=== PATIENT | female | born 2005 | race Caucasian/White ===

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

== ENCOUNTER → 2025-03-05 | Outpatient (CLI) | payer BC, SELFPAY ==
--- OUTSIDE RECORDS SUMMARY | 2025-03-05 17:47 | XMS RPT_ITS | CCD ---
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 Name Role Phone Kvng WAN, Fay Primary Care Provider Kvng, Fay Referring Unavailable Kvng, Fay Attending Unavailable Kvng, Fay Primary Care Unavailable Kvng WAN, Fay Primary Care Provider Kvng WAN, Fay Primary Care Provider Kvng WAN, Fay Primary Care Provider JAILENE SAN Attending Unavailabl e SELF, SELF Referring Unavailable KVNG, FAY Primary Care Unavailable BACILIO PEREZ Attending Unavailable SELF, SELF Referring Unavailable KVNG, FAY Primary Care Unavailable SELF, SELF Referring Unavailable KVNG, FAY Primary Care Unavailable JAILENE SAN Attending Unavailabl e JAILENE SAN Attending Unavailabl e SELF, SELF Referring Unavailable KVNG, FAY Primary Care Unavailable SELF, SELF Referring Unavailable KVNG, FAY Primary Care Unavailable KVNG, FAY Attending Unavailable KVNG, FAY Primary Care Unavailable KVNG, FAY Referring Unavailable KVNG, FAY Primary Care Unavailable KVNG, FAY Primary Care Unavailable KVNG, FAY Referring Unavailable KVNG, FAY Primary Care Unavailable KVNG, FAY Referring Unavailable KVNG, FAY Attending Unavailable KVNG, FAY Primary Care Unavailable Allergies Allergy Classification Reported Allergen(s) Allergy Type Date of Onset Reaction(s) Facility (6 sources) Angiotensin-conve rting enzyme inhibitor agent Propensity to adverse reactions to drug 7 [facility] Work Phone: (6 sources) beta-Blocking agent Propensity to adverse reactions to drug [facility] ([facility] sources) environmental [Other] Propensity to adverse reactions 2 Unknown [facility] (20 sources) Angiotensin-conve rting enzyme inhibitor agent Propensity to adverse reactions to drug 7 Contraindicatio [facility] Work Phone: (20 sources) beta-Blocking agent Propensity to adverse reactions to drug [facility]: (8 sources) *Seasonal Propensity to adverse reactions to substance 3 [facility] Medications Current Medications Medication Drug Class(es) Dates Sig (Normalized) Sig (Original) amoxicillin 875 mg oral tablet (1 source) Penicillin-class Antibacterial Start: 12-20-2022 End: 12-30-2022 take 1 tablet by mouth every twelve hours, then take 1 tablet by mouth twice daily amoxicillin 875 MG tablet Indications: Acute upper respiratory infection Take 1 tablet by mouth every 12 hours for 10 days. One tablet PO bid 20 tablet 0 12/20/2022 12/30/2022 Active 24 hr amphetamine aspartate 6.25 mg / amphetamine sulfate 6.25 mg / dextroamphetamine saccharate 6.25 mg / dextroamphetamine sulfate 6.25 mg extended release oral capsule (20 sources) Central Nervous System Stimulant Start: 07-05-2024 End: 12-24-2024 take 1 capsule by mouth once daily amphetamine-dextro amphetamine XR (ADDERALL XR) 25 mg capsule Indications: Attention deficit hyperactivity disorder (ADHD), predominantly inattentive type Take 1 capsule by mouth once daily for 30 days. 30 capsule 10/04/2024 11/03/2024 Active Start: 10-08-2023 End: 07-05-2024 take 1 capsule by mouth once daily amphetamine-dextroamphetamine XR (ADDERA LL XR) 20 mg capsule Indications: Attention deficit hyperactivity disorder (ADHD), unspecified ADHD type Take 1 capsule by mouth once daily for 30 days. 30 capsule 05/14/2024 07/05/2024 Discontinued Start: 10-08-2023 End: 09-28-2023 take 1 capsule by mouth once daily amphetamine-dextroamphetamine XR (ADDERA LL XR) 20 mg capsule Indications: Attention deficit hyperactivity disorder (ADHD), unspecified ADHD type Take 1 capsule by mouth once daily for 30 days. Do not start before October 08, 2023. 30 capsule 0 10/08/2023 09/28/2023 Discontinued Start: 08-09-2023 End: 12-24-2024 take 1 tablet by mouth once daily in the morning dextroamphetamine-amphetamine (ADDERALL) 10 mg tablet Indications: Attention deficit hyperactivity disorder (ADHD), predominantly inattentive type Take 1 tablet by mouth every morning for 90 days. 90 tablet 09/25/2024 12/24/2024 Active Start: 05-04-2022 End: 11-28-2023 take 1 capsule by mouth once daily amphetamine-dextroamphetamine XR 20 MG C ap SR 24HR capsule Take 1 capsule by mouth daily. 05/04/2022 Active Start: 12-17-2021 End: 03-17-2022 take 1 capsule by mouth once daily, then take 5 capsules by mouth every twenty-four hours amphetamine-dextroamphetamine XR (ADDERA LL XR) 20 mg 24 hr capsule Indications: Attention deficit hyperactivity disorder (ADHD), unspecified ADHD type Take 1 capsule by mouth once daily for 30 days. Do not start before February 15, 2022. 30 capsule 0 02/15/2022 Active Start: 10-19-2021 End: 01-07-2022 take 1 capsule by mouth once daily amphetamine-dextroamphetamine XR (ADDERA LL XR) 10 mg 24 hr capsule Indications: Attention deficit hyperactivity disorder (ADHD), unspecified ADHD type Take 1 capsule by mouth once daily for 30 days. 30 capsule 0 12/08/2021 12/17/2021 Discontinued Start: 10-19-2021 End: 11-18-2021 take 1 tablet by mouth once daily dextroamphetamine-amphetamine (ADDERALL) 10 mg tablet Indications: Attention deficit hyperactivity disorder (ADHD), unspecified ADHD type Take 1 tablet by mouth once daily for 30 days. 30 tablet 0 10/19/2021 Active Start: 04-23-2021 End: 10-19-2021 take 1 capsule by mouth once daily amphetamine-dextroamphetamine XR (ADDERA LL XR) 20 mg 24 hr capsule Indications: Attention deficit hyperactivity disorder (ADHD), unspecified ADHD type Take 1 capsule by mouth once daily for 30 days. 30 capsule 0 07/20/2021 10/19/2021 Discontinued Comment on above: Take 1 capsule by [facility] once daily for 30 days. Do not start before June 22, 2021. Take 1 capsule by [facility] once daily for 30 days. Take 1 capsule by [facility] once daily for 30 days. Do not start before May 23, 2021. Take 1 tablet by [facility] once daily for 30 days. Take 1 capsule by [facility] once daily for 30 days. Do not start before January 16, 2022. Take 1 capsule by [facility] once daily for 30 days. Do not start before February 15, 2022. Take 1 capsule by [facility] once daily for 30 days. Do not start before July 07, 2022. Take 1 capsule by [facility] once daily for 30 days. Do not start before August 06, 2022. cephalexin 500 mg oral capsule (1 source) Cephalosporin Antibacterial Start: 07-10-19 End: 07-17-19 22 take 1 capsule by mouth three times daily cephALEXin (KEFLEX) 500 mg capsule Indications: Acute paronychia of finger of left hand Take 1 capsule by mouth three times daily for 7 days. 21 capsule 0 07/09/2021 07/16/2021 Active Comment on above: Take 1 capsule by [facility] three times daily for 7 days. cromolyn sodium 40 mg/ml ophthalmic solution (4 sources) Mast Cell Stabilizer Start: 07-06-19 25 take 1 drop(s) into the eye(s) four times daily Cromolyn Sodium (CROLOM) 4 % ophthalmic solution Use 1 drop in both eyes four times daily. 10 mL 07/05/2024 Active fexofenadine hydrochloride 180 mg oral tablet (19 sources) Histamine-1 Receptor Antagonist take 1 tablet by mouth once daily fexofenadine (ANIA ALLERGY) 180 mg tablet Take 180 mg by mouth once daily. Active fluconazole 150 mg oral tablet (11 sources) Azole Antifungal Start: 09-26-19 25 fluconazole (DIFLUCAN) 150 mg tablet Take one tablet daily as directed 10 tablet 09/25/2024 Active Start: 04-25-2023 End: 04-25-2023 take 1 tablet by mouth once Fluconazole (Diflucan) 150 MG tablet Indications: Acute cystitis without hematuria Take 1 tablet by mouth once for 1 dose. 1 tablet 04/25/2023 04/25/2023 Active Start: 12-28-2022 End: 08-09-2023 fluconazole (DIFLUCAN) 150 m g tablet Take one tab today. May repeat in three days if still symptomatic. 2 tablet 0 12/28/2022 08/09/2023 Discontinued Comment on above: Take one tab today. May repeat in three days if still symptomatic. fluticasone propionate 0.05 mg/actuat metered dose nasal spray (9 sources) Corticosteroid Start: 01-07-2023 End: 08-09-2023 fluticasone 50 MCG/ACT Suspension nasal spray 2 sprays by Nasal route daily. 9.9 mL 2 07/04/2023 Active levonorgestrel 0.451023 mg/hr intrauterine system (20 sources) Progestin, Progestin-containing Intrauterine Device Start: 03-23-2023 End: 03-21-2031 levonorgestrel (MIRENA) 21 mcg/24 hours (8 yrs) 52 mg IUD Indications: Encounter for IUD insertion 1 Each by INTRAUTERINE route as directed. 1 Each 03/23/2023 03/21/2031 Active Levonorgestrel 2 0 MCG/DAY 1 Intra Uterine Device by Intrauterine route Once. use as directed Active Comment on above: 1 Each by INTRAUTERI NE route as directed. mupirocin 0.02 mg/mg topical ointment (1 source) RNA Synthetase Inhibitor Antibacterial Start: End: 2 mupirocin (BACTROBAN) 2 % ointment Indications: Acute paronychia of finger of left hand Apply to affected area three times daily for 10 days. 22 g 0 07/09/2021 07/19/2021 Active Comment on above: Apply to affected ar ea three times daily for 10 days. olopatadine 1 mg/ml ophthalmic solution (9 sources) Histamine-1 Receptor Inhibitor Start: take 1 drop(s) into the eye(s) twice daily olopatadine (PATANOL) 0.1 % ophthalmic solution Use 1 drop in both eyes two times a day. 5 mL 07/05/2024 Active Start: 07-04-2023 take 1 drop(s) into the eye(s) twice daily as needed olopatadine 0.1 % Solution ophthalmic solution Place 1 drop in both eyes 2 times daily as needed for Allergies. 5 mL 1 07/04/2023 Active sulfamethoxazole 800 mg / trimethoprim 160 mg oral tablet (1 source) Dihydrofolate Reductase Inhibitor Antibacterial, Sulfonamide Antimicrobial Start: 04-25-2023 End: 04-28-2023 take 1 tablet by mouth twice daily Sulfamethoxazole-trimethoprim 800-160 MG per tablet Indications: Acute cystitis without hematuria Take 1 tablet by mouth 2 times daily for 3 days. 6 tablet 04/25/2023 04/28/2023 Active Completed/Discontinued Medications Medication Drug Class(es) Dates Sig (Normalized) Sig (Original) [id number] 200 actuat albuterol 0.09 mg/actuat metered dose inhaler (18 sources) beta2-Adrenergic Agonist Start: 12-13-2022 End: 09-25-2024 take 2 puff(s) by inhalation every four to six hours as needed for cough albuterol HFA (PROVENTIL HFA, VENTOLIN HFA) 90 mcg/actuation inhaler Inhale 2 puffs every 4 - 6 hours as needed for cough, wheezing, or shortness of breath 1 Each 12/13/2022 09/25/2024 Discontinued Comment on above: Inhale 2 puffs every 4 - 6 hours as needed for cough, wheezing, or shortness of breath benzonatate 100 mg oral capsule (7 sources) Non-narcotic Antitussive Start: 12-13-2022 End: 08-09-2023 take 1 capsule by mouth every eight hours as needed benzonatate (TESSALON PERLE) 100 mg capsule Take 1 capsule by mouth three times a day as needed for cough. 15 capsule 0 12/13/2022 08/09/2023 Discontinued Comment on above: Take 1 capsule by [facility] three times a day as needed for cough. cetirizine hydrochloride 10 mg oral tablet (20 sources) Histamine-1 Receptor Antagonist End: 08-09-2023 cetirizine (ZYRTEC) 10 mg tablet Take by mouth at bedtime as needed. 0 08/09/2023 Discontinued End: 10-19-2021 Cetirizine (ZYRTEC) 10 mg ca p Take by mouth as needed. 0 10/19/2021 Discontinued Comment on above: Take by mouth as nee ded. Take by mouth at bed time as needed. Desogestrel / Ethinyl Estradiol (20 sources) Progestin, Estrogen Start: take 1 tablet by mouth once daily, then take 0.15 tablet by mouth once Desogestrel-Ethinyl Estradiol (ENSKYCE) 0.15-0.03 mg per tablet Indications: Menstrual-related mood disorder , Dysmenorrhea , Surveillance for control, oral contraceptives TAKE 1 TABLET BY MOUTH ONCE DAILY. FOR CONTINUOUS USE. 112 tablet 5 02/07/2023 Active Start: 05-10-2022 End: 02-07-2023 take 1 tablet by mouth once daily ENSKYCE 0.15-0.03 mg per tablet Indications: Menstrual-related mood disorder , Dysmenorrhea , Surveillance for control, oral contraceptives TAKE 1 TABLET BY MOUTH ONCE DAILY. FOR CONTINUOUS USE. 112 tablet 5 05/10/2022 02/07/2023 Discontinued Start: 05-10-2022 desogestrel-et hinyl estradiol (Enskyce) 0.15-30 MG-MCG tablet TAKE 1 TABLET BY MOUTH ONCE DAILY. FOR CONTINUOUS USE. 0 05/10/2022 Active Start: 05-10-2022 take 1 tablet by telma th once daily ENSKYCE 0.15-0.03 mg per tablet Indications: Menstrual-related mood disorder , Dysmenorrhea , Surveillance for control, oral contraceptives TAKE 1 TABLET BY MOUTH ONCE DAILY. FOR CONTINUOUS USE. 112 tablet 5 05/10/2022 Active Start: 04-28-2021 take 1 tablet by telma th once daily, then take 0.15 tablet by mouth once Desogestrel-Ethinyl Estradiol (ENSKYCE) 0.15-0.03 mg per tablet Indications: Menstrual-related mood disorder , Dysmenorrhea , Surveillance for control, oral contraceptives Take 1 tablet by mouth once daily. For continuous use. 112 tablet 5 04/28/2021 Active Start: 11-20-2020 Desogestrel-Et hinyl Estradiol Active TAB PO November 19, 2020 11:00pm Comment on above: Take 1 tablet by telma th once daily. For continuous use. [id number] 0.3 ml EPINEPHrine 1 mg/ml auto-injector (20 sources) alpha-Adrenergic Agonist, beta-Adrenergic Agonist, Catecholamine Start: 022 End: EPINEPHrine (EPIPEN 2-CHEMA) 0.3 mg/0.3 mL auto-injector Inject 0.3 mL intramuscularly as needed (for allergic reaction.Seek emergent medical care immediately after use.Disp:one 2-pack w/corporate sales trainer). 1 Each 1 04/03/2021 06/07/2022 Discontinued Comment on above: Inject 0.3 mL intram uscularly as needed (for allergic reaction.Seek emergent medical care immediately after use.Disp:one 2-pack w/corporate sales trainer). 24 hr fexofenadine hydrochloride 180 mg / pseudoephedrine hydrochloride 240 mg extended release oral tablet (20 sources) alpha-Adrenergic Agonist, Histamine-1 Receptor Antagonist take 1 tablet by mouth once daily, then take 1 tablet by mouth every twenty-four hours Fexofenadine-Pseudoep hedrine (ANIA-D 24 HOUR) 180-240 mg per 24 hr tablet Take 1 tablet by mouth once daily. 0 Active Comment on above: Take 1 tablet by [facility] once daily. ketotifen 0.25 mg/ml ophthalmic solution (20 sources) Histamine-1 Receptor Inhibitor End: 023 ketotifen fumarate (ZADITOR) 0.025 % (0.035 %) ophthalmic solution 1 Drop twice daily. 0 03/29/2022 Discontinued Comment on above: 1 Drop twice daily. ondansetron 4 mg disintegrating oral tablet (1 source) Serotonin-3 Receptor Antagonist Start: 015 End: take 4 mg by mouth every eight hours as needed Ondansetron Discontinued 4 MG PO EVERY 8 HOURS NEEDED March 08, 2015 12:00am October 18, 2020 7:18am 12 hr pseudoephedrine hydrochloride 120 mg extended release oral tablet (5 sources) alpha-Adrenergic Agonist Start: 023 End: 024 Pseudoephedrine HCl (SUDAFED SR) 120 mg TbER Take 120 mg by mouth. 0 12/20/2022 08/09/2023 Discontinued Start: 12-20-2022 pseudoephedrin e CR 120 MG Tab SR 12 HR tablet Indications: Acute upper respiratory infection Take 1 tablet by mouth 2 times daily as needed for Congestion (Take regularly for five days, then prn). 20 tablet 0 12/20/2022 Active Comment on above: Take 120 mg by mouth . Problems Active Problems Problem Classification Problem Date Documented Da te Episodic/Chronic Abdominal pain (1 source) Left flank pain; Translations: [Unspecified abdominal pain] 01-07-2023 Episodic Anxiety disorders (3 sources) Generalized anxiety disorder; Translations: [Generalized anxiety disorder] Onset: 01-24-2024 01-24-2024 Chronic Attention-deficit, conduct, and disruptive behavior disorders (20 sources) Attention deficit hyperactivity disorder; Translations: [Attention-deficit hyperactivity disorder, unspecified type] Onset: 01-08-2021 01-08-2021 Chronic Attention-deficit, conduct, and disruptive behavior disorders (1 source) Attention deficit hyperactivity disorder, combined type; Translations: [Attention-deficit hyperactivity disorder, combined type] 01-24-2024 Chronic Attention-deficit, conduct, and disruptive behavior disorders (2 sources) Attention-deficit hyperactivity disorder, combined type; Translations: [Attention-deficit hyperactivity disorder, combined type] Onset: 01-24-2024 Chronic Attention-deficit, conduct, and disruptive behavior disorders (4 sources) Attention deficit hyperactivity disorder, predominantly inattentive type; Translations: [Attention-deficit hyperactivity disorder, predominantly inattentive type] 07-05-2024 Chronic Attention-deficit, conduct, and disruptive behavior disorders (1 source) Attention-deficit hyperactivity disorder, predominantly inattentive type; Translations: [Attention deficit hyperactivity disorder (ADHD), predominantly inattentive type] Onset: 01-08-2021 Chronic Contraceptive and procreative management (4 sources) Oral contraception; Translations: [Encounter for surveillance of contraceptive pills] Episodic Diseases of mouth; excluding dental (3 sources) Disorder of lip; Translations: [Diseases of lips] Onset: 04-25-2024 04-25-2024 Episodic Genitourinary symptoms and ill-defined conditions (2 sources) Increased frequency of urination; Translations: [Frequency of micturition] 04-25-2023 Episodic Immunizations and screening for infectious disease (8 sources) Suspected disease caused by 2019-nCoV; Translations: [Suspected COVID-19 virus infection] Onset: 01-17-2024 Episodic Menstrual disorders (2 sources) Dysmenorrhea; Translations: [Dysmenorrhea, unspecified] Chronic Mood disorders (2 sources) Premenstrual tension syndrome; Translations: [Mood disorder due to known physiological condition, unspecified] Episodic Other aftercare (2 sources) Long-term current use of drug therapy; Translations: [Other mcc (current) drug therapy] Onset: 04-25-2024 04-25-2024 Episodic Other aftercare (2 sources) 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; Translations: [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] Onset: 04-25-2024 Episodic Other aftercare (1 source) Drug indicated; Translations: [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] 09-25-2024 Episodic Other bone disease and musculoskeletal deformities (2 sources) Segmental and somatic dysfunction; Translations: [Segmental and somatic dysfunction of lumbar region] Episodic Other connective tissue disease (1 source) Pain in both feet; Translations: [Pain in right foot] Episodic Other eye disorders (1 source) Disorder of eye; Translations: [Unspecified disorder of eye and adnexa] 07-04-2023 Episodic Other infections; including parasitic (1 source) H/O: infectious disease; Translations: [Personal history of other infectious and parasitic diseases] 04-25-2023 Episodic Other liver diseases (1 source) Elevated liver enzymes level; Translations: [Abnormal levels of other serum enzymes] 09-27-2024 Episodic Other liver diseases (1 source) Abnormal levels of other serum enzymes; Translations: [Elevated liver enzymes] Onset: 10-19-2024 Episodic Other non-traumatic joint disorders (2 sources) Pain in right knee; Translations: [Pain in joint, lower leg] Episodic Other nutritional; endocrine; and metabolic disorders (1 source) Lipids abnormal; 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] 09-27-2024 Chronic Other nutritional; endocrine; and metabolic disorders (1 source) Other lipoprotein metabolism disorders; Translations: [Lipids abnormal] Onset: 10-19-2024 Chronic Other nutritional; endocrine; and metabolic disorders (1 source) Weight gain; Translations: [Abnormal weight gain] 08-09-2023 Episodic Other screening for suspected conditions (not mental disorders or infectious disease) (2 sources) Patient encounter status; Translations: [Encounter for screening for diseases of the blood and blood-forming organs and certain disorders involving the immune mechanism] Onset: 09-25-2024 09-25-2024 Episodic Other skin disorders (3 sources) Acne vulgaris; Translations: [Acne vulgaris] Onset: 04-25-2024 01-24-2024 Episodic Other skin disorders (2 sources) Asteatosis cutis; Translations: [Xerosis cutis] Onset: 04-25-2024 04-25-2024 Episodic Other skin disorders (1 source) Acne vulgaris; Translations: [Acne vulgaris] Onset: 04-25-2024 Episodic Other skin disorders (1 source) Xerosis cutis; Translations: [Xerosis cutis] Onset: 04-25-2024 Episodic Other upper respiratory disease (20 sources) Allergic rhinitis due to pollen; Translations: [Allergic rhinitis due to pollen] Onset: 07-13-2016 Chronic Other upper respiratory disease (20 sources) Allergic rhinitis; Translations: [Allergic rhinitis, unspecified] Onset: 05-01-2012 05-01-2012 Chronic Other upper respiratory disease (20 sources) Seasonal allergic rhinitis; Translations: [Other allergic rhinitis] Onset: 05-01-2012 Resolved: 04-25-2023 07-13-2016 Chronic Other upper respiratory disease (20 sources) Allergic rhinitis due to animal hair and dander; Translations: [Allergic rhinitis due to animal (cat) (dog) hair and dander] Onset: 07-13-2016 07-13-2016 Chronic Other upper respiratory disease (1 source) Allergic rhinitis caused by mold; Translations: [Other allergic rhinitis] Chronic Other upper respiratory infections (2 sources) Sore throat symptom; Translations: [Acute pharyngitis, unspecified] 12-20-2022 Episodic Otitis media and related conditions (1 source) Dysfunction of right eustachian tube; Translations: [Unspecified Eustachian tube disorder, right ear] 01-07-2023 Episodic Skin and subcutaneous tissue infections (1 source) Onychia of finger; Translations: [Cellulitis of left finger] Episodic Spondylosis; intervertebral disc disorders; other back problems (1 source) Backache; Translations: [Dorsalgia, unspecified] Episodic Sprains and strains (2 sources) Strain of calf muscle; Translations: [Strain of other muscle(s) and tendon(s) at lower leg level, right leg, initial encounter] Onset: 02-12-2022 Episodic Urinary tract infections (1 source) Acute cystitis; Translations: [Acute cystitis without hematuria] 04-25-2023 Episodic Past or Other Problems Problem Classification Problem Date Documented Da te Episodic/Chronic Allergic reactions (14 sources) Non-celiac gluten sensitivity; Translations: [Celiac disease] Onset: 02-01-2019 Resolved: 04-03-2021 04-03-2021 Chronic Inflammation; infection of eye (except that caused by tuberculosis or sexually transmitteddisease) (14 sources) Acute atopic conjunctivitis; Translations: [Acute atopic conjunctivitis, unspecified eye] Onset: 05-01-2012 Resolved: 02-01-2019 02-01-2019 Episodic Intracranial injury (20 sources) Concussion with no loss of consciousness; Translations: [Concussion without loss of consciousness, initial encounter] Onset: 05-08-2019 Resolved: 09-25-2024 05-08-2019 Episodic Other connective tissue disease (14 sources) Ligamentous laxity of ankle region; Translations: [Disorder of ligament, unspecified ankle] Onset: 06-04-2013 Resolved: 02-01-2019 02-01-2019 Episodic Other eye disorders (2 sources) Unspecified disorder of eye and adnexa; Translations: [Unspecified disorder of eye and adnexa] Onset: 07-04-2023 Episodic Residual codes; unclassified (14 sources) Obstructive sleep apnea syndrome; Translations: [Obstructive sleep apnea (adult) (pediatric)] Onset: 11-24-2009 Resolved: 11-24-2009 Chronic Syncope (14 sources) Vasovagal syncope; Translations: [Syncope and collapse] Onset: 07-29-2009 Resolved: 02-01-2019 02-01-2019 Episodic Unclassified (1 source) History of headache; Translations: [History of frequent headaches] Viral infection (15 sources) Viral disease; Translations: [Viral infection, unspecified] Onset: 09-18-2010 Resolved: 02-01-2019 12-22-2022 Episodic Results Test Name Value Interpretation Reference Range Facil ity Hepatic function 2000 panelo n 10-19-2024 Albumin [Mass/Vol] 4.5 g/dL Normal 3.9-4.9 [facility] Comment on above: Order Comment: Speci men Type: BLOOD SPECIMEN Ordering Facility: Address: [address] [place] [address] Performed By: #### 2 [id number], [id number] #### [facility] CLIA [id number] [address] [id number] [place] [Catalytic activity/Vol] 70 U/L Normal 34-123 [facility] Comment on above: Order Comment: Speci men Type: BLOOD SPECIMEN Ordering Facility: Address: [address] [place], [place] [id number] Performed By: #### 2 4325-3, 39806-7 #### [facility] CLIA [id number] [address] [place], [place] [address] [place] ALT [Catalytic activity/Vol] 13 U/L Normal 7-38 [facility] Comment on above: Order Comment: Speci men Type: BLOOD SPECIMEN Ordering Facility: Address: [address] [place] [address] Performed By: #### 2 4325-3, 15383-5 #### [facility] CLIA [id number] [address] [place] [address] [place] AST [Catalytic activity/Vol] 24 U/L Normal 13-35 [facility] Comment on above: Order Comment: Speci men Type: BLOOD SPECIMEN Ordering Facility: Address: [address] [place] [address] Performed By: #### 2 4325-3, 47395-8 #### [facility] CLIA [id number] [address] [place] [address] [place] Bilirubin [Mass/Vol] 0.7 mg/dL Normal 0.2-1.3 [facility] Comment on above: Order Comment: Speci men Type: BLOOD SPECIMEN Ordering Facility: Address: [address] [place], [place] [address] Performed By: #### 2 4325-3, 07888-5 #### [facility] CLIA [id number] [address] [place], [place] [address] [place] Bilirubin.conjugated [Mass/Vol] 0.2 mg/dL Normal <0.3 [facility] Comment on above: Order Comment: Speci men Type: BLOOD SPECIMEN Ordering Facility: Address: [address] [place] [address] Performed By: #### 2 4325-3, 49404-8 #### [facility] CLIA [id number] [address] [place] [address] [place] Protein [Mass/Vol] 7.4 g/dL Normal 6.3-8.0 [facility] Comment on above: Order Comment: Speci men Type: BLOOD SPECIMEN Ordering Facility: Address: [address] [place] [address] Performed By: #### 2 4325-3, 68357-4 #### [facility] CLIA [id number] [address] [place] [address] [place] Lipid 1996 panelon 5 Cholesterol [Mass/Vol] 200 mg/dL High <200 [facility] Comment on above: Order Comment: Speci men Type: BLOOD SPECIMEN Ordering Facility: Address: [address] [place] [address] Result Comment: <200 mg/dL, Desirable 200-239 mg/dL, Borderline high >239 mg/dL, High Performed By: #### 2 4325-3, 14690-7 #### [facility] CLIA [id number] [address] [place] [address] [place] Cholesterol in HDL [Mass/Vol] 63 mg/dL Normal >39 [facility] Comment on above: Order Comment: Speci men Type: BLOOD SPECIMEN Ordering Facility: Address: [address] [place] [address] Result Comment: 40-5 9 mg/dL, Acceptable >59 mg/dL, High: Negative risk factor for coronary heart disease <40 mg/dL, Low: Positive risk factor for coronary heart disease Performed By: #### 2 4325-3, 74157-1 #### [facility] CLIA [id number] [address] [place] [address] [place] Cholesterol in LDL [Mass/Vol] 128 mg/dL High <100 [facility] Comment on above: Order Comment: Alejo parsons Type: BLOOD SPECIMEN Ordering Facility: Address: [address] [place] [address] Result Comment: <100 mg/dL, Optimal 100-129 mg/dL, Near optimal/above optimal 130-159 mg/dL, Borderline high 160-189 mg/dL, High >189 mg/dL, Very high Secondary prevention optimal LDL Cholesterol levels are recommended to be <70 mg/dL LDL cholesterol is calculated using the Kulkarni-NIH equation. Performed By: #### 2 4325-3, 63038-3 #### [facility] CLIA [id number] [address] [place] [address] [place] Cholesterol in LDL/Cholesterol in HDL [Mass ratio] 2.03 {ratio} Normal <2.54 [facility] Comment on above: Order Comment: Alejo parsons Type: BLOOD SPECIMEN Ordering Facility: Address: [address] [place] [address] Result Comment: Weston fuentes: 1. National Cholesterol Education Program ATP III Guideline At-A-Glance Quick Desk Reference: National Heart, Lung, and Blood [place]. National Institutes of Health. 2001: NIH Publication No. 01-3305. 2. An International Atherosclerosis Society position paper: global recommendations for the management of dyslipidemia: executive summary, Atherosclerosis. 2014: 232(2):410-413. Cut Points from the Lipid Research Clinic's Prevalence Study for ages 20 to 24 years can be located in the following reference: Expert Panel on Integrated Guidelines for Cardiovascular Health and Risk Reduction in Children and Adolescents: National Heart, Lung and Blood [place]. Pediatrics. 2011:128(Suppl 5):X851-195. Performed By: #### 2 4325-3, 35281-6 #### [facility] CLIA [id number] [facility] [place] [address] [place] Cholesterol in VLDL [Mass/Vol] 9 mg/dL Normal <30 [facility] Comment on above: Order Comment: Speci men Type: BLOOD SPECIMEN Ordering Facility: Address: [address] [place] [id number] Performed By: #### 2 4325-3, 35067-4 #### [facility] CLIA [id number] [address] [place], [place] [address] [place] Cholesterol non HDL [Mass/Vol] 137 mg/dL High <130 [facility] Comment on above: Order Comment: Speci men Type: BLOOD SPECIMEN Ordering Facility: Address: [address] [place] [address] Result Comment: <130 mg/dL, Optimal 130-159 mg/dL, Near optimal/above optimal 160-189 mg/dL, Borderline high 190-219 mg/dL, High >219 mg/dL, Very high Secondary prevention optimal non HDL Cholesterol levels are recommended to be <100 mg/dL Performed By: #### 2 4325-3, 91219-8 #### [facility] CLIA [id number] [address] [place] [address] [place] Cholesterol.total/Cho lesterol in HDL [Mass ratio] 3.17 {ratio} Normal <5.10 [facility] Comment on above: Order Comment: Speci men Type: BLOOD SPECIMEN Ordering Facility: Address: [address] [place] [address] Performed By: #### 2 4325-3, 00274-9 #### [facility] CLIA [id number] [address] [place], [place] [address] [place] FASTING TIME 13 hrs Normal [facility] Comment on above: Order Comment: Speci men Type: BLOOD SPECIMEN Ordering Facility: Address: [address] [place], [place] [address] Performed By: #### 2 4325-3, 42011-4 #### [facility] CLIA [id number] [address] [place], [place] [address] [place] Triglyceride [Mass/Vol] 51 mg/dL Normal <150 [facility] Comment on above: Order Comment: Speci men Type: BLOOD SPECIMEN Ordering Facility: Address: [address] [place] [address] Result Comment: <150 mg/dL, Normal 150-199 mg/dL, Borderline high 200-499 mg/dL, High >499 mg/dL, Very high Performed By: #### 2 4325-3, 09365-0 #### [facility] CLIA [id number] [address] [place] [address] [place] CNPNon 10-15-2024 CNPN Telephone (PEDSWS) KATELYNN BAUER ([id number]) 3 F Date Time Provider Department 10/15/24 FAY CALDERON During your visit today, we recorded the following information about you: Fay Calderon MD 10/15/2024 2:05 PM Signed Please help parent or patient schedule pt with Food allergy clinic MD Sami Grossman Amanda S, RN 10/15/2024 2:15 PM Signed Left message to call office. 10/15/2024 2:15 PM VALERIE Marquez Cherryle, RN 10/16/2024 4:46 PM Signed scheduled Diana Davies RN Allergies As of Date: 10/15/2024 (No Known Allergies) Date Reviewed: 09/25/2024 Reviewed by: Valerie Alanis LPN - Fully Assessed Reason for Visit: food allergy clinic appointment [Other] Primary Visit Diagnosis:History of peanut allergy [Z91.010] Order(s):[facility] [[id number]] Order #: [id number]: 1 Prescriptions as of 10/16/2024 - amphetamine-dextroam phetamine XR (ADDERALL XR) 25 mg capsule Take 1 capsule by mouth once daily for 30 days. - fluconazole (DIFLUCAN) 150 mg tablet Take one tablet daily as directed - amphetamine-dextroam phetamine XR (ADDERALL XR) 25 mg capsule Take 1 capsule by mouth once daily for 90 days. - dextroamphetamine-am phetamine (ADDERALL) 10 mg tablet Take 1 tablet by mouth every morning for 90 days. - Cromolyn Sodium (CROLOM) 4 % ophthalmic solution Use 1 drop in both eyes four times daily. - olopatadine (PATANOL) 0.1 % ophthalmic solution Use 1 drop in both eyes two times a day. - fexofenadine (ANIA ALLERGY) 180 mg tablet Take 180 mg by mouth once daily. - levonorgestrel (MIRENA) 21 mcg/24 hours (8 yrs) 52 mg IUD 1 Each by INTRAUTERINE route as directed. Problem List As Of Date 10/15/2024 Noted Resolved Syncopes, vasovagal 07/29/2009 02/01/2019 Obstructive Sleep Apnea [G47.33] 11/24/2009 11/24/2009 Verruca [B07.9] 09/18/2010 02/01/2019 Acute atopic conjunctivitis [H10.10] 05/01/2012 02/01/2019 Allergic rhinitis (md giorgio, tr, gr, we ,ra) [J30.*05/01/2012 Ligamentous laxity of ankle [M24.273] 06/04/2013 02/01/2019 Seasonal allergic rhinitis due to pollen [J30.1]07/13/2016 Seasonal allergic rhinitis due to fungal spores*07/13/2016 Allergic rhinitis due to animal hair and dander*07/13/2016 Gluten intolerance [K90.41] 02/01/2019 04/03/2021 Concussion without loss of consciousness [S06.0*05/08/2019 09/25/2024 Attention deficit hyperactivity disorder (ADHD)*01/08/2021 Encounter Status:Closed by DIANA DAVIES on 10/16/24 [facility] C. trachomatis+N. gonorrhoea e DNA KAYE+probe Ql (Unsp spec)on 09-25-2024 C. trachomatis rRNA KAYE+probe Ql (Unsp spec) Not detected Normal Not detected [facility] Comment on above: Order Comment: Speci men Type: URINE SPECIMENOrdering Facility: Address: [address] [place] [address] Performed By: #### 3 6902-5, TRVAMP ####[facility] [id number] [address] N. gonorrhoeae rRNA KAYE+probe Ql (Unsp spec) Not detected Normal Not detected [facility] Comment on above: Order Comment: Speci men Type: URINE SPECIMENOrdering Facility: Address: [address] [place] [address] Performed By: #### 3 6902-5, TRVAMP ####[facility] [id number] [address] OF [facility] CBC panel Auto (Bld)on 09-25 Erythrocyte distribution width (RBC) [Ratio] 12.8 % 11.5 - 15.0 % [facility] Hematocrit (Bld) [Volume fraction] 39.7 % 36.0 - 46.0 % [facility] Hemoglobin (Bld) [Mass/Vol] 13.2 g/dL 11.5 - 15.5 g/dL [facility] Interpretation and review of laboratory results Normal [facility] MCH (RBC) [Entitic mass] 30.1 pg 26.0 - 34.0 pg [facility] MCHC (RBC) [Mass/Vol] 33.2 g/dL 30.5 - 36.0 g/dL [facility] MCV (RBC) [Entitic vol] 90.4 fL 80.0 - 100.0 fL [facility] Nucleated RBC (Bld) [#/Vol] NINF [facility] Platelet mean volume (Bld) [Entitic vol] 9.9 fL 9.0 - 12.7 fL [facility] Platelets (Bld) [#/Vol] 269 10*3/uL [facility] RBC (Bld) [#/Vol] 4.39 10*6/uL 3.90 - 5.2 0 m/uL [facility] WBC (Bld) [#/Vol] 5.83 10*3/uL [facility] Erythrocyte distribution width (RBC) [Ratio] 12.8 % Normal 11.5-15.0 [facility] Comment on above: Order Comment: Speci men Type: BLOOD SPECIMEN Ordering Facility: Address: [address] [place] [address] Performed By: #### 5 8410-2 #### [facility] CLIA [id number] [address] [place] [address] [place] Hematocrit (Bld) [Volume fraction] 39.7 % Normal 36.0-46.0 [facility] Comment on above: Order Comment: Speci men Type: BLOOD SPECIMEN Ordering Facility: Address: [address] [place] [address] Performed By: #### 5 8410-2 #### [facility] CLIA [id number] [address] [place] [address] [place] Hemoglobin (Bld) [Mass/Vol] 13.2 g/dL Normal 11.5-15.5 [facility] Comment on above: Order Comment: Speci men Type: BLOOD SPECIMEN Ordering Facility: Address: [address] [place] [address] Performed By: #### 5 8410-2 #### [facility] CLIA [id number] [address] [place] [address] [place] MCH (RBC) [Entitic mass] 30.1 pg Normal 26.0-34.0 [facility] Comment on above: Order Comment: Speci men Type: BLOOD SPECIMEN Ordering Facility: Address: [address] [place] [address] Performed By: #### 5 8410-2 #### [facility] CLIA [id number] [address] [place] [address] [place] MCHC (RBC) [Mass/Vol] 33.2 g/dL Normal 30.5-36.0 [facility] Comment on above: Order Comment: Speci men Type: BLOOD SPECIMEN Ordering Facility: Address: [address] [place] [address] Performed By: #### 5 8410-2 #### [facility] CLIA [id number] [address] [place] [address] [place] MCV (RBC) [Entitic vol] 90.4 fL Normal 80.0-100.0 [facility] Comment on above: Order Comment: Speci men Type: BLOOD SPECIMEN Ordering Facility: Address: [address] [place] [address] Performed By: #### 5 8410-2 #### [facility] CLIA [id number] [address] [place] [address] [place] Nucleated RBC (Bld) [#/Vol] 10*3/uL Normal <0.01 [facility] Comment on above: Order Comment: Speci men Type: BLOOD SPECIMEN Ordering Facility: Address: [address] [place] [address] Performed By: #### 5 8410-2 #### [facility] CLIA [id number] [address] [place] [address] [place] Platelet mean volume (Bld) [Entitic vol] 9.9 fL Normal 9.0-12.7 [facility] Comment on above: Order Comment: Speci men Type: BLOOD SPECIMEN Ordering Facility: Address: [address] [place] [address] Performed By: #### 5 8410-2 #### [facility] CLIA [id number] [address] [place] [address] [place] Platelets (Bld) [#/Vol] 269 10*3/uL Normal 150-400 [facility] Comment on above: Order Comment: Speci men Type: BLOOD SPECIMEN Ordering Facility: Address: [address] [place] [address] Performed By: #### 5 8410-2 #### [facility] CLIA [id number] [address] [place] [address] [place] RBC (Bld) [#/Vol] 4.39 10*6/uL Normal 3.90-5.20 [facility] Comment on above: Order Comment: Speci men Type: BLOOD SPECIMEN Ordering Facility: Address: [address] [place] [address] Performed By: #### 5 8410-2 #### [facility] CLIA [id number] [address] [place] [address] [place] WBC (Bld) [#/Vol] 5.83 10*3/uL Normal 3.70-11.00 [facility] Comment on above: Order Comment: Speci men Type: BLOOD SPECIMEN Ordering Facility: Address: [address] [place] [address] Performed By: #### 5 8410-2 #### [facility] CLIA [id number] [address] [place] [address] OF [facility] CNOVon 09-25-2024 CNOV Office Visit (PEDSWS) KATELYNN BAUER ([id number]) 3 F Date Time Provider Department 09/25/24 11:30 AM FAY CALDERON During your visit today, we recorded the following information about you: Temperature Pulse Respiration Blood pressure 98.1 degrees 72/minute 16/minute 110/74 Weight Height 73.4 kg 1.743 m Fay Calderon MD 09/25/2024 1:31 PM Signed WELL VISIT PEDIATRIC 18+ YRS OLD Katelynn is a 19 year old who presents today for well exam. SUBJECTIVE CONCERNS: no additional concerns HISTORY ACTIVE PROBLEM LIST Attention Deficit Hyperactivity Disorder (Adhd) - 01/08/2021 Concussion Without Loss of Consciousness - 05/08/2019 Comment: 05/30, 05/03 Seasonal Allergic Rhinitis Due to Pollen - 07/13/2016 Seasonal Allergic Rhinitis Due to Fungal Spores - 07/13/2016 Allergic Rhinitis Due to Animal Hair and Dander - 07/13/2016 Allergic rhinitis (c, md, tr, gr, we ,ra) - 05/01/2012 PAST MEDICAL HISTORY Diagnosis Date ADHD (attention deficit hyperactivity disorder) 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 Syncopal episodes 5x total PAST SURGICAL HISTORY Procedure Laterality Date PAST SURGICAL HISTORY OF 07/2018 endoscopy TONSILLECTOMY AND ADENOIDECTOMY T/A (under age 12 years) ALLERGIES No Known Allergies Medications: Cromolyn Sodium (CROLOM) 4 % ophthalmic solution Use 1 drop in both eyes four times daily. olopatadine (PATANOL) 0.1 % ophthalmic solution Use 1 drop in both eyes two times a day. fexofenadine (ANIA ALLERGY) 180 mg tablet Take 180 mg by mouth once daily. levonorgestrel (MIRENA) 21 mcg/24 hours (8 yrs) 52 mg IUD 1 Each by INTRAUTERINE route as directed. albuterol HFA (PROVENTIL HFA, VENTOLIN HFA) 90 mcg/actuation inhaler Inhale 2 puffs every 4 - 6 hours as needed for cough, wheezing, or shortness of breath FAMILY HISTORY Problem Relation Age of Onset other (osteopenia) Mother None Father None Brother Social History Social History Narrative Not on file Smoking Exposure: Do you spend a significant amount of time with anyone who smokes? No School: Entering College. No academic or school related concerns No behavioral concerns Any concerns regarding peer interactions? No Recreational Screen Time totaling more than 2 hours of screen time per day. Physical Activity: more than 1 hour of physical activity per day Fainting, dizziness, significant shortness of breath or chest pain with sports or exercise: No History of concussion in the last year: No Safety: 04/03/2021 Pediatric SDOH - Response to gun questions Are there any guns kept in or around your home or where your child spends time? No Reviewed seat belts, bike helmets, and smoke detectors Diet: -Diet is well balanced and appropriate for age -Fruits are eaten with most meals -Vegetables are eaten with most meals -Drinks whole milk -Drinks water daily -Regularly eats meals with family Elimination: no concerns Dental: dental care current Sleep: -no sleep concerns Yes, cell phone turned off before bedtime- Yes Vision: No vision concerns Hearing: No hearing concerns Growth: No growth concerns Gynecological history: IUD Sexual History: Attraction: male Sexually Active: yes Screening tools reviewed and discussed with patient/dwcskb-FZU-6 , PHQ-9, and Social Determinants of Health. Please see Patient Entered Data. SDOH: Food Insecurity: No Food Insecurity (06/07/2022) Hunger Vital Sign Worried About Running Out of Food in the Last Year: Never true Ran Out of Food in the Last Year: Never true Financial Resource Strain: Low Risk (06/07/2022) Overall Financial Resource Strain (CARDIA) Difficulty of Paying Living Expenses: Not hard at all Transportation Needs: No Transportation Needs (06/07/2022) PRAPARE - Transportation Lack of Transportation (Medical): No Lack of Transportation (Non-Medical): No Housing Stability: Low Risk (06/07/2022) Housing Stability Vital Sign Unable to Pay for Housing in the Last Year: No Number of Places Lived in the Last Year: 1 Unstable Housing in the Last Year: No Discussed SDOH results with patient/family. SDOH needs identified: no concerns identified OBJECTIVE Physical Exam: BP 110/74 Pulse 72 Temp 36.7 ?C (98.1 ?F) (Temporal) Resp 16 Ht 174.3 cm (5' 8.62) Wt 73.4 kg (161 lb 12.8 oz) LMP 03/02/2023 BMI 24.16 kg/m? Blood pressure %teresa are not available for patients who are 18 years or older. Blood pressure %teresa are not available for patients who are 18 years or older. Normalized BMI data available only for age 0 to 20 years. Last BMI: Wt: 78.9 kg (174 lb) (93%, Z= 1.49)* BMI: 25.74 kg/(m2) Last 4 Encounter Wt Readings: Date: Wt: (more content not included)... Normal [facility] FERRITINon 09-25-2024 Ferritin [Mass/Vol] 54.3 ng/mL 14.7 - 2 05.1 ng/mL [facility] Ferritin SerPl-mCncon 2024 Ferritin [Mass/Vol] 54.3 ng/mL Normal 14.7-205.1 [facility] Comment on above: Order Comment: Speci men Type: BLOOD SPECIMENOrdering Facility: Address: [address] [place] [address] Performed By: #### 2 4325-3, LIPNF, 64949-4, 2276-4 ####[facility] [id number] [place] [address] [place] Ferritin [Mass/Vol]on 2024 Interpretation and review of laboratory results Normal [facility] HIV 1+2 Ab IA Qlon HIV 1 and 2 Ab IA.rapid Nom (S/P/Bld) Normal [facility] Comment on above: Order Comment: Speci men Type: BLOOD SPECIMEN Ordering Facility: Address: [address] [place] [address] Result Comment: Test not indicated. Performed By: #### 7 3752-8, 65064-4 #### [facility] CLIA [id number] [address] [place] [address] [place] HIV 1+2 Ab+HIV1 p24 Ag IA Ql Non-Reactive Normal Nonreactive [facility] Comment on above: Order Comment: Speci men Type: BLOOD SPECIMEN Ordering Facility: Address: [address] [place] [address] Performed By: #### 7 3752-8, 33476-7 #### [facility] CLIA [id number] [address] [place] [address] [place] HIV immunoassay testing algorithm interpretation (S/P/Bld) [Interp] Normal [facility] Comment on above: Order Comment: Speci men Type: BLOOD SPECIMEN Ordering Facility: Address: [address] [place] [address] Result Comment: No e vidence of HIV-1 or HIV-2 infection. Should recent infection be suspected, repeat testing may be considered 2-3 weeks after this draw. [place] Rev. Code 3701.243(E): This information has been disclosed to you from confidential records protected from disclosure by state law. You shall make no further disclosure of this information without the specific, written, and informed release of the individual to whom it pertains or as otherwise permitted by state law. A general authorization for the release of medical or other information is not sufficient for the purpose of the release of HIV test results or diagnoses. Performed By: #### 7 3752-8, 23837-2 #### [facility] CLIA [id number] [address] [place] [address] [place] Hepatic function 2000 panelo n 09-25-2024 Albumin [Mass/Vol] 4.6 g/dL 3.9 - 4.9 g/dL [facility] ALP [Catalytic activity/Vol] 79 U/L 34 - 123 U/L [facility] ALT [Catalytic activity/Vol] 53 U/L High 7 - 38 U/L [facility] AST [Catalytic activity/Vol] 69 U/L High 13 - 35 U/L [facility] Bilirubin [Mass/Vol] 0.4 mg/dL 0.2 - 1.3 mg/dL [facility] Bilirubin.conjugated [Mass/Vol] 0.1 mg/dL NINF - 0.3 mg/dL [facility] Protein [Mass/Vol] 7.5 g/dL 6.3 - 8.0 g/dL [facility] Albumin [Mass/Vol] 4.6 g/dL Normal 3.9-4.9 [facility] Comment on above: Order Comment: Speci men Type: BLOOD SPECIMEN Ordering Facility: Address: [address] [place] [address] Performed By: #### 2 4325-3, LIPNF, 66511-3, 2276-4 #### [facility] CLIA [id number] [address] [id number] [address] [place] ALP [Catalytic activity/Vol] 79 U/L Normal 34-123 [facility] Comment on above: Order Comment: Speci men Type: BLOOD SPECIMEN Ordering Facility: Address: [address] [place] [address] Performed By: #### 2 4325-3, LIPNF, 46154-2, 2275-4 #### [facility] CLIA [id number] [address] [place] [address] [place] ALT [Catalytic activity/Vol] 53 U/L High 7-38 [facility] Comment on above: Order Comment: Speci men Type: BLOOD SPECIMEN Ordering Facility: Address: [address] [place] [address] Performed By: #### 2 4325-3, LIPNF, 19294-5, 2275-06 #### [facility] CLIA [id number] [address] [place] [address] [place] AST [Catalytic activity/Vol] 69 U/L High 13-35 [facility] Comment on above: Order Comment: Speci men Type: BLOOD SPECIMEN Ordering Facility: Address: [address] [place] [address] Performed By: #### 2 4325-3, LIPNF, 23027-7, 4 #### [facility] CLIA [id number] [address] [place] [address] [place] Bilirubin [Mass/Vol] 0.4 mg/dL Normal 0.2-1.3 [facility] Comment on above: Order Comment: Speci men Type: BLOOD SPECIMEN Ordering Facility: Address: [address] [place] [address] Performed By: #### 2 4325-3, LIPNF, 86762-8, 2275-06 #### [facility] CLIA [id number] [address] [place] [address] [place] Bilirubin.conjugated [Mass/Vol] 0.1 mg/dL Normal <0.3 [facility] Comment on above: Order Comment: Speci men Type: BLOOD SPECIMEN Ordering Facility: Address: [address] [place] [address] Performed By: #### 2 4325-3, LIPNF, 57587-6, 2275-06 #### [facility] CLIA [id number] [address] [place] [address] [place] Protein [Mass/Vol] 7.5 g/dL Normal 6.3-8.0 [facility] Comment on above: Order Comment: Speci men Type: BLOOD SPECIMEN Ordering Facility: Address: [address] [place] [address] Performed By: #### 2 4325-3, LIPNF, 60412-8, 2275-06 #### [facility] CLIA [id number] [address] [place] [address] [place] Iron and Iron binding capaci ty panel 09-25-2024 Interpretation and review of laboratory results Normal [facility] Iron [Mass/Vol] 90 ug/dL 41 - 186 ug/dL [facility] Iron binding capacity [Mass/Vol] 355 ug/dL 232 - 386 ug/dL [facility] Iron/TIBC [Molar ratio] 25.4 % 15.0 - 57.0 % [facility] Iron [Mass/Vol] 90 ug/dL Normal 41-186 [facility] Comment on above: Order Comment: Speci men Type: BLOOD SPECIMEN Ordering Facility: Address: [address] [place] [address] Performed By: #### 2 4325-3, LIPNF, 99694-4, 2275-06 #### [facility] CLIA [id number] [address] [place] [address] [place] Iron binding capacity [Mass/Vol] 355 ug/dL Normal 232-386 [facility] Comment on above: Order Comment: Speci men Type: BLOOD SPECIMEN Ordering Facility: Address: [address] [place] [address] Performed By: #### 2 4325-3, LIPNF, 34538-8, 2276-4 #### [facility] CLIA [id number] [address] [place], [place] [address] [address] [place] Iron/TIBC [Molar ratio] 25.4 % Normal 15.0-57.0 [facility] Comment on above: Order Comment: Speci men Type: BLOOD SPECIMEN Ordering Facility: Address: [address] [place] [address] Performed By: #### 2 4325-3, LIPNF, 72917-2, 2276-4 #### [facility] CLIA [id number] [address] [place], [place] [address] [address] [place] LIPID PANEL, NONFASTINGon Cholesterol [Mass/Vol] 207 mg/dL High NINF - 200 mg/dL [facility] Comment on above: <200 mg/dL, Desirabl e 200-239 mg/dL, Borderline high >239 mg/dL, High HDL Cholesterol, Nonfasting 72 mg/dL 39 - PINF mg/dL [facility] Comment on above: 40-59 mg/dL, Accepta ble >59 mg/dL, High: Negative risk factor for coronary heart disease <40 mg/dL, Low: Positive risk factor for coronary heart disease LDL Cholesterol Calculated, Nonfasting 127 mg/dL High NINF - 100 mg/dL [facility] Comment on above: <100 mg/dL, Optimal 100-129 mg/dL, Near optimal/above optimal 130-159 mg/dL, Borderline high 160-189 mg/dL, High >189 mg/dL, Very high Secondary prevention optimal LDL Cholesterol levels are recommended to be <70 mg/dL LDL cholesterol is calculated using the Kulkarni-NIH equation. LDL/HDL Ratio, Nonfasting 1.76 mg/dL NINF - 2.54 mg/dL [facility] Comment on above: Reference: 1. National Cholesterol Education Program ATP III Guideline At-A-Glance Quick Desk Reference: National Heart, Lung, and Blood [place]. National Institutes of Health. 2001: NIH Publication No. 01-3305. 2. An International Atherosclerosis Society position paper: global recommendations for the management of dyslipidemia: executive summary, Atherosclerosis. 2014: 232(2):410-413. Cut Points from the Lipid Research Clinic's Prevalence Study for ages 20 to 24 years can be located in the following reference: Expert Panel on Integrated Guidelines for Cardiovascular Health and Risk Reduction in Children and Adolescents: National Heart, Lung and Blood [place]. Pediatrics. 2011:128(Suppl 5):O881-672. Non HDL Cholesterol, Nonfasting 135 mg/dL High NINF - 130 mg/dL [facility] Comment on above: <130 mg/dL, Optimal 130-159 mg/dL, Near optimal/above optimal 160-189 mg/dL, Borderline high 190-219 mg/dL, High >219 mg/dL, Very high Secondary prevention optimal non HDL Cholesterol levels are recommended to be <100 mg/dL Total Chol/HDL Ratio, Nonfasting 2.88 mg/dL NINF - 5.10 mg/dL [facility] Triglycerides, Nonfasting 45 mg/dL NINF - 150 mg/dL [facility] Comment on above: <150 mg/dL, Normal 150-199 mg/dL, Borderline high 200-499 mg/dL, High >499 mg/dL, Very high VLDL Cholesterol, Nonfasting 8 mg/dL NINF - 30 mg/dL [facility] Cholesterol [Mass/Vol] 207 mg/dL High <200 [facility] Comment on above: Order Comment: Alejo parsons Type: BLOOD SPECIMEN Ordering Facility: Address: [address] [place] [address] Result Comment: <200 mg/dL, Desirable 200-239 mg/dL, Borderline high >239 mg/dL, High Performed By: #### 2 4325-3, LIPNF, 09213-6, 2276-4 #### [facility] CLIA [id number] [address] [place] [address] [place] HDL CHOLESTEROL, NF 72 mg/dL Normal >39 [facility] Comment on above: Order Comment: Alejo parsons Type: BLOOD SPECIMEN Ordering Facility: Address: [address] [place] [address] Result Comment: 40-5 9 mg/dL, Acceptable >59 mg/dL, High: Negative risk factor for coronary heart disease <40 mg/dL, Low: Positive risk factor for coronary heart disease Performed By: #### 2 4325-3, LIPNF, 43068-4, 2275-4 #### [facility] CLIA [id number] [address] [place] [address] LDL CHOLESTEROL CALCULATED, NF 127 mg/dL High <100 [facility] Comment on above: Order Comment: Alejo parsons Type: BLOOD SPECIMEN Ordering Facility: Address: [address] [place] [address] Result Comment: <100 mg/dL, Optimal 100-129 mg/dL, Near optimal/above optimal 130-159 mg/dL, Borderline high 160-189 mg/dL, High >189 mg/dL, Very high Secondary prevention optimal LDL Cholesterol levels are recommended to be <70 mg/dL LDL cholesterol is calculated using the Kulkarni-NIH equation. Performed By: #### 2 4325-3, LIPNF, 10051-0, 2275-06 #### [facility] CLIA [id number] [address] [place] [address] OF [facility] LDL/HDL RATIO, NF 1.76 mg/dL Normal <2.54 [facility] Comment on above: Order Comment: Alejo parsons Type: BLOOD SPECIMEN Ordering Facility: Address: [address] [place] [address] Result Comment: Refe rence: 1. National Cholesterol Education Program ATP III Guideline At-A-Glance Quick Desk Reference: National Heart, Lung, and Blood [place]. National Institutes of Health. 2001: NIH Publication No. 01-3305. 2. An International Atherosclerosis Society position paper: global recommendations for the management of dyslipidemia: executive summary, Atherosclerosis. 2014: 232(2):410-413. Cut Points from the Lipid Research Clinic's Prevalence Study for ages 20 to 24 years can be located in the following reference: Expert Panel on Integrated Guidelines for Cardiovascular Health and Risk Reduction in Children and Adolescents: National Heart, Lung and Blood [place]. Pediatrics. 2011:128(Suppl 5):O000-068. Performed By: #### 2 4325-3, LIPNF, 76632-6, 2275-06 #### [facility] CLIA [id number] [address] [place] [address] [place] NON HDL CHOL, NF 135 mg/dL High <130 [facility] Comment on above: Order Comment: Speci men Type: BLOOD SPECIMEN Ordering Facility: Address: [address] [place] [address] Result Comment: <130 mg/dL, Optimal 130-159 mg/dL, Near optimal/above optimal 160-189 mg/dL, Borderline high 190-219 mg/dL, High >219 mg/dL, Very high Secondary prevention optimal non HDL Cholesterol levels are recommended to be <100 mg/dL Performed By: #### 2 4325-3, LIPNF, 37849-9, 2275-06 #### [facility] CLIA [id number] [address] [place] [address] [place] T CHOL/HDL RATIO NF 2.88 mg/dL Normal <5.10 [facility] Comment on above: Order Comment: Speci men Type: BLOOD SPECIMEN Ordering Facility: Address: [address] [place] [address] Performed By: #### 2 4325-3, LIPNF, 24280-5, 2275-06 #### [facility] CLIA [id number] [address] [place] [address] [place] TRIGLYCERIDES, NF 45 mg/dL Normal <150 [facility] Comment on above: Order Comment: Speci men Type: BLOOD SPECIMEN Ordering Facility: Address: [address] [place], [place] [address] Result Comment: <150 mg/dL, Normal 150-199 mg/dL, Borderline high 200-499 mg/dL, High >499 mg/dL, Very high Performed By: #### 2 4325-3, LIPNF, 56720-2, 2275-06 #### [facility] CLIA [id number] [address] [place] [address] [place] VLDL CHOLESTEROL, NF 8 mg/dL Normal <30 [facility] Comment on above: Order Comment: Speci men Type: BLOOD SPECIMEN Ordering Facility: Address: [address] [place] [address] Performed By: #### 2 4325-3, LIPNF, 80653-3, 2276-4 #### [facility] CLIA [id number] [address] [place] [address] [place] No Panel Informationon 09-25 Interpretation and review of laboratory results Abnormal [facility] Reagin and Treponema pallidu m IgG and IgM [Interp]on 09-25-2024 T. pallidum IgG+IgM IA Ql (S) Non-Reactive Normal Nonreactive [facility] Comment on above: Order Comment: Speci men Type: BLOOD SPECIMEN Ordering Facility: Address: [address] [place] [address] Performed By: #### 7 3752-8, 94333-6 #### [facility] CLIA [id number] [address] [place] [address] [place] Reagin+T pallidum IgG+IgM Se rPl-Impon 09-25-2024 Reagin and Treponema pallidum IgG and IgM [Interp] Cannot exclude recent Treponemal infection if specimen collected within 7-10 days after appearance of suspect lesions or 2-3 weeks after an exposure. Clinical correlation is required. Normal [facility] Comment on above: Order Comment: Speci men Type: BLOOD SPECIMEN Ordering Facility: Address: [address] [place] [address] Performed By: #### 7 3752-8, 04866-4 #### [facility] CLIA [id number] [address] [place] [address] [place] TRICHOMONAS VAGINALIS NAATon 09-25-2024 T. vaginalis DNA KAYE+probe Ql (Unsp spec) Not detected Normal Not detected [facility] Comment on above: Order Comment: Speci men Type: URINE SPECIMENOrdering Facility: Address: [address] [place] [address] Performed By: #### 3 6902-5, YUDELKA ####[facility] [id number] [facility] [place] [address] [place] HEPATIC FUNCTION PANELon Albumin [Mass/Vol] 4.4 g/dL Normal 3.5-5.0 [facility] Comment on above: Performed By: #### H GIFTY, HFP #### [facility] (DEFAULT) [address] [place] [address] ALP [Catalytic activity/Vol] 72 U/L Normal 32-126 [facility] Comment on above: Performed By: #### H GIFTY, HFP #### [facility] (DEFAULT) [address] [place] [address] ALT [Catalytic activity/Vol] 13 U/L Normal 9-48 [facility] Comment on above: Performed By: #### H GIFTY, HFP #### [facility] (DEFAULT) [address] [place] [address] AST [Catalytic activity/Vol] 19 U/L Normal 10-39 [facility] Comment on above: Performed By: #### H GIFTY, HFP #### [facility] (DEFAULT) [address] [place] [address] Bilirubin [Mass/Vol] 0.7 mg/dL Normal <1.5 [facility] Comment on above: Performed By: #### H GIFTY, HFP #### [facility] (DEFAULT) [address] [place] [address] Bilirubin.indirect [Mass/Vol] 0.2 mg/dL Normal <0.3 [facility] Comment on above: Performed By: #### H GIFTY, HFP #### [facility] (DEFAULT) [address] [place] [address] Protein [Mass/Vol] 7.5 g/dL Normal 6.4-8.3 [facility] Comment on above: Performed By: #### H GIFTY, HFP #### [facility] (DEFAULT) [address] [place] [address] LIPID PANEL W CALCULATED LDL on 04-25-2024 Calculated LDL Cholesterol 119 mg/dL High 0-99 [facility] Comment on above: Result Comment: [<10 0 mg/dL: Optimal] [100-129 mg/dL: Near Optimal] [130-159 mg/dL: Borderline High] [160-189 mg/dL: High] [>189 mg/dL: Very High] Performed By: #### H GIFTY, HFP #### [facility] (DEFAULT) [address] [place] [address] Cholesterol [Mass/Vol] 192 mg/dL Normal <200 [facility] Comment on above: Result Comment: [<20 0 mg/dL: Desirable] [200-239 mg/dL: Borderline High] [>239 mg/dL: High] Performed By: #### H GIFTY, HFP #### [facility] (DEFAULT) [address] [place] [address] Cholesterol in HDL [Mass/Vol] 57 mg/dL Normal >=40 [facility] Comment on above: Result Comment: [<40 mg/dL: Low (High Risk)] [>59 mg/dL: High (Low Risk)] Performed By: #### H GIFTY, HFP #### [facility] (DEFAULT) [address] [place] [address] Non HDL Cholesterol 135 mg/dL High <130 [facility] Comment on above: Performed By: #### H GIFTY, HFP #### [facility] (DEFAULT) [address] [place] [address] Total Cholesterol/HDL Ratio 3.4 Normal <4.5 [facility] Comment on above: Performed By: #### H GIFTY, HFP #### [facility] (DEFAULT) [address] [place] [address] Triglyceride [Mass/Vol] 78 mg/dL Normal <150 [facility] Comment on above: Result Comment: [<15 0 mg/dL: Desirable] [150-199 mg/dL: Borderline] [200-499 mg/dL: High] [>500 mg/dL: Very High] Performed By: #### H GIFYT, HFP #### [facility] (DEFAULT) [address] [place] [address] HEPATIC FUNCTION PANELon Albumin [Mass/Vol] 4.5 g/dL Normal 3.5-5.0 [facility] Comment on above: Performed By: #### H GIFTY, HFP #### [facility] (DEFAULT) [address] [place] [address] ALP [Catalytic activity/Vol] 72 U/L Normal 32-126 [facility] Comment on above: Performed By: #### H GIFTY, HFP #### [facility] (DEFAULT) [address] [place] [address] ALT [Catalytic activity/Vol] 16 U/L Normal 9-48 [facility] Comment on above: Performed By: #### H GIFTY, HFP #### [facility] (DEFAULT) [address] [place] [address] AST [Catalytic activity/Vol] 18 U/L Normal 10-39 [facility] Comment on above: Performed By: #### H GIFTY, HFP #### [facility] (DEFAULT) [address] [place] [address] Bilirubin [Mass/Vol] 0.6 mg/dL Normal <1.5 [facility] Comment on above: Performed By: #### H GIFTY, HFP #### [facility] (DEFAULT) [address] [address] Bilirubin.indirect [Mass/Vol] 0.2 mg/dL Normal <0.3 [facility] Comment on above: Performed By: #### H GIFTY, HFP #### [facility] (DEFAULT) [address] [place] [address] Protein [Mass/Vol] 7.2 g/dL Normal 6.4-8.3 [facility] Comment on above: Performed By: #### H GIFTY, HFP #### [facility] (DEFAULT) [address] [place] [address] LIPID PANEL W CALCULATED LDL on 01-24-2024 Calculated LDL Cholesterol 101 mg/dL High 0-99 [facility] Comment on above: Result Comment: [<10 0 mg/dL: Optimal] [100-129 mg/dL: Near Optimal] [130-159 mg/dL: Borderline High] [160-189 mg/dL: High] [>189 mg/dL: Very High] Performed By: #### H GIFTY, HFP #### [facility] (DEFAULT) [address] [place] [address] Cholesterol [Mass/Vol] 184 mg/dL Normal <200 [facility] Comment on above: Result Comment: [<20 0 mg/dL: Desirable] [200-239 mg/dL: Borderline High] [>239 mg/dL: High] Performed By: #### H GIFTY, HFP #### [facility] (DEFAULT) [address] [place] [address] Cholesterol in HDL [Mass/Vol] 70 mg/dL High 35-65 [facility] Comment on above: Result Comment: [<40 mg/dL: Low (High Risk)] [>59 mg/dL: High (Low Risk)] Performed By: #### H GIFTY, HFP #### [facility] (DEFAULT) [address] [place] [address] Non HDL Cholesterol 114 mg/dL Normal <130 [facility] Comment on above: Performed By: #### H GIFTY, HFP #### [facility] (DEFAULT) [address] [place] [address] Total Cholesterol/HDL Ratio 2.6 Normal <4.5 [facility] Comment on above: Performed By: #### H GIFTY, HFP #### [facility] (DEFAULT) [address] [place] [address] Triglyceride [Mass/Vol] 63 mg/dL Normal 37-140 [facility] Comment on above: Result Comment: [<15 0 mg/dL: Desirable] [150-199 mg/dL: Borderline] [200-499 mg/dL: High] [>500 mg/dL: Very High] Performed By: #### H GIFTY, HFP #### [facility] (DEFAULT) [address] [place] [address] CBC panel Auto (Bld)on 08-08 Erythrocyte distribution width (RBC) [Ratio] 12.9 % 11.5 - 15.0 % [facility] Hematocrit (Bld) [Volume fraction] 40.4 % 36.0 - 46.0 % [facility] Hemoglobin (Bld) [Mass/Vol] 13.4 g/dL 11.5 - 15.5 g/dL [facility] Interpretation and review of laboratory results Normal [facility] MCH (RBC) [Entitic mass] 29.5 pg 26.0 - 34.0 pg [facility] MCHC (RBC) [Mass/Vol] 33.2 g/dL 30.5 - 36.0 g/dL [facility] MCV (RBC) [Entitic vol] 88.8 fL 80.0 - 100.0 fL [facility] Nucleated RBC (Bld) [#/Vol] NINF [facility] Platelet mean volume (Bld) [Entitic vol] 9.6 fL 9.0 - 12.7 fL [facility] Platelets (Bld) [#/Vol] 264 10*3/uL [facility] RBC (Bld) [#/Vol] 4.55 10*6/uL 3.90 - 5.2 0 m/uL [facility] WBC (Bld) [#/Vol] 5.80 10*3/uL [facility] No Panel Informationon 08-08 Interpretation and review of laboratory results Normal [facility] T4 FREE/FREE THYROXINEon Free T4 [Mass/Vol] 1.3 ng/dL 0.9 - 1.7 ng/dL [facility] THYROID STIMULATING HORMONEo n 08-09-2023 TSH Qn 1.740 m[IU]/L [facility] Comment on above: If the patient is pr egnant, TSH reference range varies by gestational period: First Trimester (weeks 9-12): 0.180-2.990 mIU/L Second Trimester: 0.110-3.980 mIU/L Third Trimester: 0.480-4.710 mIU/L Cordell Wing et al. A Practical Approach for the Verifications and Determination of Site- and Trimester-Specific Reference Intervals for Thyroid Function tests in . Thyroid, 2019:29:3:412-420. Jose J E, et al. 2017 Guidelines of the [place] Thyroid Association for the Diagnosis and Management of Thyroid Disease during and the . Thyroid, 2017:27:3:315-389. Reference ranges were not locally established for this patient's age group. The normal values are based on the following source: Lg W, Eddie Gandhi. Reference Ranges for Adults and Children: Pre-analytical Considerations. [facility] POCT URINE DIPSTICK AUTOMATE DOrdered By: Nehemiah Bernstein on 04-25-2023 Amorphous sediment LM Ql (Urine sed) [facility] Appearance (U) cloudy [facility] Bacteria LM Ql (Urine sed) [facility] Bilirubin Ql (U) Negative [facility] Casts LM.LPF (Urine sed) [#/Area] [facility] Color (U) yellow [facility] Crystals LM Nom (Urine sed) [facility] Epithelial cells.squamous LM.HPF (Urine sed) [#/Area] [facility] Flow cytometry specialist review Ruiz (Unsp spec) [Interp] [facility] Glucose Auto test strip (U) [Mass/Vol] Negative mg/dL [facility] Interpretation and review of laboratory results Abnormal [facility] Ketones [Mass/Vol] Negative mg/dL [facility] Leukocyte esterase Qn (U) [facility] Leukocyte esterase Test strip Ql (U) 3+ [facility] Microscopic observation Gram stain Nom (Bronch spec) [facility] Nitrite Ql (U) Negative [facility] pH (U) 6.0 [pH] 5 - [address] [facility] Protein Ql (U) trace mg/dL [facility] RBC LM.HPF (Urine sed) [#/Area] [facility] RBC Ql (U) 3+ [facility] Specific gravity (U) [Rel density] 1.025 1.001 - 1.035 [facility] Transitional cells LM Ql (Urine sed) [facility] Urobilinogen Qn (U) Negative [facility] WBC LM.HPF (Urine sed) [#/Area] [facility] Inital Evaluation (1) - PTon 11-26-2021 Inital Evaluation (1) - PT [facility] [address] [place] [address] [address] [place] [address] / REHABILITATION SERVICES INITIAL EVALUATION MR#: [id number] Acct: [id number] Name: KATELYNN BAUER Rep #: [id number] : 2005 16 From: Janet HOOVERT Referring Dr.: Dr. Fay Calderon MD Status: REG R Insurance: [facility] [employer]Y INSURANCE Patient's Visit Information KATELYNN BAUER is a 16 year old F referred to Physical Therapy by Dr. Fay Calderon MD with a diagnosis of . Date of Evaluation: 11/26/21 Physical Therapist: Janet Gaytan DPT - Visit Plan Plan: Patient has no deficit at this time, return to sport with MD approval - Subjective Last she had a game- both calves tighteend up- right calf had a really bad cramp- had to be subbed out- didn't play the rest of the game- had to be driven home- the next two days she had issues with stairs, pushing off- 3-4 days later she started to feel better. Yesterday and today she had no pain. Has not played soccer. Last night she ran two miles- on the street- and ran sprints in the driveway and felt good. Went to see eyelet maker who told her she can't play until Janice. Last time she had pain was Tuesday- the pain is located in the lower calf. But she also had fever and sore throat during all of this- dizziness for the game. She plays a lot without rest. She is use to turf- and it was a grass field. Play tonight on turf field. She saw ATC-who told her to see what PT said- stim and rolled it out. No orthotics in your shoes. - Objective Posture: good throughout. Gait: running and walking no deviation noted. Agility, Jumping single and double limb: no noted asymmetries. SLS: 30 sec without LOB. Eccentric and concentric HR/TR: able without pain. Palpation: no pain. ROM: WFL. Strength: 5/5 throughout. Flex: Gastroc: moderate, Soleus: moderate - Rehabilitation Potential Rehabilitation Potential: Good - Anticipated Interventions Thank you for the opportunity to evaluate your patient. For Medicare and Medicare HMO plans, please review the plan of care and approve it. It will need to be FAXED BACK to us at [phone] for Medicare purposes. For Medicare only, by signing this I certify the plan of care. Please let me know if there are questions or concerns regarding this plan of care. Physician Signature: D ate: 11/26/21 1458 CC: Dr. Fay Calderon MD ELR Signed Normal [facility] XR Knee - right 4 Viewson IMPRESSION: Normal radiographic appearance of the right knee. Security Patrol Driver: PSC[employer] Transcribe Date/Time: Sep 25 2021 7:58A Dictated by : ANU OLSEN MD This examination was interpreted and the report reviewed and electronically signed by: ANU OLSEN MD on Sep 25 2021 7:59AM EST JOHN_DO_NOT_USE _DIVISION OF RADIOLOGY * * *Final Report* * * DATE OF EXAM: Sep 24 2021 5:30PM WOX 5203 - XR KNEE 4V AP/PA BOTH+LAT/NIRALI RT / PROCEDURE REASON: Acute pain of right knee * * * * Physician Interpretation * * * * TECHNIQUE: XR KNEE 4V AP/PA BOTH+LAT/NIRALI RT - EXAM DATE: 09/24/2021 5:30 PM CLINICAL HISTORY: Acute pain of right knee COMPARISON: None RESULT: There is no fracture. Bone density is normal. Joint spaces are maintained. No suprapatellar joint effusion. ZZZ_DO_NOT_USE _DIVISION OF RADIOLOGY Provider, [facility] [place] - 09/25/2021 * * *Final Report* * * DATE OF EXAM: Sep 24 2021 5:30PM WOX [id number] - XR KNEE 4V AP/PA BOTH+LAT/NIRALI RT / PROCEDURE REASON: Acute pain of right knee * * * * Physician Interpretation * * * * TECHNIQUE: XR KNEE 4V AP/PA BOTH+LAT/NIRALI RT - EXAM DATE: 09/24/2021 5:30 PM CLINICAL HISTORY: Acute pain of right knee COMPARISON: None RESULT: There is no fracture. Bone density is normal. Joint spaces are maintained. No suprapatellar joint effusion. IMPRESSION IMPRESSION: Normal radiographic appearance of the right knee. Security Patrol Driver: [facility] Transcribe Date/Time: Sep 25 2021 7:58A Dictated by : ANU OLSEN MD This examination was interpreted and the report reviewed and electronically signed by: ANU OLSEN MD on Sep 25 2021 7:59AM EST [facility] XR Knee - right 4 ViewsOrder ed By: [facility] Provider on 09-25-2021 [facility] XR KNEE GENERAL 4V AP BOTH/P A BOTH/LAT/MERC RIGHTon 09-24-2021 [facility] XR Knee - right 4 Viewson Radiology Study observation (narrative) [facility] Progress Noteon 08-12-2020 Medical Imaging Tech Authentication Interface Message Text Katelynn Bauer is here for follow up at the request of Fay Calderon MD for: ABD pain - ? Gluten Sensitivity/Intolera nce > Celiac ---History from parent and patient ---Last seen Nov 2018 History of Present Illness This is not a consultation. She is accompanied by her mother. No electronic repair troubleshooter was used. ABD pain - No issues - better when being gluten free Stooling - Normal ---No diarrhea ---NO blood ---No waking at night UO - Normal N/V - No vomiting; nausea massively improved Dysphagia - None Appetite - Feels hungry, not avoiding eating - eating better over time ---Mainly Gluten free ---but may get co Growth - No weight loss, per patient Activity - Doing ok Mesntrual - Normal Cycles ---but on OCP for regulation Rashes - None Mouth - no recurrent sores Fevers - no issues Joints - no swelling ---but may have intermittent pain, depending on activity Currently - Overall 100% better since being off Gluten, but patient has had some obvious cross-contamination, and has not had increased symtpoms Past Medical History Past Medical History: Diagnosis Date Migraine Vasovagal syncope Past Surgical History Past Surgical History: Procedure Laterality Date TONSILLECTOMY AND ADENOIDECTOMY UPPER GASTROINTESTINAL ENDOSCOPY N/A 07/18/2018 ENDOSCOPY UPPER (FLEXIBLE) with biopsies performed by Stephania Oro MD at [facility] OR Allergies No Known Allergies Medications Outpatient Encounter Medications as of 08/12/2020 Medication Sig Dispense Refill Fexofenadine-Pseudoe phedrine (ANIA-D 24 HOUR PO) Take by mouth Probiotic Product (PROBIOTIC DAILY PO) Take by mouth daily desogestrel-ethinyl estradiol (APRI) 0.15-30 MG-MCG per tablet Take 1 Tab by mouth cetirizine (ZYRTEC) 10 MG tablet Take by mouth daily as needed (Patient not taking: Reported on 08/12/2020) omeprazole (PRILOSEC) 40 MG capsule Take 1 Cap (40 mg) by mouth daily (Patient not taking: Reported on 12/05/2018) 30 Cap 3 ondansetron (ZOFRAN-ODT) 4 MG disintegrating tablet Take 1 Tab (4 mg) by mouth every 8 hours as needed for Nausea (Patient not taking: Reported on 12/05/2018) 20 Tab 1 Hyoscyamine Sulfate SL 0.[address] 1 Tab under the tongue every 6-8 hours as needed for Pain (Patient not taking: Reported on 12/05/2018) 20 Each 3 No facility-administere d encounter medications on file as of 08/12/2020. Family Medical History Family History Problem Relation Age of Onset No known problems Mother No known problems Father Anesth Problems Neg Hx Bleeding Problem Neg Hx Social History Social History Socioeconomic History Marital status: Single Spouse name: None Number of children: None Years of education: None Highest education level: None Occupational History None Tobacco Use Smoking status: Never Smoker Smokeless tobacco: Never Used Tobacco comment: Pt denies use Substance and Sexual Activity Alcohol use: Never Comment: Pt denies use Drug use: Never Comment: Pt denies use Sexual activity: None Other Topics Concern Behavioral problems Not Asked Interpersonal relationships Not Asked Sad or not enjoying activities Not Asked Suicidal thoughts Not Asked Poor school performance Not Asked Reading difficulties Not Asked Speech difficulties Not Asked Writing difficulties Not Asked Inadequate sleep Not Asked Excessive TV viewing Not Asked Excessive video game use Not Asked Inadequate exercise Not Asked Sports related Not Asked Poor diet Not Asked Poor oral hygiene Not Asked Bike safety Not Asked Vehicle safety Not Asked Social History Narrative None Social Determinants of Health Social determinant risk not applicable to this patient. Diet Current Diet? Gluten Free Patient drinks milk, eats cheese, ice cream? Yes Do dairy products cause problems? No Does patient have dietary restrictions? No Patient on nutritional supplements? No Patient on tube feeds? No Social History Who lives in the household? PARENTS BROTHER Are there pets in the home? Yes 2 DOGS Has patient traveled out of the country? No Water source for child? [facility] Has the patient ever been hospitalized? Yes Alternative meds, herbals, OTC meds and vitamins documented in medication section? Yes Review of Systems Review of Systems Constitutional: Positive for weight gain. Negative for recurrent fevers and weight loss. HENT: Negative for trouble swallowing. Eyes: Negative for wears glasses. Respiratory: Negative for coughing, wheezing and asthma. Cardiovascular: Negative for heart murmur, heart problems and chest pain. Endocrine: Negative for poor growth. Gastrointestinal: Negative for constipation, diarrhea, vomiting, heartburn, blood in stool, trouble swallowing, abdominal pain and nausea. Genitourinary: Negative for dysuria, hematuria and frequent urination. Neurological: Negative for developmental delays and seizures. Musc (more content not included)... Normal [facility] Vital Signs Date Time Vital Sign Value Performing Clinician Facility 09-25-2024 11:36-0400 Body height 174.3 cm Fay Calderon MD Work Phone: [facility] 09-25-2024 11:36-0400 Body mass index (BMI) [Ratio] 24.16 kg/m2 Fay Calderon MD Work Phone: [facility] 09-25-2024 11:36-0400 Body temperature 98.1 [degF] Fay Calderon MD Work Phone: [facility] 09-25-2024 11:36-0400 Body weight 73.39 kg Fay Calderon MD Work Phone: [facility] 09-25-2024 11:36-0400 Diastolic blood pressure 74 mm[Hg] Fay Calderon MD Work Phone: [facility] 09-25-2024 11:36-0400 Heart rate 72 /min Fay Calderon MD Work Phone: [facility] 09-25-2024 11:36-0400 Respiratory rate 16 /min Fay Calderon MD Work Phone: [facility] 09-25-2024 11:36-0400 Systolic blood pressure 110 mm[Hg] Fay Calderon MD Work Phone: [facility] 08-09-2023 10:02-0400 Body height 175.1 cm Fay Calderon MD Work Phone: [facility] 08-09-2023 10:02-0400 Body mass index (BMI) [Ratio] 25.74 kg/m2 Fay Calderon MD Work Phone: [facility] 08-09-2023 10:02-0400 Body temperature 98.29 [degF] Fay Calderon MD Work Phone: [facility] 08-09-2023 10:02-0400 Body weight 78.93 kg Fay Calderon MD Work Phone: [facility] 08-09-2023 10:02-0400 Diastolic blood pressure 66 mm[Hg] Fay Calderon MD Work Phone: [facility] 08-09-2023 10:02-0400 Heart rate 64 /min Fay Calderon MD Work Phone: [facility] 08-09-2023 10:02-0400 Respiratory rate 16 /min Fay Calderon MD Work Phone: [facility] 08-09-2023 10:02-0400 Systolic blood pressure 110 mm[Hg] Fay Calderon MD Work Phone: [facility] 07-04-2023 10:33-0400 Body height 175.3 cm Macario Rollins MD Work Phone: [facility] 07-04-2023 10:33-0400 Body mass index (BMI) [Ratio] 24.37 kg/m2 Macario Rollins MD Work Phone: [facility] 07-04-2023 10:33-0400 Body temperature 97.7 [degF] Macario Rollins MD Work Phone: [facility] 07-04-2023 10:33-0400 Body weight 74.84 kg Macario Rollins MD Work Phone: [facility] 07-04-2023 10:33-0400 Diastolic blood pressure 84 mm[Hg] Macario Rollins MD Work Phone: [facility] 07-04-2023 10:33-0400 Heart rate 77 /min Macario Rollins MD Work Phone: [facility] 07-04-2023 10:33-0400 Respiratory rate 16 /min Macario Rollins MD Work Phone: [facility] 07-04-2023 10:33-0400 SaO2% (BldA) [Mass fraction] 98 % Macario Rollins MD Work Phone: [facility] 07-04-2023 10:33-0400 Systolic blood pressure 118 mm[Hg] Macario Rollins MD Work Phone: [facility] 04-25-2023 13:33-0500 Body mass index (BMI) [Ratio] 25.25 kg/m2 Jailene San 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 Work Phone: [facility] 04-25-2023 13:33-0500 Body temperature 98.29 [degF] Jailene San 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 Work Phone: [facility] 04-25-2023 13:33-0500 Body weight 77.56 kg Jailene San 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 Work Phone: [facility] 04-25-2023 13:33-0500 Diastolic blood pressure 76 mm[Hg] Jailene San 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 Work Phone: [facility] 04-25-2023 13:33-0500 Heart rate 84 /min Jailene San 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 Work Phone: [facility] 04-25-2023 13:33-0500 Respiratory rate 18 /min Jailene San 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 Work Phone: [facility] 04-25-2023 13:33-0500 Systolic blood pressure 128 mm[Hg] Jailene San 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 Work Phone: [facility] 01-07-2023 09:54-0400 Body temperature 97.2 [degF] Jes Chiang 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 Work Phone: [facility] 01-07-2023 09:54-0400 Body weight 75.34 kg Jes Chiang 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 Work Phone: [facility] 01-07-2023 09:54-0400 Diastolic blood pressure 80 mm[Hg] Jes Chiang 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 Work Phone: [facility] 01-07-2023 09:54-0400 Heart rate 83 /min Jes Chiang 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 Work Phone: [facility] 01-07-2023 09:54-0400 Respiratory rate 16 /min Jescamille Chiang 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 Work Phone: [facility] 01-07-2023 09:54-0400 SaO2% (BldA) [Mass fraction] 98 % Jescamille Chiang 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 Work Phone: [facility] 01-07-2023 09:54-0400 Systolic blood pressure 128 mm[Hg] Jescamille Chiang 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 Work Phone: [facility] 12-20-2022 09:34-0400 Body temperature 97.2 [degF] Jailene San 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 Work Phone: [facility] 12-20-2022 09:34-0400 Body weight 75.57 kg Jailene San 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 Work Phone: [facility] 12-20-2022 09:34-0400 Diastolic blood pressure 88 mm[Hg] Jailene San 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 Work Phone: [facility] 12-20-2022 09:34-0400 Heart rate 107 /min Jailene San 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 Work Phone: [facility] 12-20-2022 09:34-0400 Respiratory rate 18 /min Jailene San 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 Work Phone: [facility] 12-20-2022 09:34-0400 SaO2% (BldA) [Mass fraction] 97 % Jailene San 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 Work Phone: [facility] 12-20-2022 09:34-0400 Systolic blood pressure 128 mm[Hg] Jailene San 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 Work Phone: [facility] 06-07-2022 13:32-0400 Body height 174.3 cm Fay Calderon MD Work Phone: [facility] 06-07-2022 13:32-0400 Body mass index (BMI) [Percentile] Per age and sex 82.5 % Fay Calderon MD Work Phone: [facility] 06-07-2022 13:32-0400 Body temperature 99.1 [degF] Fay Calderon MD Work Phone: [facility] 06-07-2022 13:32-0400 Body weight 76.57 kg Fay Calderon MD Work Phone: [facility] 06-07-2022 13:32-0400 Diastolic blood pressure 80 mm[Hg] Fay Calderon MD Work Phone: [facility] 06-07-2022 13:32-0400 Heart rate 80 /min Fay Calderon MD Work Phone: [facility] 06-07-2022 13:32-0400 Respiratory rate 16 /min Fay Calderon MD Work Phone: [facility] 06-07-2022 13:32-0400 Systolic blood pressure 120 mm[Hg] Fay Calderon MD Work Phone: [facility] 03-29-2022 15:36-0500 Body weight 76.52 kg Taylor Márquez MD Work Phone: [facility] 03-29-2022 15:36-0500 Diastolic blood pressure 60 mm[Hg] Taylor Márquez MD Work Phone: [facility] 03-29-2022 15:36-0500 Systolic blood pressure 130 mm[Hg] Taylor Márquez MD Work Phone: [facility] 12-13-2021 12:28-0400 Body temperature 98.01 [degF] Rika Huggins PA-C Work Phone: [facility] 12-13-2021 12:28-0400 Body weight 75.39 kg Rika Huggins PA-C Work Phone: [facility] 12-13-2021 12:28-0400 Diastolic blood pressure 64 mm[Hg] Rika Athy PA-C Work Phone: [facility] 12-13-2021 12:28-0400 Heart rate 66 /min Rika Athy PA-C Work Phone: [facility] 12-13-2021 12:28-0400 Respiratory rate 16 /min Rika Athy PA-C Work Phone: [facility] 12-13-2021 12:28-0400 SaO2% (BldA) [Mass fraction] 98 % Rika Athy PA-C Work Phone: [facility] 12-13-2021 12:28-0400 Systolic blood pressure 116 mm[Hg] Rika Athy PA-C Work Phone: [facility] 11-23-2021 18:00-0400 Body temperature 98.1 [degF] Fay Calderon MD Work Phone: [facility] 11-23-2021 18:00-0400 Body weight 76.75 kg Fay Calderon MD Work Phone: [facility] 11-23-2021 18:00-0400 Diastolic blood pressure 68 mm[Hg] Fay Calderon MD Work Phone: [facility] 11-23-2021 18:00-0400 Heart rate 68 /min Fay Calderon MD Work Phone: [facility] 11-23-2021 18:00-0400 Respiratory rate 16 /min Fay Calderon MD Work Phone: [facility] 11-23-2021 18:00-0400 Systolic blood pressure 108 mm[Hg] Fay Calderon MD Work Phone: [facility] 10-19-2021 13:22-0400 Body temperature 98.2 [degF] Fay Calderon MD Work Phone: [facility] 10-19-2021 13:22-0400 Body weight 77.11 kg Fay Calderon MD Work Phone: [facility] 10-19-2021 13:22-0400 Diastolic blood pressure 56 mm[Hg] Fay Calderon MD Work Phone: [facility] 10-19-2021 13:22-0400 Heart rate 80 /min Fay Calderon MD Work Phone: [facility] 10-19-2021 13:22-0400 Respiratory rate 16 /min Fay Calderon MD Work Phone: [facility] 10-19-2021 13:22-0400 Systolic blood pressure 120 mm[Hg] Fay Calderon MD Work Phone: [facility] 09-24-2021 16:34-0400 Body temperature 97.2 [degF] Matt Liang MD Work Phone: [facility] 09-24-2021 16:34-0400 Body weight 76.3 kg Matt Liang MD Work Phone: [facility] 09-24-2021 16:34-0400 Heart rate 68 /min Matt Liang MD Work Phone: [facility] 09-24-2021 16:34-0400 Respiratory rate 16 /min Matt Liang MD Work Phone: [facility] 07-09-2021 19:15-0400 Body temperature 97.59 [degF] Wilfredo Chung 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 Work Phone: [facility] 07-09-2021 19:15-0400 Body weight 70.85 kg Wilfredojacqui Chung 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 Work Phone: [facility] 07-09-2021 19:15-0400 Diastolic blood pressure 68 mm[Hg] Wilfredo Sheldon 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 Work Phone: [facility] 07-09-2021 19:15-0400 Heart rate 66 /min Wilfredo Sheldon 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 Work Phone: [facility] 07-09-2021 19:15-0400 Respiratory rate 14 /min Wilfredo 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 Work Phone: [facility] 07-09-2021 19:15-0400 SaO2% (BldA) [Mass fraction] 100 % Wilfredo Chung MATT.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 Work Phone: [facility] 07-09-2021 19:15-0400 Systolic blood pressure 122 mm[Hg] Wilfredo Chung [employer]ATT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 Work Phone: [facility] Encounters Encounter Date Encounter Type Care Provider Facility Start: 10-28-2024 End: 10-29-2024 ambulatory Fay Calderon MD Work Phone: [facility] Comment on above: Study abroad medicat ion Start: 10-19-2024 End: 10-19-2024 ambulatory FAY CALDERON Facility:[facility] Start: 10-11-2024 End: 10-11-2024 Refill Fay Calderon MD Work Phone: [facility] Comment on above: Refill Request Start: 09-27-2024 End: 10-04-2024 Follow-up encounter Fay Calderon MD Work Phone: [facility] Start: 09-25-2024 End: 09-25-2024 ambulatory FAY CALDERON Facility:[facility] Start: 09-25-2024 End: 09-25-2024 Patient encounter procedure Fay Calderon MD Work Phone: [facility] Comment on above: Routine screening fo r STI (sexually transmitted infection) (Primary Dx); Ongoing accutane therapy; Attention deficit hyperactivity disorder (ADHD), predominantly inattentive type; Screening, iron deficiency anemia; Encounter for routine child health examination without abnormal findings Start: 09-25-2024 End: 09-25-2024 Patient encounter status Fay Calderon MD Work Phone: [facility] Start: 07-05-2024 End: 07-05-2024 ambulatory Fay Calderon MD Work Phone: [facility] Start: 05-14-2024 End: 05-14-2024 Refill Fay Calderon MD Work Phone: [facility] Comment on above: Refill Request Start: 05-06-2024 End: 05-17-2024 Refill Fay Calderon MD Work Phone: [facility] Comment on above: Refill Request Start: 04-25-2024 End: 04-25-2024 Clinical Support Encounter [facility] Lab Nurse [place] Work Phone: [facility] [place] Comment on above: Acne vulgaris; Disease of lips; Xerosis cutis; 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 Start: 04-25-2024 ambulatory SELF SELF Facility:[facility] Start: 02-14-2024 End: 02-14-2024 Refill Fay Calderon MD Work Phone: [facility] Comment on above: Refill Request Start: 01-24-2024 End: 01-24-2024 Clinical Support Encounter [facility] Nurse [place] Work Phone: [facility] [place] Comment on above: Acne vulgaris Generalized anxiety disorder (Primary Dx); Attention deficit hyperactivity disorder, combined type Start: 01-24-2024 [facility] Start: 01-17-2024 End: 01-17-2024 Clinical Support Encounter [facility] Injection Nurse [place] Work Phone: [facility] [place] Comment on above: Need for immunizatio n against influenza (Primary Dx) Start: 01-17-2024 ambulatory SELF SELF Facility:[facility] Start: 01-09-2024 End: 01-09-2024 Refill Fay Calderon MD Work Phone: [facility] Comment on above: Refill Request Start: 11-28-2023 End: 11-28-2023 Refill Fay Calderon MD Work Phone: [facility] Comment on above: Refill Request Start: 10-20-2023 Refill Fay garcía MD Work Phone: [facility] Comment on above: Refill Request Start: 09-27-2023 Refill Fay garcía MD Work Phone: [facility] Comment on above: Refill Request Start: 08-09-2023 End: 08-09-2023 Patient encounter procedure Fay Calderon MD Work Phone: [facility] Comment on above: Weight gain (Primary Dx); Encounter for immunization; Attention deficit hyperactivity disorder (ADHD), unspecified ADHD type; Encounter for well child examination without abnormal findings Start: 08-09-2023 End: 08-09-2023 Patient encounter status Fay Calderon MD Work Phone: [facility] Start: 07-04-2023 ambulatory JAILENE SAN Fa cility:[facility] Start: 07-04-2023 End: 07-04-2023 Office outpatient visit 15 minutes Jailene San 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 Work Phone: [facility] [place] Comment on above: Allergic eye reactio n (Primary Dx) Start: 06-23-2023 Refill Fay garcía MD Work Phone: [facility] Comment on above: Refill Request Start: 05-16-2023 Refill Fay garcía MD Work Phone: [facility] Comment on above: Refill Request Start: 04-25-2023 End: 04-25-2023 Office outpatient visit 15 minutes Jailene San 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 Work Phone: [facility] [place] Comment on above: Acute cystitis witho ut hematuria (Primary Dx); Urinary frequency; Dysuria; History of candidiasis of vagina Start: 02-06-2023 ambulatory Arianne SIN RN.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 Work Phone: OB/Gynecology Comment on above: pharmacy switch Start: 01-23-2023 Refill Fay garcía MD Work Phone: [facility] [place] Comment on above: Refill Request Start: 01-07-2023 End: 01-07-2023 Office outpatient visit 15 minutes Jes Chiang 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 Work Phone: [facility] [place] Comment on above: Dysfunction of right eustachian tube (Primary Dx); Left flank pain Start: 12-28-2022 Refill Fay garcía MD Work Phone: [facility] [place] Start: 12-20-2022 End: 12-20-2022 Office outpatient new 30 minutes Jailene LIVE Work Phone: [facility] [place] Comment on above: Acute upper respirat ory infection (Primary Dx) Start: 12-13-2022 End: 12-13-2022 ambulatory Casandra Arellano PA-C Work Phone: [facility] [place] Comment on above: Viral syndrome (Prim kenny Dx) Start: 12-13-2022 End: 12-13-2022 Telemedicine consultation with patient Casandra Arellano PA-C Work Phone: [facility] Start: 06-22-2022 ambulatory No Pcp (Hist) Referring Physician Start: 06-07-2022 End: 06-07-2022 Patient encounter procedure Fay Calderon MD Work Phone: [facility] [place] Comment on above: Encounter for well c hild examination without abnormal findings (Primary Dx); Encounter for immunization; Foot pain, bilateral; Attention deficit hyperactivity disorder (ADHD), unspecified ADHD type Start: 06-07-2022 End: 06-07-2022 Patient encounter status Fay Calderon MD Work Phone: [facility] [place] Start: 03-29-2022 End: 03-29-2022 Patient encounter procedure Taylor Márquez MD Work Phone: OB/Gynecology Comment on above: Encounter for IUD in sertion (Primary Dx); Encounter for surveillance of contraceptive pills Start: 03-23-2022 End: 03-23-2022 ambulatory Noreen Mendoza MD Work Phone: Allergy Comment on above: Seasonal allergic rh initis due to pollen (Primary Dx); Allergic rhinitis due to animal hair and dander; Allergic rhinitis caused by mold Start: 03-23-2022 End: 03-23-2022 Telemedicine consultation with patient Noreen Mendoza MD Work Phone: [facility] Start: 03-18-2022 End: 03-18-2022 Patient encounter procedure [facility] Nurse Wstr Work Phone: [facility] [place] Comment on above: Seasonal allergic rh initis due to other allergic trigger (Primary Dx) Start: 03-03-2022 End: 03-03-2022 Patient encounter procedure [facility] Nurse Wstr Work Phone: [facility] [place] Comment on above: Seasonal allergic rh initis due to pollen (Primary Dx) Start: 02-18-2022 End: 02-18-2022 Patient encounter procedure [facility] Nurse Wstr Work Phone: [facility] [place] Comment on above: Seasonal allergic rh initis due to other allergic trigger (Primary Dx) Start: 02-11-2022 ambulatory Fay garcía MD Work Phone: [facility] [place] Comment on above: Adderall Refill Request Start: 01-27-2022 Refill Fay garcía MD Work Phone: [facility] [place] Comment on above: Refill Request Start: 01-14-2022 End: 01-14-2022 Patient encounter procedure [facility] Nurse Wstr Work Phone: [facility] [place] Comment on above: Seasonal allergic rh initis due to other allergic trigger (Primary Dx) Start: 01-13-2022 ambulatory Noreen Mendoza MD Work Phone: Allergy Comment on above: New vial Start: 12-17-2021 Refill Fay garcía MD Work Phone: [facility] [place] Start: 12-13-2021 End: 12-13-2021 Patient encounter procedure Rika Huggins PA-C Work Phone: [facility] Comment on above: Suspected COVID-19 v irus infection (Primary Dx) Start: 12-10-2021 Telephone encounter Noreen hassan MD Work Phone: Allergy Comment on above: Future Appointment Start: 12-09-2021 End: 12-09-2021 Patient encounter procedure [facility] Nurse Wstr Work Phone: [facility] [place] Comment on above: Seasonal allergic rh initis due to pollen (Primary Dx) Start: 12-07-2021 Refill Fay garcía MD Work Phone: [facility] [place] Comment on above: Refill Request Start: 11-26-2021 End: 11-26-2021 ambulatory Fay Calderon Facility:[facility] Start: 11-26-2021 End: 11-26-2021 ambulatory [facility] Work Phone: Start: 11-26-2021 End: 11-26-2021 Discharged Recurring [facility] Start: 11-26-2021 Telephone encounter Fay mcmillan MD Work Phone: [facility] [place] Comment on above: Question Start: 11-24-2021 ambulatory Noreen Mendoza MD Work Phone: Allergy Comment on above: Allergy Shots Start: 11-23-2021 End: 11-23-2021 Patient encounter procedure Fay Calderon MD Work Phone: [facility] [place] Comment on above: Strain of right calf muscle (Primary Dx) Start: 11-21-2021 ambulatory Fay garcía MD Work Phone: [facility] [place] Comment on above: Leg Pain Start: 11-18-2021 End: 11-18-2021 Patient encounter procedure [place] Nurse Wstr Work Phone: [facility] [place] Comment on above: Seasonal allergic rh initis due to other allergic trigger (Primary Dx) Start: 11-04-2021 End: 11-04-2021 Patient encounter procedure [place] Nurse Wstr Work Phone: [facility] [place] Comment on above: Chronic seasonal all ergic rhinitis due to pollen (Primary Dx) Start: 10-19-2021 End: 10-19-2021 Patient encounter procedure Fay Calderon MD Work Phone: [facility] [place] Comment on above: Attention deficit hy peractivity disorder (ADHD), unspecified ADHD type (Primary Dx) Start: 10-15-2021 End: 10-15-2021 Refill Arianne Stevens APRN.CNP Work Phone: OB/Gynecology Comment on above: Refill Request Chronic seasonal all ergic rhinitis due to pollen (Primary Dx) Start: 10-08-2021 End: 10-08-2021 Patient encounter procedure [facility] Nurse Wstr Work Phone: [facility] [place] Comment on above: Non-seasonal allergi c rhinitis due to other allergic trigger (Primary Dx) Start: 09-24-2021 End: 09-24-2021 Subsequent hospital visit by physician [facility] [place] Work Phone: Radiology Comment on above: Acute pain of right knee [M25.561] Start: 09-24-2021 End: 09-24-2021 Patient encounter procedure Matt Liang MD Work Phone: [facility] [place] Comment on above: Acute pain of right knee (Primary Dx) Start: 09-23-2021 End: 09-23-2021 Patient encounter procedure [facility] Nurse Wstr Work Phone: [facility] [place] Comment on above: Seasonal allergic rh initis due to pollen (Primary Dx) Start: 09-17-2021 End: 09-17-2021 Patient encounter procedure [facility] Nurse Wstr Work Phone: [facility] [place] Comment on above: Seasonal allergic rh initis due to pollen (Primary Dx) Start: 09-10-2021 End: 09-10-2021 Patient encounter procedure [facility] Nurse Wstr Work Phone: [facility] [place] Comment on above: Seasonal allergic rh initis due to pollen (Primary Dx) Start: 09-02-2021 End: 09-02-2021 Patient encounter procedure [facility] Nurse Wstr Work Phone: [facility] [place] Comment on above: Chronic seasonal all ergic rhinitis due to pollen (Primary Dx) Start: 08-05-2021 End: 08-05-2021 Patient encounter procedure [facility] Nurse Wstr Work Phone: [facility] [place] Comment on above: Seasonal allergic rh initis due to pollen (Primary Dx) Start: 07-20-2021 Refill Fay garcía MD Work Phone: [facility] [place] Comment on above: Refill Request Start: 07-09-2021 End: 07-09-2021 Patient encounter procedure Wilfredo Chung [employer].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 Work Phone: [facility] Comment on above: Acute paronychia of finger of left hand (Primary Dx) Start: 07-08-2021 End: 07-08-2021 Patient encounter procedure [facility] Nurse Wstr Work Phone: Family [facility] [place] Comment on above: Seasonal allergic rh initis due to pollen (Primary Dx) Start: 07-01-2021 End: 07-01-2021 Patient encounter procedure [facility] Nurse Wstr Work Phone: [facility] [place] Comment on above: Seasonal allergic rh initis due to pollen (Primary Dx) Procedures Date Procedure Procedure Detail Performing Clinician Start: 09-25-2024 Adult depression scr eening assessment Fay Calderon MD Work Phone: Start: 08-09-2023 MENINGOCOCCAL B VACC INE (BEXSERO) Fay Calderon MD Work Phone: Start: 08-09-2023 Adult depression scr eening assessment Fay Calderon MD Work Phone: Start: 04-25-2023 Urnls dip stick/tabl et rgnt auto w/o microscopy Jailene San 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 Work Phone: Start: 06-07-2022 MENINGOCOCCAL B VACC INE (BEXSERO) Fay Calderon MD Work Phone: Start: 10-19-2021 Adult depression scr eening assessment Fay Calderon MD Work Phone: Start: 09-24-2021 Radiologic exam knee complete 4/more views Matt Liang MD Work Phone: Start: 04-03-2021 Adult depression scr eening assessment Fm Wstr Work Phone: Plan of Treatment Date Care Activity Detail Author Start: 10-27-2025 Tetanus vaccination [address]ETANUS [facility] Start: 10-27-2025 Urine microalbumin profile [facility] Start: 09-25-2025 Anxiety Screening Anxiety Screening [facility] Start: 09-25-2025 Depression Screening Depression Scre ening [facility] Start: 09-25-2025 GC (Gonorrhea) Scree karol (18-24) GC (Gonorrhea) Screening (18-) [facility] Start: 09-25-2025 Screening for Chlamy ej trachomatis Chlamydia Screening () [facility] Start: 11-12-2024 Influenza vaccination Influenza Vacc ine (#1) [facility] Start: 11-01-2024 End: 11-01-2024 Patient encounter procedure 11/01/2024 2:30 PM EDT Office Visit Allergy [address] [place] [address] Rosemarie Lawrence DO [address] [place] [address] Dx: History of peanut allergy [Z91.010] Allergy Comment on above: Dx: History of peanu t allergy [Z91.010] Start: 10-22-2024 End: 10-22-2024 ambulatory 10/22/2024 7:30 AM EDT Results Only [facility] [address] [place] [address] [facility] Start: 10-19-2024 End: 10-19-2024 ambulatory 10/19/2024 9:00 AM EDT Results Only [facility] [address] [place] [address] [facility] Start: 09-27-2024 End: 01-11-2025 Hepatic function 2000 panel - Serum or Plasma HEPATIC FUNCTION PNL Lab Routine Elevated liver enzymes Expected: 09/27/2024, Expires: 01/11/2025 [facility] Comment on above: Expected: 09/27/2024 , Expires: 01/11/2025 Start: 09-27-2024 End: 01-11-2025 Lipid 1996 panel - Serum or Plasma LIPID PANEL, FASTING Lab Routine Lipids abnormal Expected: 09/27/2024, Expires: 01/11/2025 [facility] Work Phone: Comment on above: Expected: 09/27/2024 , Expires: 01/11/2025 Start: 09-25-2024 End: 12-25-2024 HIV 1+2 Ab [Presence] in Serum or Plasma by Immunoassay [facility] Work Phone: Comment on above: Expected: 09/25/2024 , Expires: 12/25/2024 Start: 09-25-2024 End: 12-25-2024 SYPHILIS TREPONEMAL W/REFLEX [facility] Comment on above: Expected: 09/25/2024 , Expires: 12/25/2024 Start: 08-14-2024 End: 08-14-2024 Patient encounter procedure 08/14/2024 9:45 AM EDT Office Visit [facility] [address] [place], [place] [id number] Fay Calderon MD [address] [place], [place] [id number] [facility] [place] Comment on above: [facility] Start: 08-08-2024 Anxiety Screening Anxiety Screening [facility] Start: 08-08-2024 Depression Screening Depression Scre ening [facility] Start: 06-26-2024 End: 06-26-2024 ambulatory 06/26/2024 11:00 AM EDT [facility] Outreach [facility] [place] [address] [place], [place] [id number] Fay Calderon MD [address] [place], [place] [id number] [facility] [place] Comment on above: med check Start: 03-23-2024 GC (Gonorrhea) Scree karol (18-24) GC (Gonorrhea) Screening (18-24) [facility] Start: 03-23-2024 Screening for Chlamy ej trachomatis Chlamydia Screening (18-) [facility] Start: 02-14-2024 End: 02-14-2024 Patient encounter procedure 02/14/2024 10:00 AM EST Office Visit [place] [id number] Bacilio Perez LISW [place] [address] [address] [facility] Start: 01-24-2024 End: 01-24-2024 Clinical Support Encounter 01/24/2024 9:00 AM EST Clinical Support Encounter [facility] [address] [place] [id number] [facility] Start: 11-13-2023 COVID-19 VACCINE ( season) COVID-19 VACCINE () [facility] Start: 11-13-2023 Covid-19 Vaccine () Covid-19 Vaccine () [facility] Start: 11-13-2023 Influenza vaccination [facility] Start: 04-25-2023 End: 04-25-2024 Bacteria identified in Urine by Culture [facility] Comment on above: Expected: 04/25/2023 , Expires: 04/25/2024 Start: 03-14-2023 Behavioral Health Screening Behavioral Health Screening [facility] Start: 03-14-2023 Depression Assessment Depression Ass essment [facility] Start: 11-12-2022 COVID-19 VACCINE ( season) COVID-19 VACCINE ( season) [facility] Start: 11-12-2022 Covid-19 Vaccine () Covid-19 Vaccine () [facility] Start: 11-12-2022 Influenza vaccination INFLUENZA VACC INE (#1) [facility] Start: 10-19-2022 Adult depression screening assessment DEPRESSION SCREENING [facility] Start: 07-05-2022 Meningococcal B Vacc ine: Consider Based On Risk (2 of 2 - Risk Bexsero 2-dose series) Meningococcal B Vaccine: Consider Based On Risk (2 of 2 - Risk Bexsero 2-dose series) [facility] Start: 07-05-2022 MENINGOCOCCAL B: Consider based on risk (2 of 2 - Risk Bexsero 2-dose series) MENINGOCOCCAL B: Consider based on risk (2 of 2 - Risk Bexsero 2-dose series) [facility] Start: 04-03-2022 Adult depression screening assessment DEPRESSION SCREENING [facility] Start: 03-14-2022 [facility]MENT [facility] Start: 02-28-2022 Anxiety Screening Anxiety Screening [facility] Start: 02-28-2022 CHLAMYDIA SCREENING (18-24) CHLAMYDIA SCREENING (18-24) [facility] Start: 02-28-2022 Depression Screening Depression Scre ening [facility] Start: 02-28-2022 GC (GONORRHEA) SCREE KAROL (18-24) GC (GONORRHEA) SCREENING (18-24) [facility] Start: 02-28-2022 HEPATITIS C SCREENING HEPATITIS C [facility] Start: 02-28-2022 Hepatitis C screening Hepatitis C [facility] Start: 02-28-2022 HIV SCREENING HIV SCREENING [facility] Start: 02-28-2022 HIV screening HIV Screening [facility] Start: 12-13-2021 End: 12-27-2021 SARS-CoV-2 (COVID-19) RNA [Presence] in Respiratory specimen by KAYE with probe detection [facility] Work Phone: Comment on above: Expected: 12/13/2021 , Expires: 12/27/2021 Start: 11-12-2021 Influenza vaccination INFLUENZA (#1) [facility] Start: 04-20-2021 COVID-19 VACCINE (4 - Booster for Pfizer series) COVID-19 VACCINE (4 - Booster for Pfizer series) [facility] Start: 03-14-2021 DEPRESSION ASSESSMENT [facility] Start: 2020 Screening for Chlamy ej trachomatis CHLAMYDIA SCREEN [facility] Start: 02-28-2019 CHLAMYDIA SCREENING (<18) CHLAMYDIA SCREENING (<18) [facility] Start: 02-28-2019 GC (GONORRHEA) SCREE KAROL (<18) GC (GONORRHEA) SCREENING (<18) [facility] Start: 02-28-2019 HIV screening HIV SCREENING DISCUSSION [facility] Start: 02-28-2018 PEDS TO ADULT TRANSI TION ANNUAL ASSESSMENT PEDS TO ADULT TRANSITION ANNUAL ASSESSMENT [facility] Start: 2016 PEDS TO ADULT TRANSI TION INITIAL DISCUSSION PEDS TO ADULT TRANSITION INITIAL DISCUSSION [facility] Start: 02-28-2014 MENINGOCOCCAL B: Consider based on risk (1 of 2 - Risk Bexsero 2-dose series) MENINGOCOCCAL B: Consider based on risk (1 of 2 - Risk Bexsero 2-dose series) [facility] Start: 2004 COVID-19 VACCINE (#1) COVID-19 VACCI NE (#1) [facility] Start: 2004 Hepatitis C screening HEPATITI S C VIRUS SCREENING [facility] Start: 2004 Screening for Chlamy ej trachomatis GONORRHEA SCREEN [facility] Chlamydia trachomatis+Neisseria gonorrhoeae DNA [Presence] in Unspecified specimen by KAYE with probe detection GONORRHEA/CHLAMYDIA NAAT Lab Routine Routine screening for STI (sexually transmitted infection) 09/25/2024 12:29 PM EDT [facility] Hepatic function 200 0 panel - Serum or Plasma HEPATIC FUNCTION PANEL Lab Routine Acne vulgaris 01/24/2024 9:03 AM [facility] Work Phone: Hepatic function 200 0 panel - Serum or Plasma HEPATIC FUNCTION PANEL Lab Routine Acne vulgaris Disease of lips Xerosis cutis Other mcc (current) drug therapy 04/25/2024 8:07 AM EST [facility] Insertion intrauteri ne device iud INSERT INTRAUTERINE DEVICE Procedures Routine Encounter for IUD insertion Ordered: 03/29/2022 [facility] Work Phone: Comment on above: Ordered: 03/29/2022 LIPID PANEL W CALCUL ATED LDL LIPID PANEL W CALCULATED LDL Lab Routine Acne vulgaris 01/24/2024 9:03 AM [facility] LIPID PANEL W CALCUL ATED LDL LIPID PANEL W CALCULATED LDL Lab Routine Acne vulgaris Disease of lips Xerosis cutis 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 04/25/2024 8:07 AM [facility] Work Phone: TRICHOMONAS VAGINALI S NAAT TRICHOMONAS VAGINALIS NAAT Lab Routine Routine screening for STI (sexually transmitted infection) 09/25/2024 12:29 PM EDT [facility] Immunizations Immunization Date Immunization Notes Care Provider Davina garza 03-11-2024 COVID-19 vaccine, ag e 12+ yr (MODERNA) Fay Calderon MD Work Phone: [facility] 01-17-2024 influenza, seasonal, injectable, preservative free [facility] Injection Nurse [place] Work Phone: [facility] 01-17-2024 influenza virus vacc ine, unspecified formulation Fay Calderon MD Work Phone: [facility] 08-09-2023 meningococcal B vacc ine, recombinant, OMV, adjuvanted Fay Calderon MD Work Phone: [facility] 01-10-2023 Influenza, injectabl e, Madin Charissa Canine Kidney, preservative free, quadrivalent Fay Calderon MD Work Phone: [facility] 01-10-2023 influenza virus vacc ine, unspecified formulation Fay Calderon MD Work Phone: [facility] 06-07-2022 meningococcal B vacc ine, recombinant, OMV, adjuvanted Fay Calderon MD Work Phone: [facility] 01-13-2022 influenza, injectabl e, quadrivalent, preservative free Fay Calderon MD Work Phone: [facility] 01-13-2022 influenza virus vacc ine, unspecified formulation Jailene San AUTO 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-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 Work Phone: [facility] 01-08-2021 influenza, injectabl e, quadrivalent, contains preservative Fm Wstr Work Phone: [facility] 01-08-2021 meningococcal polysaccharide (groups A, C, Y and W-135) diphtheria toxoid conjugate vaccine (MCV4P) Fm Wstr Work Phone: [facility] 06-19-2020 COVID-19 vaccine, ag e 12+ yr (PFIZER-BIONTECH - PURPLE [facility]) Fm Wstr Work Phone: [facility] 05-29-2020 COVID-19 vaccine, ag e 12+ yr (PFIZER-BIONTECH - PURPLE [facility]) Fm Wstr Work Phone: [facility] 12-21-2019 influenza, injectabl e, quadrivalent, contains preservative Fm Wstr Work Phone: [facility] 01-06-2019 influenza, injectabl e, quadrivalent, contains preservative Fm Wstr Work Phone: [facility] 12-10-2017 influenza, injectabl e, quadrivalent, contains preservative Fm Wstr Work Phone: [facility] 11-25-2016 influenza, injectabl e, quadrivalent, contains preservative Fm Wstr Work Phone: [facility] 06-10-2016 Human Papillomavirus 9-valent vaccine Fm Wstr Work Phone: [facility] 12-19-2015 influenza, injectabl e, quadrivalent, contains preservative Fm Wstr Work Phone: [facility] Work Phone: 12-08-2015 Human Papillomavirus 9-valent vaccine Fm Wstr Work Phone: [facility] 10-28-2015 Human Papillomavirus 9-valent vaccine Fm Wstr Work Phone: [facility] 10-28-2015 meningococcal polysaccharide (groups A, C, Y and W-135) diphtheria toxoid conjugate vaccine (MCV4P) Fm Wstr Work Phone: [facility] 10-28-2015 tetanus toxoid, redu luis m diphtheria toxoid, and acellular pertussis vaccine, adsorbed Fm Wstr Work Phone: [facility] 01-16-2015 influenza, injectabl e, quadrivalent, contains preservative Fm Wstr Work Phone: [facility] 12-19-2013 influenza, seasonal, injectable Fm Wstr Work Phone: [facility] 12-22-2012 influenza virus vacc ine, live, attenuated, for intranasal use Wstr Work Phone: [facility] Work Phone: 12-18-2011 influenza virus vacc ine, live, attenuated, for intranasal use Wstr Work Phone: [facility] Work Phone: 12-12-2010 influenza virus vacc ine, live, attenuated, for intranasal use Wstr Work Phone: [facility] Work Phone: 12-16-2009 influenza virus vacc ine, unspecified formulation Wstr Work Phone: [facility] 10-03-2009 Diphtheria, tetanus toxoids and acellular pertussis vaccine, and poliovirus vaccine, inactivated Wstr Work Phone: [facility] Work Phone: 10-03-2009 measles, mumps and rubella virus vaccine Wstr Work Phone: [facility] Work Phone: 10-03-2009 varicella virus vaccine W str Work Phone: [facility] Work Phone: 02-24-2009 novel influenza-H1N1 -09, all formulations Wstr Work Phone: [facility] 12-12-2008 influenza virus vacc ine, unspecified formulation Wstr Work Phone: [facility] 01-26-2008 influenza virus vacc ine, unspecified formulation Wstr Work Phone: [facility] Work Phone: 01-09-2007 influenza virus vacc ine, unspecified formulation Wstr Work Phone: [facility] [facility] Work Phone: 01-17-2006 influenza virus vacc ine, unspecified formulation Wstr Work Phone: [facility] Work Phone: 06-01-2005 diphtheria, tetanus toxoids and acellular pertussis vaccine Fm Wstr Work Phone: [facility] Work Phone: 06-01-2005 haemophilus influenz ae type b vaccine, HbOC conjugate Wstr Work Phone: [facility] Work Phone: 03-02-2005 influenza virus vacc ine, unspecified formulation Ws Work Phone: [facility] Work Phone: 03-02-2005 measles, mumps and rubella virus vaccine Wstr Work Phone: [facility] Work Phone: 03-02-2005 pneumococcal conjuga te vaccine, 7 valent Wstr Work Phone: [facility] Work Phone: 03-02-2005 varicella virus vaccine [facility] Work Phone: [facility] Work Phone: 01-07-2005 influenza virus vacc ine, unspecified formulation Ws Work Phone: [facility] Work Phone: 2004 haemophilus influenz ae type b vaccine, HbOC conjugate [facility] Work Phone: [facility] Work Phone: 2004 DTaP-hepatitis B and poliovirus vaccine [facility] Work Phone: [facility] Work Phone: 2004 pneumococcal conjuga te vaccine, 7 valent Wstr Work Phone: [facility] Work Phone: 2004 DTaP-hepatitis B and poliovirus vaccine [facility] Work Phone: [facility] Work Phone: 2004 haemophilus influenz ae type b vaccine, HbOC conjugate Wstr Work Phone: [facility] Work Phone: 2004 pneumococcal conjuga te vaccine, 7 valent Fm Wstr Work Phone: [facility] Work Phone: 2004 DTaP-hepatitis B and poliovirus vaccine Wstr Work Phone: [facility] Work Phone: 2004 haemophilus influenz ae type b vaccine, HbOC conjugate Wstr Work Phone: [facility] Work Phone: 2004 pneumococcal conjuga te vaccine, 7 valent Wstr Work Phone: [facility] Work Phone: 2004 hepatitis B vaccine, pediatric or pediatric/adolescent dosage Wstr Work Phone: [facility] Work Phone: Payers Date Payer Category Payer Self-pay [id number] 2021 Managed Care (unspecified) [facility] [id number] 2010 [facility] PPO [id number] 2010 Unknown [employer] PPO [id number] 2010-Present [phone] [address] [place] [address] PPO [id number] 2010 Unknown [id number] 2010 Unknown [id number] 2004 Unknown [id number] 2004 Unknown [id number] 2004 Unknown [id number] 2004 Unknown [id number] 2004 Unknown [id number] Unknown [id number] Social History Date Type Detail Facility Start: 10-19-2021 End: 12-20-2022 Tobacco smoking status WAIS Never smoked tobacco [facility] Work Phone: Start: 04-28-2021 End: 09-25-2024 Alcohol intake Current non-drinker of alcohol (finding) [facility] Start: 11-30-2019 End: 06-07-2022 History SDOH Social Connections Phone 5 [facility] Start: 11-30-2019 End: 06-07-2022 History SDOH Social Connections Baptism 3 [facility] Start: 11-30-2019 End: 06-07-2022 History SDOH Social Connections Membership 1 [facility] Start: 11-30-2019 History SDOH Social Connections Living 7 [facility] Start: 04-03-2021 End: 06-07-2022 History SDOH Physical Activity DPW 6 [facility] Start: 04-03-2021 History SDOH Physica l Activity MPS 10 [facility] Start: 04-03-2021 End: 06-07-2022 History SDOH Transport Med 2 [facility] [place] Start: 2004 Sex Assigned At Not on file [facility] Start: 06-29-2021 End: 12-13-2021 Exposure to SARS-CoV-2 (event) Not sure [facility] Start: 10-19-2021 End: 12-20-2022 Tobacco use and exposure Smokeless tobacco non-user [facility] Start: 11-08-2021 End: 12-08-2021 Exposure to SARS-CoV-2 (event) Unable to assess [facility] Work Phone: Start: 11-20-2020 Tobacco smoking stat us [facility] Unknown if ever smoked [facility] Work Phone: Start: 2005 Sex Assigned At Female W [facility] Work Phone: Start: 06-07-2022 History SDOH Alcohol Std Drinks 0 [facility] Start: 06-07-2022 History SDOH Social Connections Living 98 [facility] Start: 12-20-2022 End: 03-23-2023 [facility] Start: 12-20-2022 End: 03-23-2023 Tobacco use panel [facility] Do you belong to any clubs or organizations such as zoroastrian groups, unions, fraternal or athletic groups, or school groups? Yes [facility] Are you now , , , , never or living with a partner? Refused [facility] How often to you hav e a drink containing alcohol? Never [facility] Start: 02-13-[address] inks containing alcohol do you have on a typical day? Patient does not drink [facility] Do you feel stress - tense, restless, nervous, or anxious, or unable to sleep at night because your mind is troubled all the time - these days [OSQ] Only a little [facility] (I/We) worried adelita er (my/our) food would run out before (I/we) got money to buy more. Never true [facility] In the past 12 month s, was there a time when you were not able to pay the mortgage or rent on time? No [facility] Are you now , , , , never or living with a partner? Never [facility] Do you feel stress - tense, restless, nervous, or anxious, or unable to sleep at night because your mind is troubled all the time - these days [OSQ] Not at all [facility] Start: 12-20-2022 Sex Female (finding) [facility] How often to you hav e a drink containing alcohol? 2-3 time week [facility] How many standard dr inks containing alcohol do you have on a typical day? 3 or 4 [facility] How often do you hav e 6 or more drinks on 1 occasion? Monthly [facility] Goals Date Patient Goal Desired Activity /State Functional Status Date Assessment Result Facility 09-25-2024 Total score [AUDIT-C] 6 09/26/19 11:42 AM Valerie Ruvalcaba LPN [facility] 09-25-2024 How often to you hav e a drink containing alcohol? 2-3 times a week 09/25/2024 11:42 AM Valerie Ruvalcaba LPN 2-3 time sa week [facility] 09-25-[address] inks containing alcohol do you have on a typical day? 3 or 4 09/25/2024 11:42 AM Valerie Ruvalcaba LPN 3 or 4 [facility] 09-25-2024 How often do you hav e 6 or more drinks on 1 occasion? Monthly 09/25/2024 11:42 AM EDT Valerie Alanis LPN [facility] 05-13-2014 Are you deaf, or do you have serious difficulty hearing No 05/13/2014 7:00 AM Cathryn Jesus MA No [facility] 05-13-2014 Are you blind, or do you have serious difficulty seeing, even when wearing glasses No 05/13/2014 7:00 AM Cathryn Jesus MA No [facility] 05-13-2014 Do you have serious difficulty walking or climbing stairs No 05/13/2014 7:00 AM Cathryn Jesus MA No [facility] 05-13-2014 Do you have difficul ty dressing or bathing No 05/13/2014 7:00 AM Cathryn Jesus MA [facility] Mental Status Date Assessment Result Facility 05-13-2014 Because of a physica l, mental, or emotional condition, do you have serious difficulty concentrating, remembering, or making decisions No 05/13/2014 7:00 AM Cathryn Jesus MA [facility] Clinical Notes 02-01-2019 to 10-29-2024 Telephone Encounter - Susanna Booth LPN - 10/29/2024 3:23 PM EDTTelephone Encounter - Susanna Booth LPN - 10/29/2024 3:23 PM EDTTelephone Encounter - Diana Davies RN - 10/29/2024 8:48 AM EDT Note Date & Type Note Facility 10-29-2024 Telephone encounter Note College medication form was completed and then signed by Dr Calderon. . [facility] 10-29-2024 Miscellaneous Notes College medication form was completed and then signed by Dr Calderon. . forms at desk for review/signature. Letter also created and pended. please review. Thank you documented in this encounter [facility] 10-29-2024 Telephone encounter Note forms at desk for review/signature. Letter also created and pended. please review. Thank you [facility] 10-04-2024 Telephone encounter Note Patient's request for medication is as follows Requested Prescriptions Pending Prescriptions Disp Refills amphetamine-dextroamphetamine XR (ADDERALL XR) 25 mg capsule 30 capsule 0 Sig: Take 1 capsule by mouth once daily for 30 days. Order entered - please phone pharmacy and notify patient. Fay Calderon MD [facility] 10-04-2024 Miscellaneous Notes Patient's request for medication is as follows Requested Prescriptions Pending Prescriptions Disp Refills amphetamine-dextroamphetamine XR (ADDERALL XR) 25 mg capsule 30 capsule 0 Sig: Take 1 capsule by mouth once daily for 30 days. Order entered - please phone pharmacy and notify patient. Fay Calderon MD documented in this encounter [facility] 09-25-2024 Note HNO ID: [id number] Author: FAY CALDERON MD Service: ? Author Type: Physician Type: Progress Notes Filed: 09/25/2024 13:31 Note Text: WELL VISIT PEDIATRIC 18+ YRS OLD Katelynn is a 19 year old who presents today for well exam. 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 Syncopal episodes 5x total PAST SURGICAL HISTORY Procedure Laterality Date PAST SURGICAL HISTORY OF 07/2018 endoscopy TONSILLECTOMY AND ADENOIDECTOMY T/A (under age 12 years) ALLERGIES No Known Allergies Medications: Cromolyn Sodium (CROLOM) 4 % ophthalmic solution Use 1 drop in both eyes four times daily. olopatadine (PATANOL) 0.1 % ophthalmic solution Use 1 drop in both eyes two times a day. fexofenadine (ANIA ALLERGY) 180 mg tablet Take 180 mg by mouth once daily. levonorgestrel (MIRENA) 21 mcg/24 hours (8 yrs) 52 mg IUD 1 Each by INTRAUTERINE route as directed. albuterol HFA (PROVENTIL HFA, VENTOLIN HFA) 90 mcg/actuation inhaler Inhale 2 puffs every 4 - 6 hours as needed for cough, wheezing, or shortness of breath FAMILY HISTORY Problem Relation Age of Onset other (osteopenia) Mother None Father None Brother Social History Social History Narrative Not on file Smoking Exposure: Do you spend a significant amount of time with anyone who smokes? No School: [employer]. No academic or school related concerns No behavioral concerns Any concerns regarding peer interactions? No Recreational Screen Time totaling more than 2 hours of screen time per day. Physical Activity: more than 1 hour of physical activity per day Fainting, dizziness, significant shortness of breath or chest pain with sports or exercise: No History of concussion in the last year: No Safety: 04/03/2021 Pediatric SDOH - Response to gun questions Are there any guns kept in or around your home or where your child spends time? No Reviewed seat belts, bike helmets, and smoke detectors Diet: -Diet is well balanced and appropriate for age -Fruits are eaten with most meals -Vegetables are eaten with most meals -Drinks whole milk -Drinks water daily -Regularly eats meals with family Elimination: no concerns Dental: dental care current Sleep: -no sleep concerns Yes, cell phone turned off before bedtime- Yes Vision: No vision concerns Hearing: No hearing concerns Growth: No growth concerns Gynecological history: IUD Sexual History: Attraction: male Sexually Active: yes Screening tools reviewed and discussed with patient/dldnhb-IPW-9, PHQ-9, and Social Determinants of Health. Please see Patient Entered Data. SDOH: Food Insecurity: No Food Insecurity (06/07/2022) Hunger Vital Sign Worried About Running Out of Food in the Last Year: Never true Ran Out of Food in the Last Year: Never true Financial Resource Strain: Low Risk (06/07/2022) Overall Financial Resource Strain (CARDIA) Difficulty of Paying Living Expenses: Not hard at all Transportation Needs: No Transportation Needs (06/07/2022) PRAPARE - Transportation Lack of Transportation (Medical): No Lack of Transportation (Non-Medical): No Housing Stability: Low Risk (06/07/2022) Housing Stability Vital Sign Unable to Pay for Housing in the Last Year: No Number of Places Lived in the Last Year: 1 Unstable Housing in the Last Year: No Discussed SDOH results with patient/family. SDOH needs identified: no concerns identified OBJECTIVE Physical Exam: BP 110/74 Pulse 72 Temp 36.7 ?C (98.1 ?F) (Temporal) Resp 16 Ht 174.3 cm (5' 8.62) Wt 73.4 kg (161 lb 12.8 oz) LMP 03/02/2023 BMI 24.16 kg/m? Blood pressure %teresa are not available for patients who are 18 years or older. Blood pressure %teresa are not available for patients who are 18 years or older. Normalized BMI data available only for age 0 to 20 years. Last BMI: Wt: 78.9 kg (174 lb) (93%, Z= 1.49)* BMI: 25.74 kg/(m2) Last 4 Encounter Wt Readings: Date: Wt: 09/25/2024 73.4 kg (161 lb 12.8 oz) 08/09/2023 78.9 kg (174 lb) (93%, Z= 1.49)* 03/23/2023 76.7 kg (169 lb) (92%, Z= 1.40)* 06/07/2022 76.6 kg (168 lb 12.8 oz) (93%, Z= 1.45)* Last 4 Encounter Ht Readings: Date: Ht: 09/25/2024 174.3 cm (5' 8.62) 08/09/2023 175.1 cm (5' 8.94) (97%, Z= 1.83)* 03/ (more content not included)... [facility] 09-25-2024 History of Present illness Narrative WELL VISIT PEDIATRIC 18+ YRS OLD Katelynn is a 19 year old who presents today for well exam. 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 Syncopal episodes 5x total PAST SURGICAL HISTORY Procedure Laterality Date PAST SURGICAL HISTORY OF 07/2018 endoscopy TONSILLECTOMY & ADENOIDECTOMY <AGE 12 02/23/2010 T/A (under age 12 years) ALLERGIES No Known Allergies Medications: Cromolyn Sodium (CROLOM) 4 % ophthalmic solution Use 1 drop in both eyes four times daily. olopatadine (PATANOL) 0.1 % ophthalmic solution Use 1 drop in both eyes two times a day. fexofenadine (ANIA ALLERGY) 180 mg tablet Take 180 mg by mouth once daily. levonorgestrel (MIRENA) 21 mcg/24 hours (8 yrs) 52 mg IUD 1 Each by INTRAUTERINE route as directed. albuterol HFA (PROVENTIL HFA, VENTOLIN HFA) 90 mcg/actuation inhaler Inhale 2 puffs every 4 - 6 hours as needed for cough, wheezing, or shortness of breath FAMILY HISTORY Problem Relation Age of Onset other (osteopenia) Mother None Father None Brother Social History Social History Narrative Not on file Smoking Exposure: Do you spend a significant amount of time with anyone who smokes? No School: [employer]. No academic or school related concerns No behavioral concerns Any concerns regarding peer interactions? No Recreational Screen Time totaling more than 2 hours of screen time per day. Physical Activity: more than 1 hour of physical activity per day Fainting, dizziness, significant shortness of breath or chest pain with sports or exercise: No History of concussion in the last year: No Safety: 04/03/2021 Pediatric SDOH - Response to gun questions Are there any guns kept in or around your home or where your child spends time? No Reviewed seat belts, bike helmets, and smoke detectors Diet: -Diet is well balanced and appropriate for age -Fruits are eaten with most meals -Vegetables are eaten with most meals -Drinks whole milk -Drinks water daily -Regularly eats meals with family Elimination: no concerns Dental: dental care current Sleep: -no sleep concerns Yes, cell phone turned off before bedtime- Yes Vision: No vision concerns Hearing: No hearing concerns Growth: No growth concerns Gynecological history: IUD Sexual History: Attraction: male Sexually Active: yes Screening tools reviewed and discussed with patient/yoyich-QOX-2, PHQ-9, and Social Determinants of Health. Please see Patient Entered Data. SDOH: Food Insecurity: No Food Insecurity (06/07/2022) Hunger Vital Sign Worried About Running Out of Food in the Last Year: Never true Ran Out of Food in the Last Year: Never true Financial Resource Strain: Low Risk (06/07/2022) Overall Financial Resource Strain (CARDIA) Difficulty of Paying Living Expenses: Not hard at all Transportation Needs: No Transportation Needs (06/07/2022) PRAPARE - Transportation Lack of Transportation (Medical): No Lack of Transportation (Non-Medical): No Housing Stability: Low Risk (06/07/2022) Housing Stability Vital Sign Unable to Pay for Housing in the Last Year: No Number of Places Lived in the Last Year: 1 Unstable Housing in the Last Year: No Discussed SDOH results with patient/family. SDOH needs identified: no concerns identified OBJECTIVE Physical Exam: BP 110/74 Pulse 72 Temp 36.7 C (98.1 F) (Temporal) Resp 16 Ht 174.3 cm (5' 8.62) Wt 73.4 kg (161 lb 12.8 oz) LMP 03/02/2023 BMI 24.16 kg/m Blood pressure %teresa are not available for patients who are 18 years or older. Blood pressure %teresa are not available for patients who are 18 years or older. Normalized BMI data available only for age 0 to 20 years. Last BMI: Wt: 78.9 kg (174 lb) (93%, Z= 1.49)* BMI: 25.74 kg/(m^2) Last 4 Encounter Wt Readings: Date: Wt: 09/25/2024 73.4 kg (161 lb 12.8 oz) 08/09/2023 78.9 kg (174 lb) (93%, Z= 1.49)* 03/23/2023 76.7 kg (169 lb) (92%, Z= 1.40)* 06/07/2022 76.6 kg (168 lb 12.8 oz) (93%, Z= 1.45)* Last 4 Encounter Ht Readings: Date: Ht: 09/25/2024 174.3 cm (5' 8.62) 08/09/2023 175.1 cm (5' 8.94) (97%, Z= 1.83)* 06/07/2022 174.3 cm (5' 8.62) (96%, Z= 1.72)* 04/28/2021 175.3 cm (5' 9) (97%, Z= 1.90)* General: Well developed, No acute distress Head: normocephalic Eyes: conjunctivae/corneas clear and pupils equal and reactive to light, extraocular movements intact Ears: TMs translucent bilaterally, normal landmarks noted Nose: no erythema or rhinorrhea Oropharynx: moist mucous membranes, no erythema or exudate Neck: supple, no adenopathy Spine: Back symmetric, no curvature. Resp: lungs clear to auscultation Heart: Normal rate, regular rhythm, no murmur Breast: deferred Abdomen: Soft, nontender, nondistended, no palpable organomegaly or masses, normal bowel sounds Genitalia: deferred Extremities: Full ROM and no swelling, erythema or tenderness Neuro: No focal deficits or abnormal findings present Skin: no rashes ASSESSMENT & PLAN Well 19 ADHD - doing well on adderall xr25mg and adderall 10mg in the afternoon H/o recent accutane Rx- will check lipid panel and LFTs Will screen for STIs and anemia today H/o frequent vaginal yeast infections - diflucan ordered for upcoming study abroad trip Based on PHQ-9 Score: 4 and interview, presentation is not consistent with depression. Based on ANDERSON-7 Score: 5 and interview, no further action needed. - Discussed diet and safety. - Dental care discussed. - Bright Futures handout given (See Patient Instructions). - No immunizations were recommended to be given at this visit. - Katelynn is Cleared for all sports without restriction. If conditions arise after the athlete has been cleared for participation the provider may rescind the medical eligibility. - Healthcare transition statement not discussed.. - Follow up in one year for routine physical. Fay Calderon MD documented in this encounter [facility] 07-10-2024 Note HNO ID: [id number] Author: FAY CALDERON MD Service: ? Author Type: Physician Type: Progress Notes Filed: 07/10/2024 14:42 Note Text: I met with pt for virtual appt Katelynn is an 19 year old female for follow up of ADHD. Current medications: Current Outpatient Medications Medication Sig Dispense Refill amphetamine-dextroamphetamine XR (ADDERALL XR) 25 mg capsule Take 1 capsule by mouth once daily for 30 days. 30 capsule 0 [START ON 08/04/2024] amphetamine-dextroamphetamine XR (ADDERALL XR) 25 mg capsule Take 1 capsule by mouth once daily for 30 days. Patient should start on August 04, 2024. 30 capsule 0 [START ON 09/03/2024] amphetamine-dextroamphetamine XR (ADDERALL XR) 25 mg capsule Take 1 capsule by mouth once daily for 30 days. Patient should start on September 03, 2024. 30 capsule 0 dextroamphetamine-amphetamine (ADDERALL) 10 mg tablet Take 1 tablet by mouth once daily for 30 days. 30 tablet 0 [START ON 08/04/2024] dextroamphetamine-amphetamine (ADDERALL) 10 mg tablet Take 1 tablet by mouth once daily for 30 days. Patient should start on August 04, 2024. 30 tablet 0 [START ON 09/03/2024] dextroamphetamine-amphetamine (ADDERALL) 10 mg tablet Take 1 tablet by mouth once daily for 30 days. Patient should start on September 03, 2024. 30 tablet 0 Cromolyn Sodium (CROLOM) 4 % ophthalmic solution Use 1 drop in both eyes four times daily. 10 mL 0 olopatadine (PATANOL) 0.1 % ophthalmic solution Use 1 drop in both eyes two times a day. 5 mL 0 dextroamphetamine-amphetamine (ADDERALL) 10 mg tablet Take 1 tablet by mouth once daily for 30 days. 30 tablet 0 fexofenadine (ANIA ALLERGY) 180 mg tablet Take 180 mg by mouth once daily. levonorgestrel (MIRENA) 21 mcg/24 hours (8 yrs) 52 mg IUD 1 Each by INTRAUTERINE route as directed. 1 Each 0 albuterol HFA (PROVENTIL HFA, VENTOLIN HFA) 90 mcg/actuation inhaler Inhale 2 puffs every 4 - 6 hours as needed for cough, wheezing, or shortness of breath 1 Each 0 No current facility-administered medications for this visit. Side effects of medications include: none Since her last meeting 10 month(s) ago, she has done well at college. She feels her overall performance, hyperactivity, concentration , and distractibilty could be improved with higher dose of medication Assessment: (F90.0) Attention deficit hyperactivity disorder (ADHD), predominantly inattentive type (primary encounter diagnosis) Increase XR to addreall xr 25mg Plan: amphetamine-dextroamphetamine XR (ADDERALL XR) 25 mg capsule, amphetamine-dextroamphetamine XR (ADDERALL XR) 25 mg capsule, amphetamine-dextroamphetamine XR (ADDERALL XR) 25 mg capsule, dextroamphetamine-amphetamine (ADDERALL) 10 mg tablet, dextroamphetamine-amphetamine (ADDERALL) 10 mg tablet, dextroamphetamine-amphetamine (ADDERALL) 10 mg tablet F/u in 6 months Fay Calderon MD [facility] 07-10-2024 History of Present illness Narrative I met with pt for virtual appt Katelynn is an 19 year old female for follow up of ADHD. Current medications: Current Outpatient Medications Medication Sig Dispense Refill amphetamine-dextroamphetamine XR (ADDERALL XR) 25 mg capsule Take 1 capsule by mouth once daily for 30 days. 30 capsule 0 [START ON 08/04/2024] amphetamine-dextroamphetamine XR (ADDERALL XR) 25 mg capsule Take 1 capsule by mouth once daily for 30 days. Patient should start on August 04, 2024. 30 capsule 0 [START ON 09/03/2024] amphetamine-dextroamphetamine XR (ADDERALL XR) 25 mg capsule Take 1 capsule by mouth once daily for 30 days. Patient should start on September 03, 2024. 30 capsule 0 dextroamphetamine-amphetamine (ADDERALL) 10 mg tablet Take 1 tablet by mouth once daily for 30 days. 30 tablet 0 [START ON 08/04/2024] dextroamphetamine-amphetamine (ADDERALL) 10 mg tablet Take 1 tablet by mouth once daily for 30 days. Patient should start on August 04, 2024. 30 tablet 0 [START ON 09/03/2024] dextroamphetamine-amphetamine (ADDERALL) 10 mg tablet Take 1 tablet by mouth once daily for 30 days. Patient should start on September 03, 2024. 30 tablet 0 Cromolyn Sodium (CROLOM) 4 % ophthalmic solution Use 1 drop in both eyes four times daily. 10 mL 0 olopatadine (PATANOL) 0.1 % ophthalmic solution Use 1 drop in both eyes two times a day. 5 mL 0 dextroamphetamine-amphetamine (ADDERALL) 10 mg tablet Take 1 tablet by mouth once daily for 30 days. 30 tablet 0 fexofenadine (ANIA ALLERGY) 180 mg tablet Take 180 mg by mouth once daily. levonorgestrel (MIRENA) 21 mcg/24 hours (8 yrs) 52 mg IUD 1 Each by INTRAUTERINE route as directed. 1 Each 0 albuterol HFA (PROVENTIL HFA, VENTOLIN HFA) 90 mcg/actuation inhaler Inhale 2 puffs every 4 - 6 hours as needed for cough, wheezing, or shortness of breath 1 Each 0 No current facility-administered medications for this visit. Side effects of medications include: none Since her last meeting 10 month(s) ago, she has done well at college. She feels her overall performance, hyperactivity, concentration , and distractibilty could be improved with higher dose of medication Assessment: (F90.0) Attention deficit hyperactivity disorder (ADHD), predominantly inattentive type (primary encounter diagnosis) Increase XR to addreall xr 25mg Plan: amphetamine-dextroamphetamine XR (ADDERALL XR) 25 mg capsule, amphetamine-dextroamphetamine XR (ADDERALL XR) 25 mg capsule, amphetamine-dextroamphetamine XR (ADDERALL XR) 25 mg capsule, dextroamphetamine-amphetamine (ADDERALL) 10 mg tablet, dextroamphetamine-amphetamine (ADDERALL) 10 mg tablet, dextroamphetamine-amphetamine (ADDERALL) 10 mg tablet F/u in 6 months Fay Calderon MD documented in this encounter [facility] 05-17-2024 Telephone encounter Note please see refill encounter dated 05-14-24 for further Diana Davies RN [facility] 05-17-2024 Miscellaneous Notes please see refill encounter dated 05-14-24 for further Diana Davies RN Last WCC: 08-09-23 Last ADHD / Med Check visit: 08-09-23 Verify RX Benefits Completed Last medication refill date: 02-14-24 Requesting 30 day supply Retail pharmacy updated: Completed Health Maintenance due: Influenza Vaccine(1) due on 11/13/2023 GC (Gonorrhea) Screening (18-24) due on 03/23/2024 Chlamydia Screening (18-24) due on 03/23/2024 Diana Davies RN documented in this encounter [facility] 05-14-2024 Telephone encounter Note Patient's request for medication is as follows Requested Prescriptions Signed Prescriptions Disp Refills amphetamine-dextroamphetamine XR (ADDERALL XR) 20 mg capsule 30 capsule 0 Sig: Take 1 capsule by mouth once daily for 30 days. Authorizing Provider: FAY CALDERONroamphetamine-amphetamine (ADDERALL) 10 mg tablet 30 tablet 0 Sig: Take 1 tablet by mouth once daily for 30 days. Authorizing Provider: FAY CALDERON Order entered - please phone pharmacy and notify patient. Fay Calderon MD [facility] 05-14-2024 Miscellaneous Notes Patient's request for medication is as follows Requested Prescriptions Signed Prescriptions Disp Refills amphetamine-dextroamphetamine XR (ADDERALL XR) 20 mg capsule 30 capsule 0 Sig: Take 1 capsule by mouth once daily for 30 days. Authorizing Provider: FAY CALDERON dextroamphetamine-amphetamine (ADDERALL) 10 mg tablet 30 tablet 0 Sig: Take 1 tablet by mouth once daily for 30 days. Authorizing Provider: FAY CALDERON Order entered - please phone pharmacy and notify patient. Fay Calderon MD Last WCC: 08/09/23 Last ADHD / Med Check visit: 08/09/23. Next scheduled for 06/26/24 Verify RX Benefits Completed Last medication refill date: 02/14/24 Requesting 30 day supply Retail pharmacy updated: Completed Patient aware RX will be sent to pharmacy. No need to notify patient. Health Maintenance due: Influenza Vaccine(1) due on 11/13/2023 GC (Gonorrhea) Screening (18-24) due on 03/23/2024 Chlamydia Screening (18-24) due on 03/23/2024 Jyotsna Gallardo RN documented in this encounter [facility] 05-14-2024 Telephone encounter Note Last WCC: 08/09/23 Last ADHD / Med Check visit: 08/09/23. Next scheduled for 06/26/24 Verify RX Benefits Completed Last medication refill date: 02/14/24 Requesting 30 day supply Retail pharmacy updated: Completed Patient aware RX will be sent to pharmacy. No need to notify patient. Health Maintenance due: Influenza Vaccine(1) due on 11/13/2023 GC (Gonorrhea) Screening (18-24) due on 03/23/2024 Chlamydia Screening (18-24) due on 03/23/2024 Jyotsna Gallardo RN [facility] 05-07-2024 Telephone encounter Note Last WCC: 08-09-23 Last ADHD / Med Check visit: 08-09-23 Verify RX Benefits Completed Last medication refill date: 02-14-24 Requesting 30 day supply Retail pharmacy updated: Completed Health Maintenance due: Influenza Vaccine(1) due on 11/13/2023 GC (Gonorrhea) Screening (18-) due on 03/23/2024 Chlamydia Screening (18-24) due on 03/23/2024 Diana Davies RN [facility] 04-25-2024 History of Present illness Narrative Venipuncture performed 04/25/2024. Verified order. Blood drawn from [employer] [facility]. 1 attempt was performed. Pt tolerated procedure well and denies any complaints. Site with no bruising, drainage, redness, pain. Dressing applied, dry and intact at time of discharge. documented in this encounter [facility] 02-14-2024 Telephone encounter Note Patient's request for medication is as follows Requested Prescriptions Pending Prescriptions Disp Refills amphetamine-dextroamphetamine XR (ADDERALL XR) 20 mg capsule 30 capsule 0 Sig: Take 1 capsule by mouth once daily for 30 days. dextroamphetamine-amphetamine (ADDERALL) 10 mg tablet 30 tablet 0 Sig: Take 1 tablet by mouth once daily for 30 days. Order entered - please phone pharmacy and notify patient. Fay Calderon MD [facility] 02-14-2024 Miscellaneous Notes Patient's request for medication is as follows Requested Prescriptions Pending Prescriptions Disp Refills amphetamine-dextroamphetamine XR (ADDERALL XR) 20 mg capsule 30 capsule 0 Sig: Take 1 capsule by mouth once daily for 30 days. dextroamphetamine-amphetamine (ADDERALL) 10 mg tablet 30 tablet 0 Sig: Take 1 tablet by mouth once daily for 30 days. Order entered - please phone pharmacy and notify patient. Fay Caldreon MD Patient's request for medication is as follows Requested Prescriptions Pending Prescriptions Disp Refills amphetamine-dextroamphetamine XR (ADDERALL XR) 20 mg capsule 30 capsule 0 Sig: Take 1 capsule by mouth once daily for 30 days. dextroamphetamine-amphetamine (ADDERALL) 10 mg tablet 30 tablet 0 Sig: Take 1 tablet by mouth once daily for 30 days. Order entered - please phone pharmacy and notify patient. Fay Calderon MD Last WCC: 08/09/2023 Last ADHD / Med Check visit: 08/09/2023 Verify RX Benefits Completed Last medication refill date: 01/27/2024 Requesting 30 day supply Retail pharmacy updated: Completed Patient aware RX will be sent to pharmacy. No need to notify patient. Health Maintenance due: Influenza Vaccine(1) due on 11/13/2023 Covid-19 Vaccine( season) due on 11/13/2023 Susanna Booth LPN documented in this encounter [facility] 02-14-2024 Telephone encounter Note Patient's request for medication is as follows Requested Prescriptions Pending Prescriptions Disp Refills amphetamine-dextroamphetamine XR (ADDERALL XR) 20 mg capsule 30 capsule 0 Sig: Take 1 capsule by mouth once daily for 30 days. dextroamphetamine-amphetamine (ADDERALL) 10 mg tablet 30 tablet 0 Sig: Take 1 tablet by mouth once daily for 30 days. Order entered - please phone pharmacy and notify patient. Fay Calderon MD [facility] 02-14-2024 Telephone encounter Note Last WCC: 08/09/2023 Last ADHD / Med Check visit: 08/09/2023 Verify RX Benefits Completed Last medication refill date: 01/27/2024 Requesting 30 day supply Retail pharmacy updated: Completed Patient aware RX will be sent to pharmacy. No need to notify patient. Health Maintenance due: Influenza Vaccine(1) due on 11/13/2023 Covid-19 Vaccine( season) due on 11/13/2023 Susanna Booth LPN [facility] 01-24-2024 History of Present illness Narrative You are about to read part of the chart with sensitive personal information. This part of the chart should not be discussed without provider and patient approval. OUTPATIENT BEHAVIORAL HEALTH INTAKE ASSESSMENT Start Time: 10:00 Stop Time: 11:00 Total Time: 60 min of assessment time Informant(s): patient Referral Source: self Questionnaire Scores: PHQ9=6 GAD7=2 Identifying Information and Presenting Concerns: Katelynn Bauer is a 18 y.o., female who presented to [facility] for assessment and treatment of symptoms related to low mood and ADHD. Pt indicated that she has experienced difficulties with managing friends and academics. History of presenting problem: Pt indicated that she has experienced difficulties with confidence and friends in the past. Pt stated that she work hard academically and this can be difficult to connect with others socially. Current Stressors or Precipitants: see above Substance Use: NA Behavioral Health ROS: Depression: worthlessness and indecisiveness Ana: none Anxiety: generalized anxiety Psychosis: negative symptoms Motor: none Other: all other ROS negative Appearance: appropriate Interview behavior: cooperative Eye contact: good Attention: normal Orientation: time, place, and person Mood: normal Affect: appropriate Speech: normal Thought process: normal; Cognitive impairment: none Delusions: none Hallucination: none Motor Activity: normal Insight: good Judgment: good Impulse control: intact Sleep: no change Appetite: no change from normal Energy level: good Pain: No Past Counseling/Therapy History: Previous psychiatric diagnoses: yes Psychiatrist (current): NA forms analysis manager (current): none Therapist/Counselor (current): none TMS/ECT: none Medications: Past outpatient therapy: yes Past IOP/PHP: none Past Hospitalizations: none Trauma History: NA Family History/Relationships: Pt indicated that she is close to family and others back home. Medical History: Pt has a past medical history of ADD (attention deficit disorder). Pt has no past surgical history on file. Pt is allergic to *seasonal. Pt has a current medication list which includes the following prescription(s): amphetamine-dextroamphetamine xr, fexofenadine, fluticasone, levonorgestrel, and olopatadine. Risk Assessment: Suicide Risk Assessment: ED-SAFE: Over the past 2 weeks, have you felt down, depressed, or hopeless? no Over the past 2 weeks, have you had thoughts of killing yourself? no Suicide Risk & Safety: Suicidal ideation (current): none Suicidal actions (current): none Past suicide attempts: Have you ever attempted to kill yourself? no If yes, when did this last happen? Nonsuicidal self injury (current): No Past self-injurious behavior: No Risk of Violence toward others: Violent ideation (current): no Past violent behavior/ideation: no Agitation (current): no Specific target identified: no Social Functioning/History: Pt indicated that she is connected to a sorority and has a good group of friends. Academic Functioning/History: Pt stated that she works hard academically and grades are important to her. Interventions applied: This insurance writer provided active and empathic listening, normalized emotions related to current stressors, provided cognitive reframing related to perceived social constructs. Utilized CBT concepts of locus of control, boundaries and self efficacy as it relates to difficult communication with others. Student responded well to conversations in sessions. Diagnosis: Generalized Anxiety DO Treatment Plan/Goals: Katelynn Bauer is a 18 y.o., female who presents with symptoms consistent with ANDERSON. Pt would benefit from out patient counseling. The initial focus of treatment would be management of negative self talk, with a goal of improved mood. Formal treatment plan to follow in three months. Level of care: Outpatient Psychotherapy Coordination of care: Collaboration and communication with referring provider none Further evaluations/referrals placed: None Pt encouraged to communicate via [employer] or call the clinic with worsening symptoms, side effects, questions, or concerns. Reviewed emergency protocol (call 911 or go to ED) and safety plan as needed. Patient has been informed of the limits of confidentiality: [x] yes [] no If No, explain: Patient was informed of the no show/late cancellation policy. Patients will be dismissed from the practice if they fail to keep three (3) appointments within a rolling 12-month period. This policy includes no shows and cancellations with less than 24 hours notice). [x] yes [] no Discussed automatic release of notes via [employer] with patient, including potential for proxy access: [x] yes [] no Pt expressed understanding and consented to receiving progress notes via [employer]. Pt understands that they are welcome to request a copy of their medical records, including these notes, at any time. Patient and/or patient s family (with consent for adult patient) has participated in developing treatment plan: [x] yes [] no If No, explain: documented in this encounter [facility] 01-24-2024 History of Present illness Narrative Venipuncture performed 01/24/2024. Verified order. Blood drawn from [facility]. 1 attempt was performed. Pt tolerated procedure well and denies any complaints. Site with no bruising, drainage, redness, pain. Dressing applied, dry and intact at time of discharge. documented in this encounter [facility] 01-17-2024 History of Present illness Narrative Influenza Vaccine Questions: Are you sick today?no Do you have allergies to medications, food, a vaccine component (neomycin), or latex?no Have you ever had a serious reaction after receiving a vaccination?no Do you have a history of guillain-barre syndrome?no Have you had any other vaccinations in the last 2 weeks? No Influenza vaccine given to patient as ordered by Jailene San PIPELINE ENGINEER. Immunization screening completed and reviewed with PIPELINE ENGINEER. Patient tolerated administration of immunization well. No bleeding, pain, bruising of injection site. documented in this encounter [facility] 01-09-2024 Telephone encounter Note Patient's request for medication is as follows Requested Prescriptions Pending Prescriptions Disp Refills dextroamphetamine-amphetamine (ADDERALL) 10 mg tablet 30 tablet 0 Sig: Take 1 tablet by mouth once daily for 30 days. Order entered - please phone pharmacy and notify patient. Fay Calderon MD [facility] 01-09-2024 Miscellaneous Notes Patient's request for medication is as follows Requested Prescriptions Pending Prescriptions Disp Refills dextroamphetamine-amphetamine (ADDERALL) 10 mg tablet 30 tablet 0 Sig: Take 1 tablet by mouth once daily for 30 days. Order entered - please phone pharmacy and notify patient. Fay Calderon MD Last WCC: 08/09/23 Last ADHD / Med Check visit: 08/09/23 . Reply sent indicating that patient will be due for med check at the end of January. Verify RX Benefits Completed Last medication refill date: 08/09/23 Requesting 30 day supply Retail pharmacy updated: Completed Patient aware RX will be sent to pharmacy. No need to notify patient. Health Maintenance due: Depression Screening Never done Anxiety Screening Never done Influenza Vaccine(1) due on 11/13/2023 Covid-19 Vaccine( season) due on 11/13/2023 Jyotsna Gallardo RN documented in this encounter [facility] 01-09-2024 Telephone encounter Note Last WCC: 08/09/23 Last ADHD / Med Check visit: 08/09/23 . Reply sent indicating that patient will be due for med check at the end of January. Verify RX Benefits Completed Last medication refill date: 08/09/23 Requesting 30 day supply Retail pharmacy updated: Completed Patient aware RX will be sent to pharmacy. No need to notify patient. Health Maintenance due: Depression Screening Never done Anxiety Screening Never done Influenza Vaccine(1) due on 11/13/2023 Covid-19 Vaccine( season) due on 11/13/2023 Jyotsna Gallardo RN [facility] 11-28-2023 Telephone encounter Note Patient's request for medication is as follows Requested Prescriptions Pending Prescriptions Disp Refills amphetamine-dextroamphetamine XR (ADDERALL XR) 20 mg capsule 30 capsule 0 Sig: Take 1 capsule by mouth once daily for 30 days. Patient should start on January 27, 2024. amphetamine-dextroamphetamine XR (ADDERALL XR) 20 mg capsule 30 capsule 0 Sig: Take 1 capsule by mouth once daily for 30 days. Patient should start on December 28, 2023. amphetamine-dextroamphetamine XR (ADDERALL XR) 20 mg capsule 30 capsule 0 Sig: Take 1 capsule by mouth once daily for 30 days. Order entered - please phone pharmacy and notify patient. Fay Calderon MD [facility] 11-28-2023 Miscellaneous Notes Patient's request for medication is as follows Requested Prescriptions Pending Prescriptions Disp Refills amphetamine-dextroamphetamine XR (ADDERALL XR) 20 mg capsule 30 capsule 0 Sig: Take 1 capsule by mouth once daily for 30 days. Patient should start on January 27, 2024. amphetamine-dextroamphetamine XR (ADDERALL XR) 20 mg capsule 30 capsule 0 Sig: Take 1 capsule by mouth once daily for 30 days. Patient should start on December 28, 2023. amphetamine-dextroamphetamine XR (ADDERALL XR) 20 mg capsule 30 capsule 0 Sig: Take 1 capsule by mouth once daily for 30 days. Order entered - please phone pharmacy and notify patient. Fay Calderon MD Last WCC: 08/09/23 Last ADHD / Med Check visit: 08/09/23. Scheduling offered for January, patient states that she will call back at a later time to set this up Verify RX Benefits Completed Last medication refill date: 10/20/23 Requesting 30 day supply Retail pharmacy updated: Completed Patient aware RX will be sent to pharmacy. No need to notify patient. Health Maintenance due: Depression Screening Never done Anxiety Screening Never done Influenza Vaccine(1) due on 11/13/2023 Jyotsna Gallardo RN documented in this encounter [facility] 11-28-2023 Telephone encounter Note Last WCC: 08/09/23 Last ADHD / Med Check visit: 08/09/23. Scheduling offered for January, patient states that she will call back at a later time to set this up Verify RX Benefits Completed Last medication refill date: 10/20/23 Requesting 30 day supply Retail pharmacy updated: Completed Patient aware RX will be sent to pharmacy. No need to notify patient. Health Maintenance due: Depression Screening Never done Anxiety Screening Never done Influenza Vaccine(1) due on 11/13/2023 Jyotsna Gallardo RN [facility] 10-20-2023 Telephone encounter Note Patient's request for medication is as follows Requested Prescriptions Pending Prescriptions Disp Refills amphetamine-dextroamphetamine XR (ADDERALL XR) 20 mg capsule 30 capsule 0 Sig: Take 1 capsule by mouth once daily for 30 days. Order entered - please phone pharmacy and notify patient. Fay Calderon MD [facility] 10-20-2023 Miscellaneous Notes Patient's request for medication is as follows Requested Prescriptions Pending Prescriptions Disp Refills amphetamine-dextroamphetamine XR (ADDERALL XR) 20 mg capsule 30 capsule 0 Sig: Take 1 capsule by mouth once daily for 30 days. Order entered - please phone pharmacy and notify patient. Fay Calderon MD Last WCC: 08/09/23 Last ADHD / Med Check visit: 08/09/23 Verify RX Benefits Completed Last medication refill date: 10/08/23 Requesting 30 day supply Retail pharmacy updated: Completed Patient aware RX will be sent to pharmacy. No need to notify patient. Health Maintenance due: Depression Screening Never done Anxiety Screening Never done Grisel Sharp RN documented in this encounter [facility] 10-20-2023 Telephone encounter Note Last WCC: 08/09/23 Last ADHD / Med Check visit: 08/09/23 Verify RX Benefits Completed Last medication refill date: 10/08/23 Requesting 30 day supply Retail pharmacy updated: Completed Patient aware RX will be sent to pharmacy. No need to notify patient. Health Maintenance due: Depression Screening Never done Anxiety Screening Never done Grisel Sharp RN [facility] 09-29-2023 Telephone encounter Note Patient's request for medication is as follows Requested Prescriptions Pending Prescriptions Disp Refills amphetamine-dextroamphetamine XR (ADDERALL XR) 20 mg capsule 30 capsule 0 Sig: Take 1 capsule by mouth once daily for 30 days. Do not start before October 08, 2023. Order entered - please phone pharmacy and notify patient. Fay Calderon MD [facility] 09-29-2023 Miscellaneous Notes Patient's request for medication is as follows Requested Prescriptions Pending Prescriptions Disp Refills amphetamine-dextroamphetamine XR (ADDERALL XR) 20 mg capsule 30 capsule 0 Sig: Take 1 capsule by mouth once daily for 30 days. Do not start before October 08, 2023. Order entered - please phone pharmacy and notify patient. Fay Calderon MD Script for September was sent to [facility] but would like to use [facility] pharmacy updated. Last WCC: 08/09/2023 Last ADHD / Med Check visit: 08/09/2023 Verify RX Benefits Completed Last medication refill date: 09/08/2023 Requesting 30 day supply Retail pharmacy updated: Completed Patient aware RX will be sent to pharmacy. No need to notify patient. Health Maintenance due: Behavioral Health Screening Never done Germain Posey RN documented in this encounter [facility] 09-28-2023 Telephone encounter Note [facility] pharmacy updated. Last WCC: 08/09/2023 Last ADHD / Med Check visit: 08/09/2023 Verify RX Benefits Completed Last medication refill date: 09/08/2023 Requesting 30 day supply Retail pharmacy updated: Completed Patient aware RX will be sent to pharmacy. No need to notify patient. Health Maintenance due: Behavioral Health Screening Never done Germain Posey RN [facility] 08-09-2023 History of Present illness Narrative WELL VISIT PEDIATRIC 18+ YRS OLD Katelynn is a 18 year old who presents today for well exam. 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 Syncopal episodes 5x total PAST SURGICAL HISTORY Procedure Laterality Date PAST SURGICAL HISTORY OF 07/2018 endoscopy TONSILLECTOMY & ADENOIDECTOMY <AGE 12 02/23/2010 T/A (under age 12 years) ALLERGIES No Known Allergies Medications: amphetamine-dextroamphetamine XR (ADDERALL XR) 20 mg capsule Take 1 capsule by mouth once daily for 30 days. fexofenadine (ANIA ALLERGY) 180 mg tablet Take 180 mg by mouth once daily. levonorgestrel (MIRENA) 21 mcg/24 hours (8 yrs) 52 mg IUD 1 Each by INTRAUTERINE route as directed. cetirizine (ZYRTEC) 10 mg tablet Take by mouth at bedtime as needed. Pseudoephedrine HCl (SUDAFED SR) 120 mg TbER Take 120 mg by mouth. (Patient not taking: Reported on 03/23/2023) fluticasone (FLONASE) 50 mcg/actuation nasal spray (Patient not taking: Reported on 03/23/2023) fluconazole (DIFLUCAN) 150 mg tablet Take one tab today. May repeat in three days if still symptomatic. (Patient not taking: Reported on 03/23/2023) albuterol HFA (PROVENTIL HFA, VENTOLIN HFA) 90 mcg/actuation inhaler Inhale 2 puffs every 4 - 6 hours as needed for cough, wheezing, or shortness of breath benzonatate (TESSALON PERLE) 100 mg capsule Take 1 capsule by mouth three times a day as needed for cough. (Patient not taking: Reported on 03/23/2023) amphetamine-dextroamphetamine XR (ADDERALL XR) 20 mg 24 hr capsule Take 1 capsule by mouth once daily for 30 days. amphetamine-dextroamphetamine XR (ADDERALL XR) 20 mg 24 hr capsule Take 1 capsule by mouth once daily for 30 days. Do not start before August 06, 2022. amphetamine-dextroamphetamine XR (ADDERALL XR) 20 mg 24 hr capsule Take 1 capsule by mouth once daily for 30 days. FAMILY HISTORY Problem Relation Age of Onset other (osteopenia) Mother None Father None Brother Social History Social History Narrative Not on file Smoking Exposure: Do you spend a significant amount of time with anyone who smokes? No School: Presently in College. No academic or school related concerns No behavioral concerns Any concerns regarding peer interactions? No Recreational Screen Time totaling more than 2 hours of screen time per day. Physical Activity: 1 hour per day Fainting, dizziness, significant shortness of breath or chest pain with sports or exercise: no History of concussion in the last year: No Safety: 04/03/2021 Pediatric SDOH - Response to gun questions Are there any guns kept in or around your home or where your child spends time? No Reviewed seat belts, bike helmets, and smoke detectors Diet: -Diet is well balanced and appropriate for age -Fruits are eaten with most meals -Vegetables are eaten with most meals -Drinks water daily -Regularly eats meals with family Elimination: no concerns, normal size and consistency Dental: dental care current Sleep: -no sleep concerns Yes, cell phone turned off before bedtime- No Vision: No vision concerns Hearing: No hearing concerns Growth: No growth concerns Gynecological history: LMP: IUD Substance use: none Sexual History: Attraction: male Sexually Active: Yes Screening tools reviewed and discussed with patient/[id number] and Social Determinants of Health. Please see Patient Entered Data. SDOH: Food Insecurity: No Food Insecurity (06/07/2022) Hunger Vital Sign Worried About Running Out of Food in the Last Year: Never true Ran Out of Food in the Last Year: Never true Financial Resource Strain: Low Risk (06/07/2022) Overall Financial Resource Strain (CARDIA) Difficulty of Paying Living Expenses: Not hard at all Transportation Needs: No Transportation Needs (06/07/2022) PRAPARE - Transportation Lack of Transportation (Medical): No Lack of Transportation (Non-Medical): No Housing Stability: Low Risk (06/07/2022) Housing Stability Vital Sign Unable to Pay for Housing in the Last Year: No Number of Places Lived in the Last Year: 1 Unstable Housing in the Last Year: No Discussed SDOH results with patient/family. SDOH needs identified: no concerns identified OBJECTIVE Physical Exam: BP 110/66 Pulse 64 Temp 36.8 C (98.3 F) (Temporal) Resp 16 Ht 175.1 cm (5' 8.94) Wt 78.9 kg (174 lb) LMP 03/02/2023 BMI 25.74 kg/m Blood pressure %teresa are not available for patients who are 18 years or older. Blood pressure %teresa are not available for patients who are 18 years or older. 83 %ile (Z= 0.95) based on CDC (Girls, 2-20 Years) BMI-for-age based on BMI available as of 08/09/2023. Last BMI: Wt: 76.7 kg (169 lb) (92%, Z= 1.40)* BMI: 25.23 kg/(m^2) Last 4 Encounter Wt Readings: Date: Wt: 08/09/2023 78.9 kg (174 lb) (93%, Z= 1.49)* 03/23/2023 76.7 kg (169 lb) (92%, Z= 1.40)* 06/07/2022 76.6 kg (168 lb 12.8 oz) (93%, Z= 1.45)* 03/29/2022 76.5 kg (168 lb 11.2 oz) (93%, Z= 1.46)* Last 4 Encounter Ht Readings: Date: Ht: 08/09/2023 175.1 cm (5' 8.94) (97%, Z= 1.83)* 06/07/2022 174.3 cm (5' 8.62) (96%, Z= 1.72)* 04/28/2021 175.3 cm (5' 9) (97%, Z= 1.90)* 04/03/2021 173.8 cm (5' 8.43) (95%, Z= 1.68)* General: Well developed, No acute distress Head: normocephalic Eyes: conjunctivae/corneas clear Ears: TMs translucent bilaterally, normal landmarks noted Nose: no erythema or rhinorrhea Oropharynx: moist mucous membranes, no erythema or exudate Neck: supple, no adenopathy Spine: Back symmetric, no curvature. Resp: lungs clear to auscultation Heart: Normal rate, regular rhythm, no murmur Breast: deferred Abdomen: Soft, nontender, nondistended, no palpable organomegaly or masses, normal bowel sounds Genitalia: deferred Extremities: Full ROM and no swelling, erythema or tenderness Neuro: No focal deficits or abnormal findings present Skin: no rashes ASSESSMENT & PLAN Well 18yo ADHD - doing well on adderall xr 20mg daily and afternoon dose of adderall IR10mg prn 83 %ile (Z= 0.95) based on CDC (Girls, 2-20 Years) BMI-for-age based on BMI available as of 08/09/2023. Katelynn is healthy range (BMI 5th% - 84th%): -To maintain a healthy weight, discussed limiting screen time to less than 2 hours per day, physical activity for at least one hour per day, 5 servings of fruits and vegetables per day, 3 meals per day, family meals ar home and no sugar containing beverages Based on PHQ-9 Score: 1 and interview, presentation is not consistent with depression. - Discussed diet and safety. - Dental care discussed. - [employer] handout given (See Patient Instructions). - Patient was counseled [id number] by myself (the billing provider) for the following immunizations and vaccine components, including side effects: Men B. Patient consents for immunization and understands risks and benefits. A VIS sheet on each immunization was given to the patient. - Katelynn is Cleared for all sports without restriction. If conditions arise after the athlete has been cleared for participation the provider may rescind the medical eligibility. - Healthcare transition statement not discussed.. - Follow up in one year for routine physical. Fay Calderon MD documented in this encounter [facility] 07-04-2023 History of Present illness Narrative URI Acute Visit Chief Complaint Patient presents with Eye Pain Left eye pain x 2 days. States she does have allergies and thought that's why eye was itching and watering. This morning pain started. Describes pain as slightly achy and irritation. Denies FO in eye. HISTORY OF PRESENT ILLNESS Katelynn Bauer is a 18 y.o. who presents with with complaints of left eye pain and watering. No purulence or crusting. No fever chills or systemic symptoms. No cough or shortness of breath. Nasal congestion Treatments tried: ania ASSESSMENT: ICD-10-CM 1. Allergic eye reaction H57.9 PLAN: Add flonase, pataday eye drops. Note for class. Orders Placed This Encounter olopatadine 0.1 % Solution ophthalmic solution fluticasone 50 MCG/ACT Suspension nasal spray Patient Active Problem List Diagnosis Concussion without loss of consciousness Attention deficit hyperactivity disorder (ADHD) Allergic rhinitis due to animal hair and dander Seasonal allergic rhinitis due to pollen PHYSICAL EXAM: Blood pressure 118/84, pulse 77, temperature 97.7 F (36.5 C), temperature source Tympanic, resp. rate 16, height 1.753 m (5' 9), weight 74.8 kg (165 lb), SpO2 98%, not currently . GENERAL: alert, oriented and in no distress. HEENT: EYES: Pupils equal, round and reactive, mild left scleral erythema. MOUTH: moist and pink with no tonsillar exudates. mild erythema present NECK: supple, no anterior cervical LAD. EARS: Tympanic membranes clear bilaterally, ear canals clear bilaterally. nasal turbinate congestion. no sinus pressure to palpation. See above for Assessment and plan. Macario Rollins MD documented in this encounter [facility] 07-04-2023 Instructions Macario Rollins MD - 07/04/2023 10:20 AM EDT When you case picker the flonase prescription, please follow these instructions: The very first time you use the spray you'll need to squirt it into the air a few times to get the pump working. After that you can use it in your nose every time you use it. Each time you use the nose spray, shake the bottle very well before using it. Stand up and put your head down. (Point your nose to your toes.) Put the tip of the sprayer into your nostril, point it a little bit away from the middle of your nose, breathe in gently, and spray one time into your nose. Do NOT snort or sniff it strongly: This will suck the medicine into your throat where it will not help you. Move the tip of the sprayer into the other side of your nose and repeat steps 4&5. You should squirt a total of two squirts in each nostril once every day. documented in this encounter [facility] 06-23-2023 Miscellaneous Notes Patient's request for medication is as follows Requested Prescriptions Pending Prescriptions Disp Refills amphetamine-dextroamphetamine XR (ADDERALL XR) 20 mg capsule 30 capsule 0 Sig: Take 1 capsule by mouth once daily for 30 days. Order entered - please phone pharmacy and notify patient. Fay Calderon MD Last [facility]: 06-07-22 , next scheduled 07/2023 Last ADHD / Med Check visit: 06-07-22 Verify RX Benefits Completed Last medication refill date: 05-16-23 Requesting 30 day supply Retail pharmacy updated: Completed Patient aware RX will be sent to pharmacy. No need to notify patient. Health Maintenance due: Hepatitis C Screening Never done HIV Screening Never done Meningococcal B Vaccine: Consider Based On Risk(2 of 2 - Risk Bexsero 2-dose series) due on 07/05/2022 Behavioral Health Screening Never done Diana Davies RN documented in this encounter [facility] 05-16-2023 Miscellaneous Notes Patient's request for medication is as follows Requested Prescriptions Pending Prescriptions Disp Refills amphetamine-dextroamphetamine XR (ADDERALL XR) 20 mg capsule 30 capsule 0 Sig: Take 1 capsule by mouth once daily for 30 days. Order entered - please phone pharmacy and notify patient. Fay Calderon MD Last [facility]: 06/07/2022 - has appointment scheduled for 08/09/2023 Last ADHD / Med Check visit: 06/07/2022 Verify RX Benefits Completed Last medication refill date: 04/11/2023 Requesting 30 day supply Retail pharmacy updated: Completed Patient aware RX will be sent to pharmacy. No need to notify patient. Health Maintenance due: Hepatitis C Screening Never done HIV Screening Never done Meningococcal B Vaccine: Consider Based On Risk(2 of 2 - Risk Bexsero 2-dose series) due on 07/05/2022 Depression Assessment Never done Germain Posey RN documented in this encounter [facility] 04-25-2023 History of Present illness Narrative Chief Complaint Patient presents with Urinary Frequency Urinary frequency, urgency, and dysuria since last hs; denies fever, chills, N/V/hematuria or flank pain History of Present Illness Katelynn Bauer is a 18 y.o. patient here today requesting evaluation and mgt of urinary frequency, urgency and dysuria x <24 hours. Denies flank pain, fever, chills, or abnormal vaginal discharge or bleeding. Sexually active - reports last intercourse 04/22 - didn't urinate following intercourse. Remote hx of UTI - maybe once as a child Reports gets vaginal yeast infections when takes oral antibiotics. Review of Systems Gastrointestinal: Negative for abdominal distention, abdominal pain, nausea and vomiting. Genitourinary: Positive for dysuria, frequency and urgency. Negative for hematuria, pelvic pain, vaginal bleeding, vaginal discharge and vaginal pain. Skin: Negative for rash. Allergies Allergen Reactions *Seasonal Outpatient Medications Prior to Visit Medication Sig Dispense Refill amphetamine-dextroamphetamine XR 20 MG Cap SR 24HR capsule Take 1 capsule by mouth daily. Levonorgestrel 20 MCG/DAY 1 Intra Uterine Device by Intrauterine route Once. use as directed Fexofenadine (Ania Allergy) 180 MG tablet Take 1 tablet by mouth daily. Cetirizine 10 MG tablet Take by mouth daily as needed. (Patient not taking: Reported on 04/25/2023) No facility-administered medications prior to visit. Patient Active Problem List Diagnosis Concussion without loss of consciousness Attention deficit hyperactivity disorder (ADHD) Allergic rhinitis due to animal hair and dander Seasonal allergic rhinitis due to pollen Past Medical History: Diagnosis Date ADD (attention deficit disorder) Physical Exam BP 128/76 Pulse 84 Temp 98.3 F (36.8 C) Resp 18 Wt 77.6 kg (171 lb) BMI 25.25 kg/m Smoking Status Never Patient's last menstrual period was 04/02/2023. Physical Exam Vitals reviewed. Constitutional: General: She is not in acute distress. Appearance: Normal appearance. She is not ill-appearing. Abdominal: General: Abdomen is flat. There is no distension. Palpations: Abdomen is soft. Tenderness: There is no abdominal tenderness. There is no right CVA tenderness, left CVA tenderness, guarding or rebound. Skin: General: Skin is warm and dry. Neurological: Mental Status: She is alert and oriented to person, place, and time. Psychiatric: Mood and Affect: Mood normal. Behavior: Behavior normal. Assessment and Plan Katelynn was seen today for urinary frequency. Diagnoses and all orders for this visit: Urinary frequency - POCT URINE DIPSTICK AUTOMATED Acute cystitis without hematuria - Sulfamethoxazole-trimethoprim 800-160 MG per tablet; Take 1 tablet by mouth 2 times daily for 3 days. - Fluconazole (Diflucan) 150 MG tablet; Take 1 tablet by mouth once for 1 dose. - URINE CULTURE; Future - URINE CULTURE Dysuria Results for orders placed or performed in visit on 04/25/23 POCT URINE DIPSTICK AUTOMATED Result Value Ref Range POCT APPEARANCE, URINE cloudy POCT COLOR, URINE yellow POCT GLUCOSE, URINE neg mg/dL POCT BILIRUBIN, URINE neg POCT KETONES, URINE neg mg/dL POCT SPECIFIC GRAVITY, URINE 1.025 1.001 - 1.035 POCT BLOOD, URINE 3+ POCT PH, URINE 6.0 5 - 7 POCT PROTEIN, URINE trace mg/dL POCT UROBILINOGEN, URINE neg 0 - 2 E.U./dL POCT NITRITE, URINE neg POCT LEUKOCYTE, URINE 3+ POCT ESTERASE, URINE POCT BACTERIA, URINE POCT WBC, URINE POCT RBC, URINE POCT AMORPHOUS, URINE POCT CASTS, QUANTITATIVE, URINE POCT SQUAMOUS EPIS, URINE POCT RENAL EPIS, URINE POCT CRYSTALS, URINE POCT URINE COMMENTS, URINE POCT MICROSCOPIC Has IUD which causes intermittent spotting - reports currently having spotting - likely reason for blood in urine. Rx as above Follow-up 3 days prn persisting s/s. In the meantime if develops flank pain, vomiting, &/or fever is to notify us immediately and if after hours go to urgent care or ER. PVU. MARIA T Hayes [facility] documented in this encounter [facility] 02-07-2023 Miscellaneous Notes Pharmacy updated. Please review in AG absence. Requested Prescriptions Pending Prescriptions Disp Refills Desogestrel-Ethinyl Estradiol (ENSKYCE) 0.15-0.03 mg per tablet 112 tablet 5 VALERIE MILLER RN documented in this encounter [facility] 01-24-2023 Miscellaneous Notes Patient's request for medication is as follows Requested Prescriptions Pending Prescriptions Disp Refills amphetamine-dextroamphetamine XR (ADDERALL XR) 20 mg capsule 30 capsule 0 Sig: Take 1 capsule by mouth once daily for 30 days. Order entered - please phone pharmacy and notify patient. Fay Calderon MD Was off for the summer and started back up but needs a refill, advised need an appointment waiting to hear back on times that work best. Last well visit 06/07/2022. Patient phones requesting refills as follows: Requested Prescriptions Pending Prescriptions Disp Refills amphetamine-dextroamphetamine XR (ADDERALL XR) 20 mg capsule 30 capsule 0 Sig: Take 1 capsule by mouth once daily for 30 days. Please review and advise. Germain Posey RN documented in this encounter [facility] 01-07-2023 History of Present illness Narrative Chief Complaint Patient presents with Ear Pain Right ear pain since 01/03. Nasal Congestion Cough Pain Left side pain Katelynn Frichtl is a 17 y.o. female who presents today for evaluation of right ear pain since 01/03/2023. She has had nasal congestion, cough x 5 weeks. Took amoxicillin and pseudoephedrine that was prescribed on 12/20/2022. States that she feels significantly improved since then. Just wants to verify she doesn't have an ear infection. She is also concerned about pain to her left side. States she had a rugby game on Tuesday. No specific injury known. No rashes, ecchymosis, edema, erythema, lacerations noted to the area. Can pinpoint the area of pain to left rib area, between 8-10. Tender to touch. If she is at rest she doesn't notice the pain. Last night she states coughing, laughing, etc would increase the pain. Allergies Allergen Reactions *Seasonal Medical, surgical, family, and social history present and reviewed in chart. Review of Systems Constitutional: Negative for chills and fever. Respiratory: Negative for cough and shortness of breath. Cardiovascular: Negative for chest pain. Gastrointestinal: Negative for abdominal pain, nausea and vomiting. Genitourinary: Negative for dysuria, flank pain, frequency, genital sores and urgency. BP 128/80 Pulse 83 Temp 97.2 F (36.2 C) Resp 16 Wt 75.3 kg (166 lb 1.6 oz) SpO2 98% Smoking Status Never Physical Exam Constitutional: General: She is not in acute distress. Appearance: Normal appearance. She is not ill-appearing. HENT: Right Ear: Ear canal and external ear normal. A middle ear effusion (serous) is present. Tympanic membrane is not erythematous, retracted or bulging. Left Ear: Tympanic membrane, ear canal and external ear normal. Cardiovascular: Rate and Rhythm: Normal rate and regular rhythm. Pulmonary: Effort: Pulmonary effort is normal. Breath sounds: Normal breath sounds. Abdominal: Tenderness: There is no right CVA tenderness or left CVA tenderness. Musculoskeletal: Comments: Tenderness with palpation to left flank/rib area between ribs 8-10. No erythema, ecchymosis, edema, obvious deformity, laceration, rash noted to the area. Neurological: Mental Status: She is alert and oriented to person, place, and time. Psychiatric: Attention and Perception: Attention normal. Mood and Affect: Mood normal. Speech: Speech normal. Behavior: Behavior normal. Katelynn was seen today for ear pain, nasal congestion, cough and pain. Diagnoses and all orders for this visit: Dysfunction of right eustachian tube - fluticasone 50 MCG/ACT Suspension nasal spray; 2 sprays by Nasal route daily. Left flank pain Discussed use of Flonase, OTC ibuprofen PRN for right ear, and expected course of illness. No signs of infection on exam today. Left flank pain most consistent with MSK etiology. Pain is very localized, reproducible with palpation, and patient lacks urinary symptoms/abdominal symptoms/respiratory symptoms. Discussed icing area, OTC ibuprofen PRN, and expected course of healing. Patient advised to return to care if symptoms persist for 5-7 days or worsen. Patient also advised to seek urgent or emergent care if symptoms worsen and immediate care is needed. Patient verbalized understanding and agreed with the plan today. MARIA T Crow [facility] Family Medicine Laure documented in this encounter [facility] 01-07-2023 Instructions MARIA T Crow - 01/07/2023 9:40 AM EDT Please return to care if symptoms do not improve/resolve in the next 5-7 days or if symptoms worsen. documented in this encounter [facility] 12-28-2022 Miscellaneous Notes Diflucan ordered b/c pt has Sx of vaginal yeast infection and is taking antibiotics. Fay Calderon MD documented in this encounter [facility] 12-20-2022 History of Present illness Narrative Chief Complaint Patient presents with Cough Prolonged cough for about 3 weeks now. History of Present Illness Katelynn Bauer is a 17 y.o. patient here today requesting evaluation and mgt of Cough, nasal congestion, PND, SORE THROAT, and SOB w/ exertion x2.5 weeks. Reports seeing an outside provider on 12/13 via telehealth appt & was prescribed and albuterol inhaler which she reports using every for hours for the last 2-3 days. She reports she is tired of being sick, having more mucous, hard to sleep b/c of cough, and reports leaving class today b/c her cough was disruptive to the class. Review of Systems Constitutional: Negative for fatigue and fever. HENT: Positive for congestion, postnasal drip, rhinorrhea and sore throat. Negative for ear discharge, ear pain, mouth sores, trouble swallowing and voice change. Respiratory: Positive for cough and shortness of breath. Negative for wheezing. Gastrointestinal: Negative for diarrhea, nausea and vomiting. Skin: Negative for rash. Neurological: Negative for headaches. Allergies Allergen Reactions *Seasonal Outpatient Medications Prior to Visit Medication Sig Dispense Refill Albuterol 108 (90 Base) MCG/ACT Aero Soln inhaler Inhale 2 puffs every 4 - 6 hours as needed for cough, wheezing, or shortness of breath amphetamine-dextroamphetamine XR 20 MG Cap SR 24HR capsule Take 1 capsule by mouth daily. Cetirizine 10 MG tablet Take by mouth daily as needed. desogestrel-ethinyl estradiol (Enskyce) 0.15-30 MG-MCG tablet TAKE 1 TABLET BY MOUTH ONCE DAILY. FOR CONTINUOUS USE. No facility-administered medications prior to visit. There is no problem list on file for this patient. Past Medical History: Diagnosis Date ADD (attention deficit disorder) Physical Exam BP 128/88 Pulse 107 Temp 97.2 F (36.2 C) Resp 18 Wt 75.6 kg (166 lb 9.6 oz) SpO2 97% Smoking Status Never Patient's last menstrual period was 12/19/2022 (exact date). Physical Exam Constitutional: General: She is not in acute distress. Appearance: She is not toxic-appearing. HENT: Head: Normocephalic. Right Ear: Tympanic membrane and ear canal normal. Left Ear: Tympanic membrane and ear canal normal. Nose: Congestion and rhinorrhea present. Mouth/Throat: Pharynx: No oropharyngeal exudate or posterior oropharyngeal erythema. Eyes: Conjunctiva/sclera: Conjunctivae normal. Cardiovascular: Rate and Rhythm: Normal rate and regular rhythm. Heart sounds: No murmur heard. Pulmonary: Effort: Pulmonary effort is normal. No respiratory distress. Breath sounds: Normal breath sounds. No wheezing or rhonchi. Comments: No coughing heard during visit. Even with deep inspiration. Musculoskeletal: Cervical back: Normal range of motion. Lymphadenopathy: Cervical: No cervical adenopathy. Skin: General: Skin is warm and dry. Neurological: Mental Status: She is alert. Psychiatric: Mood and Affect: Mood normal. Behavior: Behavior normal. Assessment and Plan Katelynn was seen today for cough. Diagnoses and all orders for this visit: Acute upper respiratory infection - amoxicillin 875 MG tablet; Take 1 tablet by mouth every 12 hours for 10 days. One tablet PO bid - pseudoephedrine CR 120 MG Tab SR 12 HR tablet; Take 1 tablet by mouth 2 times daily as needed for Congestion (Take regularly for five days, then prn). No results found for this or any previous visit. Symptomatic Care advised, as well as recommend allowing for at least 8 hours of sleep/night, drink plenty of water and follow a well balance diet, as these measures will help your immune system, which in turns helps your body fight off infection. PVU. F/u 10 prn persisting s/s, in the meantime if current s/s worsen or new s/s develop is to be seen sooner. PVU. MARIA T Hayes [facility] [place] documented in this encounter [facility] 12-13-2022 History of Present illness Narrative DISTANCE HEALTH PEDIATRIC SICK VISIT Patient seen on [employer] video visit platform PCP: Fay Calderon MD I have communicated my name and active licensure. The patient's identity and physical location were verified at the time of this visit. Either the patient or their legal national account representative has been informed of the risks and benefits of -- and alternatives to -- treatment through a remote evaluation and consents to proceed with the evaluation remotely. Katelynn Bauer is a 17 year old who presents for a distance health visit with complaints of dry cough x 12 days which has worsened over the past few days. Additionally reports slight rhinorrhea and sore throat. Some nausea last night, but contributes that to the cold medicine she took. Reports difficulty sleeping due to cough and mild SOB. No fevers. No difficulty breathing. Patient endorses personal history of significant seasonal allergies. Denies personal or family history of eczema or asthma. 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) NO known COVID-19 exposure ACTIVE PROBLEM LIST Attention Deficit Hyperactivity Disorder (Adhd) - 01/08/2021 Concussion Without Loss of Consciousness - 05/08/2019 Comment: 05/30, 05/03 Seasonal Allergic Rhinitis Due to Pollen - 07/13/2016 Seasonal Allergic Rhinitis Due to Fungal Spores - 07/13/2016 Allergic Rhinitis Due to Animal Hair and Dander - 07/13/2016 Allergic rhinitis (md giorgio, tr, gr, we ,ra) - 05/01/2012 PAST MEDICAL HISTORY Diagnosis Date ADHD (attention deficit hyperactivity disorder) 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 Syncopal episodes 5x total ALLERGIES: ALLERGIES Allergen Reactions Lala Inhibitors Contraindication-Medical Surgical Avoid use of LALA inhibitors while patient is on subcutaneous allergy immunotherapy Beta Blockers [Beta* Contraindication-Medical Surgical Avoid use of beta blockers while patient is on subcutaneous allergy immunotherapy Environmental [Othe* Unknown Cats molds (May through January) trees (May, June and July) grasses (July and August) weeds (October, November and December) ragweed (October, November and December) MEDICATIONS: albuterol HFA (PROVENTIL HFA, VENTOLIN HFA) 90 mcg/actuation inhaler Inhale 2 puffs every 4 - 6 hours as needed for cough, wheezing, or shortness of breath amphetamine-dextroamphetamine XR (ADDERALL XR) 20 mg 24 hr capsule Take 1 capsule by mouth once daily for 30 days. amphetamine-dextroamphetamine XR (ADDERALL XR) 20 mg 24 hr capsule Take 1 capsule by mouth once daily for 30 days. amphetamine-dextroamphetamine XR (ADDERALL XR) 20 mg 24 hr capsule Take 1 capsule by mouth once daily for 30 days. Do not start before July 07, 2022. amphetamine-dextroamphetamine XR (ADDERALL XR) 20 mg 24 hr capsule Take 1 capsule by mouth once daily for 30 days. Do not start before August 06, 2022. benzonatate (TESSALON PERLE) 100 mg capsule Take 1 capsule by mouth three times a day as needed for cough. ENSKYCE 0.15-0.03 mg per tablet TAKE 1 TABLET BY MOUTH ONCE DAILY. FOR CONTINUOUS USE. Social history: Patient lives on campus at [facility] VIDEO EXAM: performed via video enabled technology General: Well developed, No acute distress Eyes: clear, no drainage, pupils equal Nose: no exudate OP: moist mucous membranes, no erythema or exudates appreciated Neck: Full ROM Lungs: nonlabored breathing, no audible wheezing, no retractions Skin: no rashes ASSESSMENT/PLAN: Encounter Diagnosis ICD-10-CM 1. Viral syndrome B34.9 - Discussed course of illness and contagiousness - Reviewed in detail limitations to virtual visit (unable to listen to lungs, cannot obtain O2 status, etc) - Albuterol inhaler ordered. Instructions on use provided - Tessalon perle 100 mg TID as needed for cough - Stressed importance of being seen in person at [facility] or local for any worsening symptoms. Patient verbalized her understanding - All questions answered - Follow up as needed Casandra Arellano PA-C documented in this encounter [facility] 06-22-2022 History of Present illness Narrative POPULATION HEALTH NAVIGATION OUTREACH Action/I RP OUTREACH: Contacted patient to schedule ALVIN Consult unable to leave voicemail Patient Identified by Name and : YES, via [email or web address] Outreach Outcome/Action Unable to reach patient: Left message Did you use a PCP flex slot to schedule this appointment? No Reason for Outreach Care Gap or Scheduling/Wellness visits Payer: Payor: [place] / Plan: BLUE ACCESS PPO / Product Type: PPO / Care Gap Reviewed:: ORQ Reminder: Reminder note to check Health Maintenance for items below Health Maintenance items due: GC (GONORRHEA) SCREENING (18-24) Never done HEPATITIS C SCREENING Never done HIV SCREENING Never done CHLAMYDIA SCREENING (18-24) Never done DEPRESSION ASSESSMENT Never done MENINGOCOCCAL B: Consider based on risk(2 of 2 - Risk Bexsero 2-dose series) due on 07/05/2022 Navigation Signature: Jaleel Ley June 22, 2022 4:22 PM documented in this encounter [facility] 06-07-2022 History of Present illness Narrative WELL VISIT PEDIATRIC 18+ YRS OLD SERVICE DATE: 06/07/2022 Katelynn is a 17 year old who presents today for well exam. 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 Syncopal episodes 5x total PAST SURGICAL HISTORY Procedure Laterality Date PAST SURGICAL HISTORY OF 07/2018 endoscopy TONSILLECTOMY & ADENOIDECTOMY <AGE 12 02/23/2010 T/A (under age 11 years) ALLERGIES Allergen Reactions Lala Inhibitors Contraindication-Medical Surgical Avoid use of LALA inhibitors while patient is on subcutaneous allergy immunotherapy Beta Blockers [Beta* Contraindication-Medical Surgical Avoid use of beta blockers while patient is on subcutaneous allergy immunotherapy Environmental [Othe* Unknown Cats molds (May through January) trees (May, June and July) grasses (July and August) weeds (October, November and December) ragweed (October, November and December) Medications: amphetamine-dextroamphetamine XR (ADDERALL XR) 20 mg 24 hr capsule Take 1 capsule by mouth once daily for 30 days. ENSKYCE 0.15-0.03 mg per tablet TAKE 1 TABLET BY MOUTH ONCE DAILY. FOR CONTINUOUS USE. EPINEPHrine (EPIPEN 2-CHEMA) 0.3 mg/0.3 mL auto-injector Inject 0.3 mL intramuscularly as needed (for allergic reaction.Seek emergent medical care immediately after use.Disp:one 2-pack w/corporate sales trainer). FAMILY HISTORY Problem Relation Age of Onset other (osteopenia) Mother None Father None Brother Social History Social History Narrative Not on file Smoking Exposure: Do you spend a significant amount of time with anyone who smokes? No School: Grade: 12th ; grades A. Physical Activity more than 1 hour of physical activity per day Screen Time totaling more than 2 hours of screen time per day. Safety: Pediatric SDOH - Response to gun questions 04/03/2021 Are there any guns kept in or around your home or where your child spends time? No Reviewed seat belts, bike helmets, and smoke detectors Diet: -Diet is well balanced and appropriate for age -Fruits and veggies are eaten with most meals -Drinks 2% milk -Drinks water daily -Regularly eats meals with family Elimination: no concerns, normal size and consistency Dental: dental care current Sleep: -no sleep concerns Yes, cell phone turned off before bedtime- No -computer in bedroom Vision: No vision concerns Hearing: No hearing concerns Growth: No growth concerns Gynecological history: LMP: 05/12/22 Cycles are irregular and last 5 days. Dysmenorrhea: mild Heavy periods: yes Substance use: none Sexual History: Attraction: male Sexually Active: No Body image: satisfactory Screening tools reviewed and discussed with patient/[id number] and Social Determinants of Health. Please see Patient Entered Data. Discussed SDOH results with patient/family. SDOH needs identified: no concerns identified OBJECTIVE Physical Exam: BP 120/80 Pulse 80 Temp 37.3 C (99.1 F) (Temporal) Resp 16 Ht 174.3 cm (5' 8.62) Wt 76.6 kg (168 lb 12.8 oz) LMP 05/12/2022 BMI 25.20 kg/m Blood pressure percentiles are not available for patients who are 18 years or older. Blood pressure percentiles are not available for patients who are 18 years or older. 82 %ile (Z= 0.93) based on CDC (Girls, 2-20 Years) BMI-for-age based on BMI available as of 06/07/2022. Last BMI: Wt: 76.5 kg (168 lb 11.2 oz) (93 %, Z= 1.46)* BMI: 24.91 kg/(m^2) Last 4 Encounter Wt Readings: Date: Wt: 03/29/2022 76.5 kg (168 lb 11.2 oz) (93 %, Z= 1.46)* 12/13/2021 75.4 kg (166 lb 3.2 oz) (92 %, Z= 1.43)* 11/23/2021 76.7 kg (169 lb 3.2 oz) (93 %, Z= 1.49)* 10/19/2021 77.1 kg (170 lb) (93 %, Z= 1.51)* Last 4 Encounter Ht Readings: Date: Ht: 04/28/2021 175.3 cm (5' 9) (97 %, Z= 1.90)* 04/03/2021 173.8 cm (5' 8.43) (95 %, Z= 1.68)* 01/29/2021 173.5 cm (5' 8.31) (95 %, Z= 1.64)* 01/08/2021 174 cm (5' 8.5) (96 %, Z= 1.72)* General: Well developed, No acute distress Head: normocephalic Eyes: conjunctivae/corneas clear Ears: normal external ear and canal, tympanic membranes with normal landmarks Nose: no erythema or rhinorrhea Oropharynx: moist mucous membranes, no erythema or exudate Neck: supple, no adenopathy Spine: Back symmetric, no curvature. Resp: lungs clear to auscultation Heart: RRR, normal S1 and S2. , No murmurs Breast: deferred Abdomen: Soft, nontender, nondistended, no palpable organomegaly or masses, normal bowel sounds Genitalia: deferred Extremities: Full ROM and no swelling, erythema or tenderness Neuro: No focal deficits or abnormal findings present Skin: no rashes ASSESSMENT & PLAN: Encounter Diagnosis ICD-10-CM 1. 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 Plan to f/u in [address] [place] [address] 82 %ile (Z= 0.93) based on CDC (Girls, 2-20 Years) BMI-for-age based on BMI available as of 06/07/2022. Katelynn is healthy range (BMI 5th% - 84th%): -To maintain a healthy weight, discussed limiting screen time to less than 2 hours per day, physical activity for at least one hour per day, 5 servings of fruits and vegetables per day, 3 meals per day, family meals ar home and no sugar containing beverages Depression Screening 10/19/2021 06/07/2022 PHQ-2 Score 0 0 PHQ-9 Score 0 0 ANDERSON-2 Total Score 0 - ANDERSON-7 Total Score 0 - Depression screening tool completed and reviewed. Based on score and interview, patient is not at risk for depression. Screening tool discussed with patient, and I recommended no further intervention at this time. - Discussed diet and safety. - Dental care discussed. - [employer] handout given (See Patient Instructions). - Patient was counseled [id number] by myself (the billing provider) for the following immunizations and vaccine components, including side effects: Men B. Patient consents for immunization and understands risks and benefits. A VIS sheet on each immunization was given to the patient. - Healthcare transition statement not discussed.. - Follow up in one year for routine physical. Fay Calderon MD SIGNATURE: Valerie Alanis LPN PATIENT NAME: Katelynn Bauer DATE: June 07, 2022 TIME: 1:31 PM documented in this encounter [facility] 03-29-2022 History of Present illness Narrative CONTRACEPTION Katelynn Bauer is a 17 year old who presents today for contraception. Patient's last menstrual period was 03/22/2022.. HPI: Dysmenorrhea Not on OCPS Heavy menses yes in past before was on menses Irregular menses some breakthrough bleeding but admits sometimes misses pills. For most part takes them continuously. Has not been sexually active in the past and no plans to be in immediate future but likes the idea of larc before she leaves for college SUBJECTIVE Sexually active: No Smoking No Last PAP Method of control: oral contraceptives satisfactory Methods tried previously: none Patient currently interested in: Mirena IUD Interested in in the next 3 years? No Date of last test: Not applicable Date of last STD testing? 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 Syncopal episodes 5x total PAST SURGICAL HISTORY Procedure Laterality Date PAST SURGICAL HISTORY OF 07/2018 endoscopy TONSILLECTOMY & ADENOIDECTOMY <AGE 11 02/23/2010 T/A (under age 11 years) FAMILY HISTORY Problem Relation Age of Onset other (osteopenia) Mother None Father None Brother SOCIAL HISTORY Social History Tobacco Use Smoking status: Never Smokeless tobacco: Never Vaping Use Vaping Use: Never used Substance Use Topics Alcohol use: No Drug use: No PAST SURGICAL HISTORY Procedure Laterality Date PAST SURGICAL HISTORY OF 07/2018 endoscopy TONSILLECTOMY & ADENOIDECTOMY <AGE 11 02/23/2010 T/A (under age 11 years) Current Outpatient Medications Medication Sig Desogestrel-Ethinyl Estradiol (ENSKYCE) 0.15-0.03 mg per tablet Take 1 tablet by mouth once daily. For continuous use. EPINEPHrine (EPIPEN 2-CHEMA) 0.3 mg/0.3 mL auto-injector Inject 0.3 mL intramuscularly as needed (for allergic reaction.Seek emergent medical care immediately after use.Disp:one 2-pack w/corporate sales trainer). Fexofenadine-Pseudoephedrine (ANIA-D 24 HOUR) 180-240 mg per 24 hr tablet Take 1 tablet by mouth once daily. amphetamine-dextroamphetamine XR (ADDERALL XR) 20 mg 24 hr capsule Take 1 capsule by mouth once daily for 30 days. amphetamine-dextroamphetamine XR (ADDERALL XR) 20 mg 24 hr capsule Take 1 capsule by mouth once daily for 30 days. Do not start before January 16, 2022. amphetamine-dextroamphetamine XR (ADDERALL XR) 20 mg 24 hr capsule Take 1 capsule by mouth once daily for 30 days. Do not start before February 15, 2022. dextroamphetamine-amphetamine (ADDERALL) 10 mg tablet Take 1 tablet by mouth once daily for 30 days. ketotifen fumarate (ZADITOR) 0.025 % (0.035 %) ophthalmic solution 1 Drop twice daily. No current facility-administered medications for this visit. Allergies As of Date: 03/29/2022 Allergen Noted Reaction LALA INHIBITORS 03/25/2016 Contraindication-Medical Surgical BETA BLOCKERS [BETA-BLOCKERS (BET*03/25/2016 Contraindication-Medical Surgical ENVIRONMENTAL [OTHER] 08/14/2011 Unknown Fully Assessed 03/29/2022 OBJECTIVE: General Appearance: Well appearing, alert, in no acute distress, well-hydrated, well nourished. ASSESSMENT/PLAN: contraceptive counseling Would like IUD- Kyleena vs Mirena depending on depth of uterine sound when she comes in. Will likely proceed w/ this next summer. For now wants to continue w/ OCPS All contraceptive options were discussed with the patient. R/B/A explained. All questions answered. Pt understands risks including but not limited to increased risk of breast cancer, blood clots and stroke. Counselled for (13) minutes face to face Follow up (when desires insertion) Taylor Márquez MD documented in this encounter [facility] 03-23-2022 History of Present illness Narrative VIRTUAL VISIT PROGRESS NOTE This is a virtual visit. It required patient-provider interaction for the medical decision making as documented below. Katelynn Bauer is a 17 year old female with a history of allergic rhinitis (cats, molds, trees, grasses, weeds, ragweed), cough and peanut allergy, now resolved, who presents for a follow-up visit. Her last visit was 07/24/19. She notes occasional mild nasal and ocular symptoms for which she takes Ania as needed with relief. She will still intermittently note hives on her arms near sites of prior injection administration. Hives are pruritic and resolve within a couple hours. Hives do not seem to be temporally related to her injections. She ingests peanuts infrequently as she previously developed stomach pain with peanut ingestion. She will occasionally take a bite of food containing peanut protein and tolerates this without adverse reaction. She began allergy immunotherapy on March 25, 2016 and reached the maintenance dose on 05/11/17. Nasal and ocular sxs have improved significantly since starting SCIT. She has been tolerating immunotherapy without systemic reaction. (From 01/01/16: This is a consultation requested by Dr. West for an allergy and immunology evaluation. My final recommendations will be communicated back to the requesting physician by way of shared medical record or letter to requesting physician via US mail. Katelynn Bauer is a 10 year old female with a history of peanut allergy, now resolved, who presents for further evaluation of inhalant allergies and cough. In the 2015, she developed significant cough that was awakening her from sleep every night. She also had shortness of breath. The sxs were present in June and August. Singulair 5 mg was prescribed which she took with resolution of symptoms. An albuterol inhaler was also prescribed but she did not fill this medication. She discontinued use of Singulair in late October and the cough has not recurred. Denies prior systemic corticosteroids, ER visits or hospitalizations for respiratory symptoms. She denies respiratory symptoms triggered by intense physical activity. No prior history of asthma. She also has a several year history of sneezing, nasal congestion, postnasal drip and itching eyes. Associated symptoms include epistaxis. These symptoms are seasonal occurring in the spring summer and fall. She has taken Zyrtec and Singulair with relief of symptoms. Remote use of fluticasone nasal spray. No prior allergy immunotherapy. She has a history of peanut allergy, now resolved. She does not routinely include peanuts in her diet as she complains of abdominal discomfort after ingesting peanuts. There are no cats in the home. REVIEW OF SYSTEMS: Negative for fevers, chills, night sweats and unintentional weight loss. Negative for cough, wheezing, chest tightness and shortness of breath. All other review of systems negative except for those listed above. 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 Syncopal episodes 5x total MEDICATIONS: amphetamine-dextroamphetamine XR (ADDERALL XR) 20 mg 24 hr capsule Take 1 capsule by mouth once daily for 30 days. amphetamine-dextroamphetamine XR (ADDERALL XR) 20 mg 24 hr capsule Take 1 capsule by mouth once daily for 30 days. Do not start before January 16, 2022. amphetamine-dextroamphetamine XR (ADDERALL XR) 20 mg 24 hr capsule Take 1 capsule by mouth once daily for 30 days. Do not start before February 15, 2022. dextroamphetamine-amphetamine (ADDERALL) 10 mg tablet Take 1 tablet by mouth once daily for 30 days. Desogestrel-Ethinyl Estradiol (ENSKYCE) 0.15-0.03 mg per tablet Take 1 tablet by mouth once daily. For continuous use. EPINEPHrine (EPIPEN 2-CHEMA) 0.3 mg/0.3 mL auto-injector Inject 0.3 mL intramuscularly as needed (for allergic reaction.Seek emergent medical care immediately after use.Disp:one 2-pack w/corporate sales trainer). Fexofenadine-Pseudoephedrine (ANIA-D 24 HOUR) 180-240 mg per 24 hr tablet Take 1 tablet by mouth once daily. ketotifen fumarate (ZADITOR) 0.025 % (0.035 %) ophthalmic solution 1 Drop twice daily. ALLERGIES: Allergies As of Date: 03/23/2022 Allergen Noted Reaction LALA INHIBITORS 03/25/2016 Contraindication-Medical Surgical BETA BLOCKERS [BETA-BLOCKERS (BET*03/25/2016 Contraindication-Medical Surgical ENVIRONMENTAL [OTHER] 08/14/2011 Unknown Fully Assessed 12/13/2021 PAST SURGICAL HISTORY Procedure Laterality Date PAST SURGICAL HISTORY OF 07/2018 endoscopy TONSILLECTOMY & ADENOIDECTOMY <AGE 12 02/23/2010 T/A (under age 11 years) IMMUNIZATIONS:Up to date DEVELOPMENT:Appropriate FAMILY HISTORY: Allergic rhinitis:yes: mom and MGM. Asthma: no. Eczema: yes: brother. Cystic fibrosis: no. Immunodeficiency: no. SOCIAL HISTORY:Lives with mother and father and brother. attends 6th grade. [employer] in [place]. ENVIRONMENTAL HISTORY:Lives in a house Age of home: 10 years Heating: gas Woodburning fireplace in the home: no Air conditioning: Central air Basement: Dry basement Rachel: Hardwood floor Dust mite controls: Dust mite controls are not in place. May be on pillow. Pets in the home: 1 dogs Outdoor animals: There are no outdoor animals Tobacco smoke: No exposure in the home. VIDEO EXAM: (if completed, performed via video enabled technology) GENERAL: alert and appropriate, in no distress, well-hydrated, well nourished and happy, smiling, interactive SKIN: no rash noted HEAD: normocephalic, no abnormality or lesion noted EYES: no injection and visual acuity is grossly normal EARS: external ears normal NOSE: external nose normal without rhinorrhea NECK: full ROM, no cervical LNs noted RESPIRATORY: breathing non-labored and no grunting/flaring/retractions NEUROLOGIC: no obvious deficit ALLERGY SKIN TESTS on January 01, 2016:Positive to cats, molds, trees, grasses, weeds, ragweed. ASSESSMENT/PLAN: 1.) Allergic Rhinoconjunctivitis Aggressive environmental controls Continue Ania 180 mg once daily as needed. Since she has been on the maintenance dose of subcutaneous allergy immunotherapy for 5 years, she may discontinue immunotherapy now or when her current vials are empty or . 2.) Discussed medication dosage, usage, side effects, and goals of treatment in detail. 3.) Follow-up in 12 months/PRN - patient will return sooner should new symptoms or problems arise. Noreen Mendoza MD documented in this encounter [facility] 03-23-2022 Nurse Note Patient reports good control of allergy symptoms with ania and scit. Patient would like to know when she can stop scit as she is going to college soon. documented in this encounter [facility] 03-18-2022 History of Present illness Narrative If patient has asthma, symptoms controlled: N/A Patient did not report a recent illness. Patient did not report a new blood pressure medications or asthma medication. Patient has their Epi pen with them, Yes Vial Content: TREES, GRASSES, WEEDS, RAGWEED Immunotherapy Order written on: 12-10-[address] Mendoza for Dr. Noreen Mendoza [phone] Concentration: 1:1 Dose: 0.4 ml SQ Arm: right upper arm (distal) Reaction after 30 minutes: pea size induration Patient instructed regarding immunotherapy. Also discussed signs and symptoms of local and systemic reactions. Patient instructed to wait 30 minutes after all allergy injections. Patient to make follow up appointment with ordering physician at 3 months, 6 months and yearly thereafter. Appointment line and nurses station number given as well as shot times at administrating location Nohemy Vermilya, RN documented in this encounter [facility] 03-03-2022 History of Present illness Narrative If patient has asthma, symptoms controlled: N/A Patient did not report a recent illness. Patient did not report a new blood pressure medications or asthma medication. Patient has their Epi pen with them, Yes Vial Content: TREES, GRASSES, WEEDS, RAGWEED Immunotherapy Order written on: 12-10-[address] M[address]za for Dr. Noreen Mendoza [phone] Concentration: 1:1 Dose: 0.4 ml SQ Arm: left upper arm (proximal) Reaction after 30 minutes: None Patient instructed regarding immunotherapy. Also discussed signs and symptoms of local and systemic reactions. Patient instructed to wait 30 minutes after all allergy injections. Patient to make follow up appointment with ordering physician at 3 months, 6 months and yearly thereafter. Appointment line and nurses station number given as well as shot times at administrating location Nohemy Sesay RN documented in this encounter [facility] 02-18-2022 History of Present illness Narrative If patient has asthma, symptoms controlled: N/A Patient did not report a recent illness. Patient did not report a new blood pressure medications or asthma medication. Patient has their Epi pen with them, Yes Vial Content: TREES, GRASSES, WEEDS, RAGWEED Immunotherapy Order written on: 12/10/[address] Mendoza for Dr. Noreen Mendoza [phone] Concentration: 1:1 Dose: 0.3 ml SQ Arm: right upper arm (distal) Reaction after 30 minutes: pea size induration Patient instructed regarding immunotherapy. Also discussed signs and symptoms of local and systemic reactions. Patient instructed to wait 30 minutes after all allergy injections. Patient to make follow up appointment with ordering physician at 3 months, 6 months and yearly thereafter. Appointment line and nurses station number given as well as shot times at administrating location Nohemy Sesay RN documented in this encounter [facility] 02-11-2022 Miscellaneous Notes spoke with mother and pharmacy via telephone, rx available at pharmacy Diana Davies RN documented in this encounter [facility] 01-14-2022 History of Present illness Narrative If patient has asthma, symptoms controlled: N/A Patient did not report a recent illness. Patient did not report a new blood pressure medications or asthma medication. Patient has their Epi pen with them, Yes Vial Content: TREES, GRASSES, WEEDS, RAGWEED Immunotherapy Order written on: 12-10-[address] M[address]za for Dr. Noreen Mendoza [phone] Concentration: 1:1 Dose: 0.35 ml SQ Arm: right upper arm (proximal) Reaction after 30 minutes: None Patient instructed regarding immunotherapy. Also discussed signs and symptoms of local and systemic reactions. Patient instructed to wait 30 minutes after all allergy injections. Patient to make follow up appointment with ordering physician at 3 months, 6 months and yearly thereafter. Appointment line and nurses station number given as well as shot times at administrating location Nohemy Sesay RN documented in this encounter [facility] 01-13-2022 Miscellaneous Notes Thanks Mitra! Is here vial in? We ordered them in Nov. Please schedule patient for injection appt. Inform her that she is overdue for her appt with Dr. Car GONZALEZ 07/24/2019 documented in this encounter [facility] 12-13-2021 History of Present illness Narrative This note was created using [employer]. Subjective Katelynn Bauer is a 16 year old female. HPI Patient presents with sore throat nasal congestion over the past day. She was exposed to COVID through her brother 4 days ago. No fever. No chest pain or shortness of breath. She has had some nausea. Mild cough. Her dad is sick with similar symptoms and here to be seen as well. She is vaccinated for COVID. Not had it previously. Review of Systems HENT: Positive for congestion and sore throat. Negative for ear pain. Respiratory: Positive for cough. Cardiovascular: Negative. Gastrointestinal: Positive for nausea. Negative for abdominal pain, diarrhea and vomiting. Musculoskeletal: Negative. Skin: Negative. Neurological: Positive for headaches. All other systems reviewed and are negative. 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 Syncopal episodes 5x total Current Outpatient Medications Medication Sig Dispense Refill amphetamine-dextroamphetamine XR (ADDERALL XR) 10 mg 24 hr capsule Take 1 capsule by mouth once daily for 30 days. 30 capsule 0 Desogestrel-Ethinyl Estradiol (ENSKYCE) 0.15-0.03 mg per tablet Take 1 tablet by mouth once daily. For continuous use. 112 tablet 5 EPINEPHrine (EPIPEN 2-CHEMA) 0.3 mg/0.3 mL auto-injector Inject 0.3 mL intramuscularly as needed (for allergic reaction.Seek emergent medical care immediately after use.Disp:one 2-pack w/corporate sales trainer). 1 Each 1 Fexofenadine-Pseudoephedrine (ANIA-D 24 HOUR) 180-240 mg per 24 hr tablet Take 1 tablet by mouth once daily. ketotifen fumarate (ZADITOR) 0.025 % (0.035 %) ophthalmic solution 1 Drop twice daily. dextroamphetamine-amphetamine (ADDERALL) 10 mg tablet Take 1 tablet by mouth once daily for 30 days. 30 tablet 0 No current facility-administered medications for this visit. PAST SURGICAL HISTORY Procedure Laterality Date PAST SURGICAL HISTORY OF 07/2018 endoscopy TONSILLECTOMY & ADENOIDECTOMY <AGE 11 02/23/2010 T/A (under age 11 years) FAMILY HISTORY Problem Relation Age of Onset other (osteopenia) Mother None Father None Brother Social History Tobacco Use Smoking status: Never Smokeless tobacco: Never Vaping Use Vaping Use: Never used Substance Use Topics Alcohol use: No Drug use: No Objective BP 116/64 Pulse 66 Temp 36.7 C (98 F) Resp 16 Wt 75.4 kg (166 lb 3.2 oz) LMP 10/16/2021 SpO2 98% Physical Exam Vitals reviewed. Constitutional: Appearance: Normal appearance. HENT: Head: Normocephalic and atraumatic. Right Ear: Tympanic membrane, ear canal and external ear normal. Left Ear: Tympanic membrane, ear canal and external ear normal. Nose: Congestion present. Mouth/Throat: Mouth: Mucous membranes are moist. Pharynx: Oropharynx is clear. Cardiovascular: Rate and Rhythm: Normal rate and regular rhythm. Heart sounds: Normal heart sounds. Pulmonary: Effort: Pulmonary effort is normal. Breath sounds: Normal breath sounds. Musculoskeletal: Cervical back: Neck supple. Skin: General: Skin is warm and dry. Neurological: Mental Status: She is alert. Assessment and Plan ASSESSMENT/PLAN: 1. Suspected COVID-19 virus infection - ICD9: V01.79, ICD10: Z20.822 COVID testing pending. Quarantine discussed. Red flags discussed for ER care. Supportive care discussed. All questions answered. Patient and dad agreeable with plan. - 2019 CORONAVIRUS Rika Huggins PA-C documented in this encounter [facility] 12-10-2021 Miscellaneous Notes Left detailed message on mom's voicemail. New IT extract ordered today. Patient's last visit with me was on July 24, 2019. She needs to be seen for a follow-up visit (in office or virtual) before any additional vials will be ordered. Noreen Mendoza MD documented in this encounter [facility] 12-09-2021 History of Present illness Narrative If patient has asthma, symptoms controlled: N/A Patient did not report a recent illness. Patient did not report a new blood pressure medications or asthma medication. Patient has their Epi pen with them, Yes Vial Content: TREES, GRASSES, WEEDS, RAGWEED Immunotherapy Order written on: 05-12-[address] Mendoza for Dr. Noreen Mendoza [phone] Concentration: 1:1 Dose: 0.5 ml SQ Arm: right upper arm (proximal) Reaction after 30 minutes: 25 cent induration Patient instructed regarding immunotherapy. Also discussed signs and symptoms of local and systemic reactions. Patient instructed to wait 30 minutes after all allergy injections. Patient to make follow up appointment with ordering physician at 3 months, 6 months and yearly thereafter. Appointment line and nurses station number given as well as shot times at administrating location Nohemy Sesay RN documented in this encounter [facility] 12-08-2021 Miscellaneous Notes Patient's request for medication is as follows Requested Prescriptions Pending Prescriptions Disp Refills amphetamine-dextroamphetamine XR (ADDERALL XR) 10 mg 24 hr capsule 30 capsule 0 Sig: Take 1 capsule by mouth once daily for 30 days. Order entered - please phone pharmacy and notify patient. Fay Calderon MD Last WCC: 04/03/21 Last ADHD / Med Check visit: 10/19/21 Verify RX Benefits Completed Last medication refill date: 10/19/21 Requesting 30 day supply Retail pharmacy updated: Completed Patient aware RX will be sent to pharmacy. No need to notify patient. Immunizations due: MENINGOCOCCAL B: Consider based on risk(1 of 2 - Risk Bexsero 2-dose series) Never done GC (GONORRHEA) SCREENING (<18) Never done CHLAMYDIA SCREENING (<18) Never done COVID-19 VACCINE(4 - Booster for Pfizer series) due on 04/20/2021 INFLUENZA(1) due on 11/12/2021 Jyotsna Gallardo RN documented in this encounter [facility] 11-26-2021 Miscellaneous Notes I wrote a letter for pt Fay Calderon MD Mother calling, patient just left PT and Janet thinks she just had a charley horse and it was the perfect storm with the illness coming on and the fever showing up a bit later. She has been cleared to play but Janet can't override the note that Dr. Calderon wrote having her stay out this week and she has a game at 7p and we were wondering if Dr. Calderon would clear her to play? Diana Davies RN documented in this encounter [facility] 11-23-2021 History of Present illness Narrative Patient brought in today by mother and father presents today with right muscular calf pain. This started 4 days ago during a soccer game. Katelynn reports she was feeling dehydrated and felt mild cramping in both calves. When she sprinted for the ball, she had acute onset of severe pain at her medial right calf. She reports it has improved by 70%. No bruising or erythema. Trying to keep right foot elevated. Able to walk on this leg, but it hurts a bit with flexion and full pressure on right leg. ROS Gen: no fever MS: see HPI GENERAL: alert and active in no apparent distress MUSCULOSKELETAL: mild to moderate tenderness along medial soleus muscle of right leg, no bruising/swelling/erythema, normal gait, able to stand on toes (but painful), normal perfusion to right foot ASSESSMENT: Right calf muscle strain PLAN: Refer to PT Fay Calderon MD documented in this encounter [facility] 11-21-2021 Miscellaneous Notes Is aware that EC is available or if sx worsen or change to call back and speak with a nurse or use ED. mother aware and verbalizes understanding Cherryle Keke RN Reason for Disposition Mild limp when walking Answer Assessment - Initial Assessment Questions 1. MECHANISM: How did the injury happen? (Suspect child abuse if the history is inconsistent with the child's age or the type of injury.) while sprinting at soccer on 2. WHEN: When did the injury happen? (Minutes or hours ago) 3. LOCATION: Where is the injury located? (upper leg, lower leg or foot) Which side? right calf 4. APPEARANCE of INJURY: What does the injury look like? looks normal 5. SEVERITY: Can your child put weight on the leg? Can he walk? yes 6. SIZE: For bruises or swelling, ask: How large is it? (Inches, centimeters or the entire joint) Tip: have caller compare it to the other side. denies any 7. PAIN: Is there pain? If so, ask: How bad is the pain? painful, still hobbles 8. TETANUS: For any breaks in the skin, ask: When was the last tetanus booster? n/a Protocols used: Leg [id number] documented in this encounter [facility] 11-18-2021 History of Present illness Narrative If patient has asthma, symptoms controlled: N/A Patient did not report a recent illness. Patient did not report a new blood pressure medications or asthma medication. Patient has their Epi pen with them, Yes Vial Content: TREES, GRASSES, WEEDS, RAGWEED Immunotherapy Order written on: 05-12-[address] Mendoza for Dr. Noreen Mendoza [phone] Concentration: 1:1 Dose: 0.4 ml SQ Arm: right upper arm (proximal) Reaction after 30 minutes: None Patient instructed regarding immunotherapy. Also discussed signs and symptoms of local and systemic reactions. Patient instructed to wait 30 minutes after all allergy injections. Patient to make follow up appointment with ordering physician at 3 months, 6 months and yearly thereafter. Appointment line and nurses station number given as well as shot times at administrating location Nohemy Sesay RN documented in this encounter [facility] 08-24-2022 History of Present illness Narrative If patient has asthma, symptoms controlled: N/A Patient did not report a recent illness. Patient did not report a new blood pressure medications or asthma medication. Patient has their Epi pen with them, Yes Vial Content: TREES, GRASSES, WEEDS, RAGWEED Immunotherapy Order written on: 05-12-[address] Mendoza for Dr. Noreen Mendoza [phone] Concentration: 1:1 Dose: 0.35 ml SQ Arm: left upper arm (proximal) Reaction after 30 minutes: 10 cent size induration Patient instructed regarding immunotherapy. Also discussed signs and symptoms of local and systemic reactions. Patient instructed to wait 30 minutes after all allergy injections. Patient to make follow up appointment with ordering physician at 3 months, 6 months and yearly thereafter. Appointment line and nurses station number given as well as shot times at administrating location Nohemy Sesay RN documented in this encounter [facility] 10-20-2021 History of Present illness Narrative FOLLOW UP VISIT PEDIATRIC ADHD SERVICE DATE: 10/20/2021 Katelynn Bauer is a 16 year old female who presents with mother for follow up visit for ADHD. History was obtained from: mother and patient Katelynn had been taking adderall xr 20mg during the school year, and reports this was adequately helpful. She took some time off her medication in the summer. When she took adderall xr 20mg again recently, she reports that she felt shaky and a bit anxious Has not seen her therapist recently. is going to be stressful between soccer, IB program and applying to colleges Parent/guardian believe room for improvement? 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 Syncopal episodes 5x total ROS/Screen for medication adverse effects: Abdominal pain: No Appetite problems: No Drowsiness: No Sleep problems: No Headaches: No PHYSICAL EXAM: BP 120/56 Pulse 80 Temp 36.8 C (98.2 F) (Temporal) Resp 16 Wt 77.1 kg (170 lb) LMP 10/16/2021 No height on file for this encounter. General: Well developed, No acute distress Neck: supple and no adenopathy Lungs: clear to auscultation bilaterally, good air exchange, no retractions Heart: Normal rate, regular rhythm, no murmur Assessment: 16 year old female with ADHD with optimization of symptoms while on 20mg dose, but with and with medication side effects. Plan: - take lower dose of adderall xr 10mg for 1-4 wks, and then transition to 20mg dose. Parent will let us know which dose pt wants to take (10mg vs 20mg) when she contacts us for the next refill SIGNATURE: Fay Calderon MD PATIENT NAME: Katelynn Bauer DATE: October 20, 2021 TIME: 3:07 PM documented in this encounter [facility] 10-15-2021 History of Present illness Narrative If patient has asthma, symptoms controlled: N/A Patient did not report a recent illness. Patient did not report a new blood pressure medications or asthma medication. Patient has their Epi pen with them, Yes Vial Content: TREES, GRASSES, WEEDS, RAGWEED Immunotherapy Order written on: 05-12-[address] M[address]za for Dr. Noreen Mendoza [phone] Concentration: 1:1 Dose: 0.35 ml SQ Arm: right upper arm (proximal) Reaction after 30 minutes: None Patient instructed regarding immunotherapy. Also discussed signs and symptoms of local and systemic reactions. Patient instructed to wait 30 minutes after all allergy injections. Patient to make follow up appointment with ordering physician at 3 months, 6 months and yearly thereafter. Appointment line and nurses station number given as well as shot times at administrating location Nohemy Sesay RN documented in this encounter [facility] 10-08-2021 History of Present illness Narrative If patient has asthma, symptoms controlled: N/A Patient did not report a recent illness. Patient did not report a new blood pressure medications or asthma medication. Patient has their Epi pen with them, Yes Vial Content: TREES, GRASSES, WEEDS, RAGWEED Immunotherapy Order written on: 05-12-[address] M[address]za for Dr. Noreen Mendoza [phone] Concentration: 1:1 Dose: 0.3 ml SQ Arm: left upper arm (proximal) Reaction after 30 minutes: 10 cent size induration Patient instructed regarding immunotherapy. Also discussed signs and symptoms of local and systemic reactions. Patient instructed to wait 30 minutes after all allergy injections. Patient to make follow up appointment with ordering physician at 3 months, 6 months and yearly thereafter. Appointment line and nurses station number given as well as shot times at administrating location Nohemy Sesay RN documented in this encounter [facility] 09-24-2021 History of Present illness Narrative CC: Knee Pain (woke up yesterday from a nap and felt a sharp pain in right knee - no known injury ) HPI: Ms. Katelynn Bauer is a 16 year old female who presents today as an initial visit with a chief complaint of right knee pain for the past 1 day NOT associated with known trauma or injury. She denies a pop , instability, clicking, catching, locking and swelling and does not report a prior injury to the knee. She describes the pain as acute and intermittent in duration and associated with activity. Prior treatments have included none. Did notice the discomfort this morning after practicing for soccer yesterday. 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 Syncopal episodes 5x total PAST SURGICAL HISTORY Procedure Laterality Date PAST SURGICAL HISTORY OF 07/2018 endoscopy TONSILLECTOMY & ADENOIDECTOMY <AGE 11 02/23/2010 T/A (under age 11 years) Current Outpatient Medications Medication Sig Dispense Refill Desogestrel-Ethinyl Estradiol (ENSKYCE) 0.15-0.03 mg per tablet Take 1 tablet by mouth once daily. For continuous use. 112 tablet 5 EPINEPHrine (EPIPEN 2-CHEMA) 0.3 mg/0.3 mL auto-injector Inject 0.3 mL intramuscularly as needed (for allergic reaction.Seek emergent medical care immediately after use.Disp:one 2-pack w/corporate sales trainer). 1 Each 1 Fexofenadine-Pseudoephedrine (ANIA-D 24 HOUR) 180-240 mg per 24 hr tablet Take 1 tablet by mouth once daily. amphetamine-dextroamphetamine XR (ADDERALL XR) 20 mg 24 hr capsule Take 1 capsule by mouth once daily for 30 days. 30 capsule 0 amphetamine-dextroamphetamine XR (ADDERALL XR) 20 mg 24 hr capsule Take 1 capsule by mouth once daily for 30 days. Do not start before May 23, 2021. 30 capsule 0 amphetamine-dextroamphetamine XR (ADDERALL XR) 20 mg 24 hr capsule Take 1 capsule by mouth once daily for 30 days. Do not start before June 22, 2021. 30 capsule 0 ketotifen fumarate (ZADITOR) 0.025 % (0.035 %) ophthalmic solution 1 Drop twice daily. (Patient not taking: Reported on 09/24/2021) Cetirizine (ZYRTEC) 10 mg cap Take by mouth as needed. (Patient not taking: Reported on 09/24/2021 ) No current facility-administered medications for this visit. ALLERGIES Allergen Reactions Lala Inhibitors Contraindication-Medical Surgical Avoid use of LALA inhibitors while patient is on subcutaneous allergy immunotherapy Beta Blockers [Beta* Contraindication-Medical Surgical Avoid use of beta blockers while patient is on subcutaneous allergy immunotherapy Environmental [Othe* Unknown Cats molds (May through January) trees (May, June and July) grasses (July and August) weeds (October, November and December) ragweed (October, November and December) FAMILY HISTORY Problem Relation Age of Onset other (osteopenia) Mother None Father None Brother Social History Tobacco Use Smoking status: Never Smoker Smokeless tobacco: Never Used Vaping Use Vaping Use: Never used Substance Use Topics Alcohol use: No Drug use: No Occupation: student Activity level: high school, sport/activity: soccer REVIEW OF SYSTEMS: GENERAL: Negative for malaise, significant weight loss, night sweats and fever Musculoskeletal: Patient denies any other joint complaints. Patient denies ipsilateral hip, thigh, ankle or foot pain PHYSICAL EXAM: General: Pulse 68 Temp 36.2 C (97.2 F) (Temporal) Resp 16 Wt 76.3 kg (168 lb 3.2 oz) LMP 09/17/2021 . She is alert and oriented x3. Ms. Bauer is a pleasant, well-appearing, well-nourished female who is of normal affect and mood. She is accompanied by her mother and father today Musculoskeletal Exam: Gait and Station WNL. Inspection: No evidence of eythema, warmth, bruising, abrasions, scars, swelling, atrophy or deformity about bilateral lower extremities. . No evidence of surgical incisions.. No evidence of muscular atrophy. Pelvis: stable HIPS Right Left ROM WNL WNL Lower Extremity: KNEE Right Left Effusion None None Skin intact intact ROM 0 -135 0 -135 Tenderness medial patellar facet and medial femoral epicondyle none Stability stable Kayce, posterior drawer and varus/valgus stress at 0 and 30 flexion stable Kayce, posterior drawer and varus/valgus stress at 0 and 30 flexion PATELLA Normal patellar mobility Normal patellar mobility CALF No calf tenderness, negative Reji exam and no palpable cords No calf tenderness, negative Reji exam and no palpable cords Neurologic Exam: Bilateral lower extremity medial leg and foot(L4), lateral leg and 1st web space(L5), lateral foot(S1) intact with sensation to light touch. Motor strength 5/5 with knee extension (L3), ankle dorsifexion (L4), EHL (L5) and ankle plantar flexion (S1). RADIOGRAPHS: I independently reviewed the right reviewed knee films. Radiology interpretation was also reviewed. Normal radiographs of the right knee IMPRESSION: Acute pain of right knee (primary encounter diagnosis): Patellofemoral pain syndrome versus plica syndrome PLAN: I discussed the radiographic and physical exam findings with the patient and the pathology as it relates to her current symptomatology. I educated the patient about conservative treatment. We have agreed on the following treatment plan: 1. Medication: Aleve 220 mg every 12 hours for the next 5 days. 2. Test(s)/Imaging/Referral(s): Non-operative Sports Medicine referral 3. Intervention: Rest for the next 3 to 5 days. Ice 4. Follow-up: If no resolution of her symptoms after ice, anti-inflammatories and several days of rest please contact the office. I have answered all of . Katelynn Bauer questions to her satisfaction. Matt Liang MD documented in this encounter [facility] 09-23-2021 History of Present illness Narrative If patient has asthma, symptoms controlled: N/A Patient did not report a recent illness. Patient did not report a new blood pressure medications or asthma medication. Patient has their Epi pen with them, Yes Vial Content: TREES, GRASSES, WEEDS, RAGWEED Immunotherapy Order written on: 05-12-[address] Mendoza for Dr. Noreen Mendoza [phone] Concentration: 1:1 Dose: 0.3 ml SQ Arm: right upper arm (proximal) Reaction after 30 minutes: 10 cent size induration Patient instructed regarding immunotherapy. Also discussed signs and symptoms of local and systemic reactions. Patient instructed to wait 30 minutes after all allergy injections. Patient to make follow up appointment with ordering physician at 3 months, 6 months and yearly thereafter. Appointment line and nurses station number given as well as shot times at administrating location Nohemy Sesay RN documented in this encounter [facility] 09-17-2021 History of Present illness Narrative Patient verified by name and date of . Patient reports that she took Ania at 11:00 am today. If patient has asthma, symptoms controlled: No Patient did not report a recent illness. Patient did not report a new blood pressure medications or asthma medication. Patient has their Epi pen with them, Yes Vial Content: TREES, GRASSES, WEEDS, RAGWEED Immunotherapy Order written on: 05/12/[address] Noreen Mendoza [phone] Concentration: 1:1 Dose: 0.25 ml SQ Arm: left upper arm (proximal) Reaction after 30 minutes: 5 cent size induration Patient instructed regarding immunotherapy. Also discussed signs and symptoms of local and systemic reactions. Patient instructed to wait 30 minutes after all allergy injections. Patient to make follow up appointment with ordering physician at 3 months, 6 months and yearly thereafter. Appointment line and nurses station number given as well as shot times at administrating location Mary Wood RN documented in this encounter [facility] 09-10-2021 History of Present illness Narrative If patient has asthma, symptoms controlled: N/A Patient did not report a recent illness. Patient did not report a new blood pressure medications or asthma medication. Patient has their Epi pen with them, Yes Vial Content: TREES, GRASSES, WEEDS, RAGWEED Immunotherapy Order written on: 05-12-[address] Mendoza for Dr. Noreen Mendoza [phone] Concentration: 1:1 Dose: 0.2 ml SQ Arm: right upper arm (distal) Reaction after 30 minutes: None Patient instructed regarding immunotherapy. Also discussed signs and symptoms of local and systemic reactions. Patient instructed to wait 30 minutes after all allergy injections. Patient to make follow up appointment with ordering physician at 3 months, 6 months and yearly thereafter. Appointment line and nurses station number given as well as shot times at administrating location Nohemy Sesay RN documented in this encounter [facility] 09-02-2021 History of Present illness Narrative If patient has asthma, symptoms controlled: N/A Patient did not report a recent illness. Patient did not report a new blood pressure medications or asthma medication. Patient has their Epi pen with them, Yes Vial Content: TREES, GRASSES, WEEDS, RAGWEED Immunotherapy Order written on: 05/12/[address] M[address]za for Dr[address] Noreen Mendoza [phone] Concentration: 1:1 Dose: 0.15 ml SQ Arm: left upper arm (proximal) Reaction after 30 minutes: None Patient instructed regarding immunotherapy. Also discussed signs and symptoms of local and systemic reactions. Patient instructed to wait 30 minutes after all allergy injections. Patient to make follow up appointment with ordering physician at 3 months, 6 months and yearly thereafter. Appointment line and nurses station number given as well as shot times at administrating location Nohemy Sesay RN documented in this encounter [facility] 08-05-2021 History of Present illness Narrative If patient has asthma, symptoms controlled: N/A Patient did not report a recent illness. Patient did not report a new blood pressure medications or asthma medication. Patient has their Epi pen with them, Yes Vial Content: TREES, GRASSES, WEEDS, RAGWEED Immunotherapy Order written on: 05-12-[address] M[address]za for Dr. Noreen Mendoza [phone] Concentration: 1:1 Dose: 0.25 ml SQ Arm: right upper arm (distal) Reaction after 30 minutes: 5 cent size induration Patient instructed regarding immunotherapy. Also discussed signs and symptoms of local and systemic reactions. Patient instructed to wait 30 minutes after all allergy injections. Patient to make follow up appointment with ordering physician at 3 months, 6 months and yearly thereafter. Appointment line and nurses station number given as well as shot times at administrating location Nohemy Sesay RN documented in this encounter [facility] 07-20-2021 Miscellaneous Notes Patient's request for medication is as follows Signed Prescriptions Disp Refills amphetamine-dextroamphetamine XR (ADDERALL XR) 20 mg 24 hr capsule 30 capsule 0 Sig: Take 1 capsule by mouth once daily for 30 days. PORTILLO Class: C-II MURTAZA: No Authorizing Provider: FAY CALDERON Order entered - please phone pharmacy and notify patient. Fay Calderon MD Last WCC: 04/03/2021 Last ADHD / Med Check visit: 04/03/2021 Verify RX Benefits Completed Last medication refill date: 06/22/2021 Requesting 30 day supply Retail pharmacy updated: Completed Patient aware RX will be sent to pharmacy. No need to notify patient. Immunizations due: MENINGOCOCCAL B: Consider based on risk(1 of 2 - Risk Bexsero 2-dose series) Never done GC (GONORRHEA) SCREENING (<18) Never done CHLAMYDIA SCREENING (<18) Never done Germain Posey RN documented in this encounter [facility] 07-09-2021 History of Present illness Narrative Images from the original note were not included. Subjective HPI HPI Katelynn Bauer is a 16 year old female who presents today for CC of left finger infection. This started 2 days ago. Has tried popping the blister. Symptoms are worsened by nothing. Risk factors had hang nail, also has been working in garden. Denies fever. 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 Syncopal episodes 5x total PAST SURGICAL HISTORY Procedure Laterality Date PAST SURGICAL HISTORY OF 07/2018 endoscopy TONSILLECTOMY & ADENOIDECTOMY <AGE 12 02/23/2010 T/A (under age 12 years) ALLERGIES Lala Inhibitors, Beta Blockers [Beta-Blockers (Beta-Adrenergic Blocking Agts)], and Environmental [Other] MEDICATIONS Desogestrel-Ethinyl Estradiol (ENSKYCE) 0.15-0.03 mg per tablet Take 1 tablet by mouth once daily. For continuous use. amphetamine-dextroamphetamine XR (ADDERALL XR) 20 mg 24 hr capsule Take 1 capsule by mouth once daily for 30 days. Do not start before June 22, 2021. EPINEPHrine (EPIPEN 2-CHEMA) 0.3 mg/0.3 mL auto-injector Inject 0.3 mL intramuscularly as needed (for allergic reaction.Seek emergent medical care immediately after use.Disp:one 2-pack w/corporate sales trainer). Fexofenadine-Pseudoephedrine (ANIA-D 24 HOUR) 180-240 mg per 24 hr tablet Take 1 tablet by mouth once daily. ketotifen fumarate (ZADITOR) 0.025 % (0.035 %) ophthalmic solution 1 Drop twice daily. Cetirizine (ZYRTEC) 10 mg cap Take by mouth as needed. cephALEXin (KEFLEX) 500 mg capsule Take 1 capsule by mouth three times daily for 7 days. mupirocin (BACTROBAN) 2 % ointment Apply to affected area three times daily for 10 days. amphetamine-dextroamphetamine XR (ADDERALL XR) 20 mg 24 hr capsule Take 1 capsule by mouth once daily for 30 days. amphetamine-dextroamphetamine XR (ADDERALL XR) 20 mg 24 hr capsule Take 1 capsule by mouth once daily for 30 days. Do not start before May 23, 2021. FAMILY HISTORY Problem Relation Age of Onset other (osteopenia) Mother None Father None Brother Social History Tobacco Use Smoking status: Never Smoker Smokeless tobacco: Never Used Vaping Use Vaping Use: Never used Substance Use Topics Alcohol use: No Drug use: No ROS Objective Blood pressure 122/68, pulse 66, temperature 36.4 C (97.6 F), resp. rate 14, weight 70.9 kg (156 lb 3.2 oz), last menstrual period 04/20/2021, SpO2 100 %. Physical Exam Constitutional: General: She is not in acute distress. Appearance: She is not toxic-appearing or diaphoretic. HENT: Head: Normocephalic and atraumatic. Pulmonary: Effort: Pulmonary effort is normal. No accessory muscle usage or respiratory distress. Musculoskeletal: Hands: Neurological: Mental Status: She is alert and oriented to person, place, and time. ASSESSMENT/PLAN: 1. Acute paronychia of finger of left hand - ICD9: 681.02, ICD10: L03.012 - Begin treatment with Cephalaxin (Keflex) - No lymphangetic streaking, this was defined for patient to watch for and to seek medical care immediately if appears Keep clean and covered. F/u if persist/worsen/change. - CEPHALEXIN 500 MG CAPSULE - MUPIROCIN 2 % TOPICAL OINTMENT Agrees to plan Wilfredo Chung APRN.NUHA documented in this encounter [facility] 07-08-2021 History of Present illness Narrative If patient has asthma, symptoms controlled: N/A Patient did not report a recent illness. Patient did not report a new blood pressure medications or asthma medication. Patient has their Epi pen with them, Yes Vial Content: TREES, GRASSES, WEEDS, RAGWEED Immunotherapy Order written on: 05/12/[address] Mendoza for Dr. Noreen Mendoza [phone] Concentration: 1:1 Dose: 0.3 ml SQ Arm: left upper arm (proximal) Reaction after 30 minutes: 10 cent size induration Patient instructed regarding immunotherapy. Also discussed signs and symptoms of local and systemic reactions. Patient instructed to wait 30 minutes after all allergy injections. Patient to make follow up appointment with ordering physician at 3 months, 6 months and yearly thereafter. Appointment line and nurses station number given as well as shot times at administrating location Nohemy Sesay RN documented in this encounter [facility] 07-01-2021 History of Present illness Narrative If patient has asthma, symptoms controlled: N/A Patient did not report a recent illness. Patient did not report a new blood pressure medications or asthma medication. Patient has their Epi pen with them, Yes Vial Content: TREES, GRASSES, WEEDS, RAGWEED Immunotherapy Order written on: 05-12-[address] Mendoza for Dr. Noreen Mendoza [phone] Concentration: 1:1 Dose: 0.25 ml SQ Arm: right upper arm (distal) Reaction after 30 minutes: pea size induration Patient instructed regarding immunotherapy. Also discussed signs and symptoms of local and systemic reactions. Patient instructed to wait 30 minutes after all allergy injections. Patient to make follow up appointment with ordering physician at 3 months, 6 months and yearly thereafter. Appointment line and nurses station number given as well as shot times at administrating location Nohemy Sesay RN documented in this encounter [facility] 02-01-2019 History of Past i llness Narrative Problem Noted Date Resolved Date Gluten intolerance 02/01/2019 04/03/2021 Overview: TTG suggested possible celiac, but endoscopy was neg. GI recommended rechecking at 15yo if Katelynn wants to know if she truly has celiac. Ligamentous laxity of ankle 06/04/201301/13 Acute atopic conjunctivitis 05/01/201201/13 Verruca 09/18/2010 02/01/2019 Obstructive sleep apnea 11/24/2009 11/25/19 10 Syncopes, vasovagal 07/29/2009 02/01/2019 documented as of this encounter (statuses as of 07/01/2021) [facility] History of Past illness Narrative* Problem Noted Date Resolved Date Gluten intolerance 02/01/2019 04/03/2021 Overview: TTG suggested possible celiac, but endoscopy was neg. GI recommended rechecking at 15yo if Katelynn wants to know if she truly has celiac. Ligamentous laxity of ankle 06/04/201301/13 Acute atopic conjunctivitis 05/01/201201/13 Verruca 09/18/2010 02/01/2019 Obstructive sleep apnea 11/24/2009 11/25/19 10 Syncopes, vasovagal 07/29/2009 02/01/2019 documented as of this encounter (statuses as of 07/08/2021) [facility] History of Past illness Narrative* Problem Noted Date Resolved Date Gluten intolerance 02/01/2019 04/03/2021 Overview: TTG suggested possible celiac, but endoscopy was neg. GI recommended rechecking at 15yo if Katelynn wants to know if she truly has celiac. Ligamentous laxity of ankle 06/04/201301/13 Acute atopic conjunctivitis 05/01/201201/13 Verruca 09/18/2010 02/01/2019 Obstructive sleep apnea 11/24/2009 11/25/19 10 Syncopes, vasovagal 07/29/2009 02/01/2019 documented as of this encounter (statuses as of 07/09/2021) [facility] History of Past illness Narrative* Problem Noted Date Resolved Date Gluten intolerance 02/01/2019 04/03/2021 Overview: TTG suggested possible celiac, but endoscopy was neg. GI recommended rechecking at 15yo if Katelynn wants to know if she truly has celiac. Ligamentous laxity of ankle 06/04/201301/13 Acute atopic conjunctivitis 05/01/201201/13 Verruca 09/18/2010 02/01/2019 Obstructive sleep apnea 11/24/2009 11/25/19 10 Syncopes, vasovagal 07/29/2009 02/01/2019 documented as of this encounter (statuses as of 07/20/2021) [facility] History of Past illness Narrative* Problem Noted Date Resolved Date Gluten intolerance 02/01/2019 04/03/2021 Overview: TTG suggested possible celiac, but endoscopy was neg. GI recommended rechecking at 15yo if Katelynn wants to know if she truly has celiac. Ligamentous laxity of ankle 06/04/201301/13 Acute atopic conjunctivitis 05/01/201201/13 Verruca 09/18/2010 02/01/2019 Obstructive sleep apnea 11/24/2009 11/25/19 10 Syncopes, vasovagal 07/29/2009 02/01/2019 documented as of this encounter (statuses as of 08/05/2021) [facility] History of Past illness Narrative* Problem Noted Date Resolved Date Gluten intolerance 02/01/2019 04/03/2021 Overview: TTG suggested possible celiac, but endoscopy was neg. GI recommended rechecking at 15yo if Katelynn wants to know if she truly has celiac. Ligamentous laxity of ankle 06/04/201301/13 Acute atopic conjunctivitis 05/01/201201/13 Verruca 09/18/2010 02/01/2019 Obstructive sleep apnea 11/24/2009 11/25/19 10 Syncopes, vasovagal 07/29/2009 02/01/2019 documented as of this encounter (statuses as of 09/02/2021) [facility] History of Past illness Narrative* Problem Noted Date Resolved Date Gluten intolerance 02/01/2019 04/03/2021 Overview: TTG suggested possible celiac, but endoscopy was neg. GI recommended rechecking at 15yo if Katelynn wants to know if she truly has celiac. Ligamentous laxity of ankle 06/04/201301/13 Acute atopic conjunctivitis 05/01/201201/13 Verruca 09/18/2010 02/01/2019 Obstructive sleep apnea 11/24/2009 11/25/19 10 Syncopes, vasovagal 07/29/2009 02/01/2019 documented as of this encounter (statuses as of 09/10/2021) [facility] History of Past illness Narrative* Problem Noted Date Resolved Date Gluten intolerance 02/01/2019 04/03/2021 Overview: TTG suggested possible celiac, but endoscopy was neg. GI recommended rechecking at 15yo if Katelynn wants to know if she truly has celiac. Ligamentous laxity of ankle 06/04/201301/13 Acute atopic conjunctivitis 05/01/201201/13 Verruca 09/18/2010 02/01/2019 Obstructive sleep apnea 11/24/2009 11/25/19 10 Syncopes, vasovagal 07/29/2009 02/01/2019 documented as of this encounter (statuses as of 09/17/2021) [facility] History of Past illness Narrative* Problem Noted Date Resolved Date Gluten intolerance 02/01/2019 04/03/2021 Overview: TTG suggested possible celiac, but endoscopy was neg. GI recommended rechecking at 15yo if Katelynn wants to know if she truly has celiac. Ligamentous laxity of ankle 06/04/201301/13 Acute atopic conjunctivitis 05/01/201201/13 Verruca 09/18/2010 02/01/2019 Obstructive sleep apnea 11/24/2009 11/25/19 10 Syncopes, vasovagal 07/29/2009 02/01/2019 documented as of this encounter (statuses as of 09/23/2021) [facility] History of Past illness Narrative* Problem Noted Date Resolved Date Gluten intolerance 02/01/2019 04/03/2021 Overview: TTG suggested possible celiac, but endoscopy was neg. GI recommended rechecking at 15yo if Katelynn wants to know if she truly has celiac. Ligamentous laxity of ankle 06/04/201301/13 Acute atopic conjunctivitis 05/01/201201/13 Verruca 09/18/2010 02/01/2019 Obstructive sleep apnea 11/24/2009 11/25/19 10 Syncopes, vasovagal 07/29/2009 02/01/2019 documented as of this encounter (statuses as of 09/30/2021) [facility] History of Past illness Narrative* Problem Noted Date Resolved Date Gluten intolerance 02/01/2019 04/03/2021 Overview: TTG suggested possible celiac, but endoscopy was neg. GI recommended rechecking at 15yo if Katelynn wants to know if she truly has celiac. Ligamentous laxity of ankle 06/04/201301/13 Acute atopic conjunctivitis 05/01/201201/13 Verruca 09/18/2010 02/01/2019 Obstructive sleep apnea 11/24/2009 11/25/19 10 Syncopes, vasovagal 07/29/2009 02/01/2019 documented as of this encounter (statuses as of 10/08/2021) [facility] History of Past illness Narrative* Problem Noted Date Resolved Date Gluten intolerance 02/01/2019 04/03/2021 Overview: TTG suggested possible celiac, but endoscopy was neg. GI recommended rechecking at 15yo if Katelynn wants to know if she truly has celiac. Ligamentous laxity of ankle 06/04/201301/13 Acute atopic conjunctivitis 05/01/201201/13 Verruca 09/18/2010 02/01/2019 Obstructive sleep apnea 11/24/2009 11/25/19 10 Syncopes, vasovagal 07/29/2009 02/01/2019 documented as of this encounter (statuses as of 10/15/2021) [facility] of Past illness Narrative* Problem Noted Date Resolved Date Gluten intolerance 02/01/2019 04/03/2021 Overview: TTG suggested possible celiac, but endoscopy was neg. GI recommended rechecking at 15yo if Katelynn wants to know if she truly has celiac. Ligamentous laxity of ankle 06/04/201301/13 Acute atopic conjunctivitis 05/01/201201/13 Verruca 09/18/2010 02/01/2019 Obstructive sleep apnea 11/24/2009 11/25/19 10 Syncopes, vasovagal 07/29/2009 02/01/2019 documented as of this encounter (statuses as of 10/15/2021) [facility] of Past illness Narrative* Problem Noted Date Resolved Date Gluten intolerance 02/01/2019 04/03/2021 Overview: TTG suggested possible celiac, but endoscopy was neg. GI recommended rechecking at 15yo if Katelynn wants to know if she truly has celiac. Ligamentous laxity of ankle 06/04/201301/13 Acute atopic conjunctivitis 05/01/201201/13 Verruca 09/18/2010 02/01/2019 Obstructive sleep apnea 11/24/2009 11/25/19 10 Syncopes, vasovagal 07/29/2009 02/01/2019 documented as of this encounter (statuses as of 10/20/2021) [facility] of Past illness Narrative* Problem Noted Date Resolved Date Gluten intolerance 02/01/2019 04/03/2021 Overview: TTG suggested possible celiac, but endoscopy was neg. GI recommended rechecking at 15yo if Katelynn wants to know if she truly has celiac. Ligamentous laxity of ankle 06/04/201301/13 Acute atopic conjunctivitis 05/01/201201/13 Verruca 09/18/2010 02/01/2019 Obstructive sleep apnea 11/24/2009 11/25/19 10 Syncopes, vasovagal 07/29/2009 02/01/2019 documented as of this encounter (statuses as of 11/04/2021) [facility] of Past illness Narrative* Problem Noted Date Resolved Date Gluten intolerance 02/01/2019 04/03/2021 Overview: TTG suggested possible celiac, but endoscopy was neg. GI recommended rechecking at 15yo if Katelynn wants to know if she truly has celiac. Ligamentous laxity of ankle 06/04/201301/13 Acute atopic conjunctivitis 05/01/201201/13 Verruca 09/18/2010 02/01/2019 Obstructive sleep apnea 11/24/2009 11/25/19 10 Syncopes, vasovagal 07/29/2009 02/01/2019 documented as of this encounter (statuses as of 11/18/2021) [facility] of Past illness Narrative* Problem Noted Date Resolved Date Gluten intolerance 02/01/2019 04/03/2021 Overview: TTG suggested possible celiac, but endoscopy was neg. GI recommended rechecking at 15yo if Katelynn wants to know if she truly has celiac. Ligamentous laxity of ankle 06/04/201301/13 Acute atopic conjunctivitis 05/01/201201/13 Verruca 09/18/2010 02/01/2019 Obstructive sleep apnea 11/24/2009 11/25/19 10 Syncopes, vasovagal 07/29/2009 02/01/2019 documented as of this encounter (statuses as of 11/21/2021) [facility] of Past illness Narrative* Problem Noted Date Resolved Date Gluten intolerance 02/01/2019 04/03/2021 Overview: TTG suggested possible celiac, but endoscopy was neg. GI recommended rechecking at 15yo if Katelynn wants to know if she truly has celiac. Ligamentous laxity of ankle 06/04/201301/13 Acute atopic conjunctivitis 05/01/201201/13 Verruca 09/18/2010 02/01/2019 Obstructive sleep apnea 11/24/2009 11/25/19 10 Syncopes, vasovagal 07/29/2009 02/01/2019 documented as of this encounter (statuses as of 11/23/2021) [facility] of Past illness Narrative* Problem Noted Date Resolved Date Gluten intolerance 02/01/2019 04/03/2021 Overview: TTG suggested possible celiac, but endoscopy was neg. GI recommended rechecking at 15yo if Katelynn wants to know if she truly has celiac. Ligamentous laxity of ankle 06/04/201301/13 Acute atopic conjunctivitis 05/01/201201/13 Verruca 09/18/2010 02/01/2019 Obstructive sleep apnea 11/24/2009 11/25/19 10 Syncopes, vasovagal 07/29/2009 02/01/2019 documented as of this encounter (statuses as of 11/24/2021) [facility] of Past illness Narrative* Problem Noted Date Resolved Date Gluten intolerance 02/01/2019 04/03/2021 Overview: TTG suggested possible celiac, but endoscopy was neg. GI recommended rechecking at 15yo if Katelynn wants to know if she truly has celiac. Ligamentous laxity of ankle 06/04/201301/13 Acute atopic conjunctivitis 05/01/201201/13 Verruca 09/18/2010 02/01/2019 Obstructive sleep apnea 11/24/2009 11/25/19 10 Syncopes, vasovagal 07/29/2009 02/01/2019 documented as of this encounter (statuses as of 11/26/2021) [facility] of Past illness Narrative* Problem Noted Date Resolved Date Gluten intolerance 02/01/2019 04/03/2021 Overview: TTG suggested possible celiac, but endoscopy was neg. GI recommended rechecking at 15yo if Katelynn wants to know if she truly has celiac. Ligamentous laxity of ankle 06/04/201301/13 Acute atopic conjunctivitis 05/01/201201/13 Verruca 09/18/2010 02/01/2019 Obstructive sleep apnea 11/24/2009 11/25/19 10 Syncopes, vasovagal 07/29/2009 02/01/2019 documented as of this encounter (statuses as of 12/08/2021) [facility] History of Past illness Narrative* Problem Noted Date Resolved Date Gluten intolerance 02/01/2019 04/03/2021 Overview: TTG suggested possible celiac, but endoscopy was neg. GI recommended rechecking at 15yo if Katelynn wants to know if she truly has celiac. Ligamentous laxity of ankle 06/04/201301/13 Acute atopic conjunctivitis 05/01/201201/13 Verruca 09/18/2010 02/01/2019 Obstructive sleep apnea 11/24/2009 11/25/19 10 Syncopes, vasovagal 07/29/2009 02/01/2019 documented as of this encounter (statuses as of 12/09/2021) [facility] History of Past illness Narrative* Problem Noted Date Resolved Date Gluten intolerance 02/01/2019 04/03/2021 Overview: TTG suggested possible celiac, but endoscopy was neg. GI recommended rechecking at 15yo if Katelynn wants to know if she truly has celiac. Ligamentous laxity of ankle 06/04/201301/13 Acute atopic conjunctivitis 05/01/201201/13 Verruca 09/18/2010 02/01/2019 Obstructive sleep apnea 11/24/2009 11/25/19 10 Syncopes, vasovagal 07/29/2009 02/01/2019 documented as of this encounter (statuses as of 12/10/2021) [facility] History of Past illness Narrative* Problem Noted Date Resolved Date Gluten intolerance 02/01/2019 04/03/2021 Overview: TTG suggested possible celiac, but endoscopy was neg. GI recommended rechecking at 15yo if Katelynn wants to know if she truly has celiac. Ligamentous laxity of ankle 06/04/201301/13 Acute atopic conjunctivitis 05/01/201201/13 Verruca 09/18/2010 02/01/2019 Obstructive sleep apnea 11/24/2009 11/25/19 10 Syncopes, vasovagal 07/29/2009 02/01/2019 documented as of this encounter (statuses as of 12/13/2021) [facility] History of Past illness Narrative* Problem Noted Date Resolved Date Gluten intolerance 02/01/2019 04/03/2021 Overview: TTG suggested possible celiac, but endoscopy was neg. GI recommended rechecking at 15yo if Katelynn wants to know if she truly has celiac. Ligamentous laxity of ankle 06/04/201301/13 Acute atopic conjunctivitis 05/01/201201/13 Verruca 09/18/2010 02/01/2019 Obstructive sleep apnea 11/24/2009 11/25/19 10 Syncopes, vasovagal 07/29/2009 02/01/2019 documented as of this encounter (statuses as of 12/17/2021) [facility] History of Past illness Narrative* Problem Noted Date Resolved Date Gluten intolerance 02/01/2019 04/03/2021 Overview: TTG suggested possible celiac, but endoscopy was neg. GI recommended rechecking at 15yo if Katelynn wants to know if she truly has celiac. Ligamentous laxity of ankle 06/04/201301/13 Acute atopic conjunctivitis 05/01/201201/13 Verruca 09/18/2010 02/01/2019 Obstructive sleep apnea 11/24/2009 11/25/19 10 Syncopes, vasovagal 07/29/2009 02/01/2019 documented as of this encounter (statuses as of 01/13/2022) [facility] History of Past illness Narrative* Problem Noted Date Resolved Date Gluten intolerance 02/01/2019 04/03/2021 Overview: TTG suggested possible celiac, but endoscopy was neg. GI recommended rechecking at 15yo if Katelynn wants to know if she truly has celiac. Ligamentous laxity of ankle 06/04/201301/13 Acute atopic conjunctivitis 05/01/201201/13 Verruca 09/18/2010 02/01/2019 Obstructive sleep apnea 11/24/2009 11/25/19 10 Syncopes, vasovagal 07/29/2009 02/01/2019 documented as of this encounter (statuses as of 01/14/2022) [facility] History of Past illness Narrative* Problem Noted Date Resolved Date Gluten intolerance 02/01/2019 04/03/2021 Overview: TTG suggested possible celiac, but endoscopy was neg. GI recommended rechecking at 15yo if Katelynn wants to know if she truly has celiac. Ligamentous laxity of ankle 06/04/201301/13 Acute atopic conjunctivitis 05/01/201201/13 Verruca 09/18/2010 02/01/2019 Obstructive sleep apnea 11/24/2009 11/25/19 10 Syncopes, vasovagal 07/29/2009 02/01/2019 documented as of this encounter (statuses as of 01/27/2022) [facility] History of Past illness Narrative* Problem Noted Date Resolved Date Gluten intolerance 02/01/2019 04/03/2021 Overview: TTG suggested possible celiac, but endoscopy was neg. GI recommended rechecking at 15yo if Katelynn wants to know if she truly has celiac. Ligamentous laxity of ankle 06/04/201301/13 Acute atopic conjunctivitis 05/01/201201/13 Verruca 09/18/2010 02/01/2019 Obstructive sleep apnea 11/24/2009 11/25/19 10 Syncopes, vasovagal 07/29/2009 02/01/2019 documented as of this encounter (statuses as of 02/11/2022) [facility] History of Past illness Narrative* Problem Noted Date Resolved Date Gluten intolerance 02/01/2019 04/03/2021 Overview: TTG suggested possible celiac, but endoscopy was neg. GI recommended rechecking at 15yo if Katelynn wants to know if she truly has celiac. Ligamentous laxity of ankle 06/04/201301/13 Acute atopic conjunctivitis 05/01/201201/13 Verruca 09/18/2010 02/01/2019 Obstructive sleep apnea 11/24/2009 11/25/19 10 Syncopes, vasovagal 07/29/2009 02/01/2019 documented as of this encounter (statuses as of 02/11/2022) [facility] History of Past illness Narrative* Problem Noted Date Resolved Date Gluten intolerance 02/01/2019 04/03/2021 Overview: TTG suggested possible celiac, but endoscopy was neg. GI recommended rechecking at 15yo if Katelynn wants to know if she truly has celiac. Ligamentous laxity of ankle 06/04/201301/13 Acute atopic conjunctivitis 05/01/201201/13 Verruca 09/18/2010 02/01/2019 Obstructive sleep apnea 11/24/2009 11/25/19 10 Syncopes, vasovagal 07/29/2009 02/01/2019 documented as of this encounter (statuses as of 02/18/2022) [facility] History of Past illness Narrative* Problem Noted Date Resolved Date Gluten intolerance 02/01/2019 04/03/2021 Overview: TTG suggested possible celiac, but endoscopy was neg. GI recommended rechecking at 15yo if Katelynn wants to know if she truly has celiac. Ligamentous laxity of ankle 06/04/201301/13 Acute atopic conjunctivitis 05/01/201201/13 Verruca 09/18/2010 02/01/2019 Obstructive sleep apnea 11/24/2009 11/25/19 10 Syncopes, vasovagal 07/29/2009 02/01/2019 documented as of this encounter (statuses as of 03/03/2022) [facility] History of Past illness Narrative* Problem Noted Date Resolved Date Gluten intolerance 02/01/2019 04/03/2021 Overview: TTG suggested possible celiac, but endoscopy was neg. GI recommended rechecking at 15yo if Katelynn wants to know if she truly has celiac. Ligamentous laxity of ankle 06/04/201301/13 Acute atopic conjunctivitis 05/01/201201/13 Verruca 09/18/2010 02/01/2019 Obstructive sleep apnea 11/24/2009 11/25/19 10 Syncopes, vasovagal 07/29/2009 02/01/2019 documented as of this encounter (statuses as of 03/19/2022) [facility] History of Past illness Narrative* Problem Noted Date Resolved Date Gluten intolerance 02/01/2019 04/03/2021 Overview: TTG suggested possible celiac, but endoscopy was neg. GI recommended rechecking at 15yo if Katelynn wants to know if she truly has celiac. Ligamentous laxity of ankle 06/04/201301/13 Acute atopic conjunctivitis 05/01/201201/13 Verruca 09/18/2010 02/01/2019 Obstructive sleep apnea 11/24/2009 11/25/19 10 Syncopes, vasovagal 07/29/2009 02/01/2019 documented as of this encounter (statuses as of 03/25/2022) [facility] History of Past illness Narrative* Problem Noted Date Resolved Date Gluten intolerance 02/01/2019 04/03/2021 Overview: TTG suggested possible celiac, but endoscopy was neg. GI recommended rechecking at 15yo if Katelynn wants to know if she truly has celiac. Ligamentous laxity of ankle 06/04/201301/13 Acute atopic conjunctivitis 05/01/201201/13 Verruca 09/18/2010 02/01/2019 Obstructive sleep apnea 11/24/2009 11/25/19 10 Syncopes, vasovagal 07/29/2009 02/01/2019 documented as of this encounter (statuses as of 03/29/2022) [facility] History of Past illness Narrative* Problem Noted Date Resolved Date Gluten intolerance 02/01/2019 04/03/2021 Overview: TTG suggested possible celiac, but endoscopy was neg. GI recommended rechecking at 15yo if Katelynn wants to know if she truly has celiac. Ligamentous laxity of ankle 06/04/201301/13 Acute atopic conjunctivitis 05/01/201201/13 Verruca 09/18/2010 02/01/2019 Obstructive sleep apnea 11/24/2009 11/25/19 10 Syncopes, vasovagal 07/29/2009 02/01/2019 documented as of this encounter (statuses as of 06/07/2022) [facility] History of Past illness Narrative* Problem Noted Date Resolved Date Gluten intolerance 02/01/2019 04/03/2021 Overview: TTG suggested possible celiac, but endoscopy was neg. GI recommended rechecking at 15yo if Katelynn wants to know if she truly has celiac. Ligamentous laxity of ankle 06/04/201301/13 Acute atopic conjunctivitis 05/01/201201/13 Verruca 09/18/2010 02/01/2019 Obstructive sleep apnea 11/24/2009 11/25/19 10 Syncopes, vasovagal 07/29/2009 02/01/2019 documented as of this encounter (statuses as of 06/23/2022) [facility] History of Past illness Narrative* Problem Noted Date Diagnosed Date Resolved Date Gluten intolerance 02/01/2019 2 Overview: TTG suggested possible celiac, but endoscopy was neg. GI recommended rechecking at 15yo if Katelynn wants to know if she truly has celiac. Ligamentous laxity of ankle 06/04/2013 02/01/2019 Acute atopic conjunctivitis 05/01/2012 02/01/2019 Verruca 09/18/2010 02/01/2019 Obstructive sleep apnea 11/24/200911/12 Syncopes, vasovagal 07/29/2009 02/02/20 19 documented as of this encounter (statuses as of 12/23/2022) [facility] History of Past illness Narrative* Problem Noted Date Diagnosed Date Resolved Date Gluten intolerance 02/01/2019 2 Overview: TTG suggested possible celiac, but endoscopy was neg. GI recommended rechecking at 15yo if Katelynn wants to know if she truly has celiac. Ligamentous laxity of ankle 06/04/2013 02/01/2019 Acute atopic conjunctivitis 05/01/2012 02/01/2019 Verruca 09/18/2010 02/01/2019 Obstructive sleep apnea 11/24/200911/12 Syncopes, vasovagal 07/29/2009 02/02/20 19 documented as of this encounter (statuses as of 12/28/2022) [facility] History of Past illness Narrative* Problem Noted Date Diagnosed Date Resolved Date Gluten intolerance 02/01/2019 2 Overview: TTG suggested possible celiac, but endoscopy was neg. GI recommended rechecking at 15yo if Katelynn wants to know if she truly has celiac. Ligamentous laxity of ankle 06/04/2013 02/01/2019 Acute atopic conjunctivitis 05/01/2012 02/01/2019 Verruca 09/18/2010 02/01/2019 Obstructive sleep apnea 11/24/200911/12 Syncopes, vasovagal 07/29/2009 02/02/20 19 documented as of this encounter (statuses as of 01/24/2023) [facility] History of Past illness Narrative* Problem Noted Date Diagnosed Date Resolved Date Gluten intolerance 02/01/2019 2 Overview: TTG suggested possible celiac, but endoscopy was neg. GI recommended rechecking at 15yo if Katelynn wants to know if she truly has celiac. Ligamentous laxity of ankle 06/04/2013 02/01/2019 Acute atopic conjunctivitis 05/01/2012 02/01/2019 Verruca 09/18/2010 02/01/2019 Obstructive sleep apnea 11/24/200911/12 Syncopes, vasovagal 07/29/2009 02/02/20 19 documented as of this encounter (statuses as of 02/07/2023) [facility] History of Past illness Narrative* Problem Noted Date Diagnosed Date Resolved Date Gluten intolerance 02/01/2019 2 Overview: TTG suggested possible celiac, but endoscopy was neg. GI recommended rechecking at 15yo if Katelynn wants to know if she truly has celiac. Ligamentous laxity of ankle 06/04/2013 02/01/2019 Acute atopic conjunctivitis 05/01/2012 02/01/2019 Verruca 09/18/2010 02/01/2019 Obstructive sleep apnea 11/24/200911/12 Syncopes, vasovagal 07/29/2009 02/02/20 19 documented as of this encounter (statuses as of 05/16/2023) [facility] History of Past illness Narrative* Problem Noted Date Diagnosed Date Resolved Date Gluten intolerance 02/01/2019 2 Overview: TTG suggested possible celiac, but endoscopy was neg. GI recommended rechecking at 15yo if Katelynn wants to know if she truly has celiac. Ligamentous laxity of ankle 06/04/2013 02/01/2019 Acute atopic conjunctivitis 05/01/2012 02/01/2019 Verruca 09/18/2010 02/01/2019 Obstructive sleep apnea 11/24/200911/12 Syncopes, vasovagal 07/29/2009 02/02/20 19 documented as of this encounter (statuses as of 06/23/2023) [facility] Diagnosis Seasonal allergic rhinitis due to pollen- Primary [facility] Diagnosis Seasonal allergic rhinitis due to pollen- Primary [facility] Diagnosis Acute paronychia of finger of left hand- Primary [facility]* Diagnosis Attention deficit hyperactivity disorder (ADHD), unspecified ADHD type [facility] this [facility] Diagnosis Chronic seasonal allergic rhinitis due to pollen- Primary [facility] Diagnosis Seasonal allergic rhinitis due to pollen- Primary [facility] Diagnosis Seasonal allergic rhinitis due to pollen- Primary [facility] Diagnosis Acute pain of right knee- Primary [facility]* Diagnosis Non-seasonal allergic rhinitis due to other allergic trigger- Primary [facility]* Diagnosis Menstrual-related mood disorder Premenstrual tension syndromes Dysmenorrhea Surveillance for control, oral contraceptives Surveillance of previously prescribed contraceptive pill [facility] Diagnosis Attention deficit hyperactivity disorder (ADHD), unspecified ADHD type- Primary [facility] Diagnosis Chronic seasonal allergic rhinitis due to pollen- Primary [facility] Diagnosis Seasonal allergic rhinitis due to other allergic trigger- Primary [facility]* Diagnosis Strain of right calf muscle- Primary documented in this encounter [facility] note* Diagnosis Attention deficit hyperactivity disorder (ADHD), unspecified ADHD type [facility]* Diagnosis Seasonal allergic rhinitis due to pollen- Primary documented in this encounter [facility] note* Diagnosis Suspected COVID-19 virus infection- Primary documented in this encounter [facility] note* Diagnosis Attention deficit hyperactivity disorder (ADHD), unspecified ADHD type- Primary documented in this encounter [facility] note* Diagnosis Seasonal allergic rhinitis due to other allergic trigger- Primary documented in this encounter [facility] note* Diagnosis Attention deficit hyperactivity disorder (ADHD), unspecified ADHD type documented in this encounter [facility] noteNo assessment information availableW[facility] Work [facility]: Evaluation note* Diagnosis Seasonal allergic rhinitis due to other allergic trigger- Primary [facility]* Diagnosis Seasonal allergic rhinitis due to pollen- Primary documented in this encounter [facility] note* Diagnosis Seasonal allergic rhinitis due to other allergic trigger- Primary [facility]* Diagnosis Seasonal allergic rhinitis due to pollen- Primary Allergic rhinitis due to animal hair and dander Allergic rhinitis due to animal (cat) (dog) hair and dander Allergic rhinitis caused by mold [facility] this [facility]* Diagnosis Encounter for IUD insertion- Primary Encounter for insertion of intrauterine contraceptive device Encounter for surveillance of contraceptive pills Surveillance of previously prescribed contraceptive pill documented in this encounter [facility] note* Diagnosis Encounter for well child examination without abnormal findings- Primary Encounter for immunization Need for other specified prophylactic vaccination against single bacterial disease Foot pain, bilateral Pain in limb Attention deficit hyperactivity disorder (ADHD), unspecified ADHD type [facility]* Diagnosis Acute upper respiratory infection- Primary Acute upper respiratory infections of unspecified site [facility] Diagnosis Viral syndrome- Primary Unspecified viral infection, in conditions classified elsewhere and of unspecified site documented in this encounter [facility] note* Diagnosis Dysfunction of right eustachian tube- Primary Dysfunction of Eustachian tube Left flank pain Abdominal pain, unspecified site documented in this encounter [facility] note* Diagnosis Menstrual-related mood disorder Premenstrual tension syndromes Dysmenorrhea Surveillance for control, oral contraceptives Surveillance of previously prescribed contraceptive pill [facility]* Diagnosis Acute cystitis without hematuria- Primary Acute cystitis Urinary frequency Dysuria History of candidiasis of vagina documented in this encounter [facility] note* Diagnosis Attention deficit hyperactivity disorder (ADHD), unspecified ADHD type [facility]* Diagnosis Allergic eye reaction- Primary Other ill-defined disorder of eye documented in this encounter [facility] note* Diagnosis Weight gain- Primary Abnormal weight gain Encounter for immunization Need for other specified prophylactic vaccination against single bacterial disease Attention deficit hyperactivity disorder (ADHD), unspecified ADHD type Encounter for well child examination without abnormal findings [facility]* Diagnosis Attention deficit hyperactivity disorder (ADHD), unspecified ADHD type [facility] Diagnosis Attention deficit hyperactivity disorder (ADHD), unspecified ADHD type [facility]* Diagnosis Acute pain of right knee [facility]* Diagnosis Need for immunization against influenza- Primary Need for prophylactic vaccination and inoculation against influenza [facility] Diagnosis Acne vulgaris Other acne documented in this encounter [facility] note* Diagnosis Attention deficit hyperactivity disorder (ADHD), unspecified ADHD type documented in this encounter [facility] note* Diagnosis Generalized anxiety disorder- Primary Attention deficit hyperactivity disorder, combined type Attention deficit disorder with hyperactivity documented in this encounter [facility] note* Diagnosis Acne vulgaris Other acne Disease of lips Diseases of lips Xerosis cutis Other specified disease of sebaceous glands 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 documented in this encounter [facility] note* Diagnosis Attention deficit hyperactivity disorder (ADHD), unspecified ADHD type [facility] Diagnosis Attention deficit hyperactivity disorder (ADHD), unspecified ADHD type [facility]* Diagnosis Attention deficit hyperactivity disorder (ADHD), predominantly inattentive type- Primary documented in this encounter [facility] note* Diagnosis Routine screening for STI (sexually transmitted infection)- Primary Screening examination for venereal disease Ongoing accutane therapy Encounter for long-term (current) use of other medications Attention deficit hyperactivity disorder (ADHD), predominantly inattentive type Screening, iron deficiency anemia Screening for iron deficiency anemia Encounter for routine child health examination without abnormal findings Routine or child health check documented in this encounter [facility] note* Diagnosis Lipids abnormal- Primary Unspecified disorder of lipoid metabolism Elevated liver enzymes Other nonspecific abnormal serum enzyme levels Attention deficit hyperactivity disorder (ADHD), predominantly inattentive type documented in this encounter [facility] note* Diagnosis Attention deficit hyperactivity disorder (ADHD), predominantly inattentive type documented in this encounter [facility] for referral (narrative)* Diagnostic Procedure Only (Routine) - Closed Specialty Diagnoses / Procedures Referred By Katarina garcía Referred To Contact XR IMAGING Diagnoses Acute pain of right knee Procedures XR KNEE GENERAL 4V AP BOTH/PA BOTH/LAT/MERC RIGHT RADIOLOGIC EXAM KNEE COMPLETE 4/MORE VIEWS Matt Liang MD [address] [place] [address] Xr Imaging Referral ID Status Reason Start Date Expiration Date V isits Requested Visits Authorized [id number] Closed Auto-Generate d Referral 09/24/2021 10/24/2022 1 1 [facility] for referral (narrative)* Outpatient Procedure (Routine) - Pending Review Specialty Diagnoses / Procedures Referred By Katarina garcía Referred To Contact [facility] Diagnoses Encounter for IUD insertion Procedures INSERT INTRAUTERINE DEVICE LEVONORGESTREL IU 52MG 5 YR INSERT INTRAUTERINE DEVICE Taylor Márquez MD [address] [place] [address] [facility] [address] [place] [address] Referral ID Status Reason Start Date Expiration Date Visits Requested Visits Authorized [id number] Pending Review Auto-Generat ed Referral 03/29/2022 03/29/2023 1 1 [facility] for referral (narrative)* Diagnostic Procedure Only (Routine) - Closed Specialty Diagnoses / Procedures Referred By Contac t Referred To Contact XR IMAGING Diagnoses Acute pain of right knee Procedures XR KNEE GENERAL 4V AP BOTH/PA BOTH/LAT/MERC RIGHT RADIOLOGIC EXAM KNEE COMPLETE 4/MORE VIEWS Matt Liang MD [address] [place] [address] [place] [address] Referral ID Status Reason Start Date Expiration Date V isits Requested Visits Authorized [id number] Closed Auto-Generate d Referral 09/24/2021 10/24/2022 1 1 [facility] for visit Narrative* Diagnostic Procedure Only (Routine) - Closed Specialty Diagnoses / Procedures Referred By Katarina t Referred To Contact XR IMAGING Diagnoses Acute pain of right knee Procedures XR KNEE GENERAL 4V AP BOTH/PA BOTH/LAT/MERC RIGHT RADIOLOGIC EXAM KNEE COMPLETE 4/MORE VIEWS Matt Liang MD [address] [place] [address] [place] [address] Referral ID Status Reason Start Date Expiration Date V isits Requested Visits Authorized [id number] Closed Auto-Generate d Referral 09/24/2021 10/24/2022 1 1 [facility] Summary Purpose Family History Relationship Condition Age at Onset Recorded Date/T maida grandmother Osteoporosis Unknown Disorder of thyroid Unknown Malignant neoplasm of uterus Unknown mother Disorder of thyroid Unknown Advance Directives Documents on File Type Date Recorded 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 RX HERE Reason for Referral Specialty Diagnoses / Procedures Referred By Katarina garcía Referred To Contact Podiatry Diagnoses Foot pain, bilateral Procedures CONSULT TO PODIATRY OFFICE/OUTPATIENT [facility] 60-74 MINUTES Fay Calderon MD [address] [place] [address] Referral ID Status Reason Start Date Expiration Date Visits Requested Visits Authorized [id number] Authorized PCP Requested Referral 06/07/2022 06/07/2023 1 1 Additional Source Comments INFORMATION SOURCE (unrecogn ized section and content) DATE CREATED AUTHOR 08/13/[address] [facility] DATE CREATED AUTHOR AUTHOR'S ORGANIZ ATION 02/13/2022 [facility] DATE CREATED AUTHOR AUTHOR'S ORGANIZ ATION 04/30/2024 [facility] DATE CREATED AUTHOR AUTHOR'S ORGANIZ ATION 10/21/2024 [facility] Source Comments (unrecognize d section and content) In the event this informatio n is protected by the Federal Confidentiality of Alcohol and Drug Abuse Patient Records regulations: The Federal rules restrict any use of the information to criminally investigate or prosecute any alcohol or drug abuse patient.[facility] Center[facility] the event this information is protected by the Federal Confidentiality of Alcohol and Drug Abuse Patient Records regulations: The Federal rules restrict any use of the information to criminally investigate or prosecute any alcohol or drug abuse patient.[facility] CenterIn the event this information is protected by the Federal Confidentiality of Alcohol and Drug Abuse Patient Records regulations: The Federal rules restrict any use of the information to criminally investigate or prosecute any alcohol or drug abuse patient.[facility] CenterIn the event this information is protected by the Federal Confidentiality of Alcohol and Drug Abuse Patient Records regulations: The Federal rules restrict any use of the information to criminally investigate or prosecute any alcohol or drug abuse patient.[facility] CenterIn the event this information is protected by the Federal Confidentiality of Alcohol and Drug Abuse Patient Records regulations: The Federal rules restrict any use of the information to criminally investigate or prosecute any alcohol or drug abuse patient.[facility] CenterIn the event this information is protected by the Federal Confidentiality of Alcohol and Drug Abuse Patient Records regulations: The Federal rules restrict any use of the information to criminally investigate or prosecute any alcohol or drug abuse patient.[facility] CenterIn the event this information is protected by the Federal Confidentiality of Alcohol and Drug Abuse Patient Records regulations: The Federal rules restrict any use of the information to criminally investigate or prosecute any alcohol or drug abuse patient.[facility] CenterIn the event this information is protected by the Federal Confidentiality of Alcohol and Drug Abuse Patient Records regulations: The Federal rules restrict any use of the information to criminally investigate or prosecute any alcohol or drug abuse patient.[facility] CenterIn the event this information is protected by the Federal Confidentiality of Alcohol and Drug Abuse Patient Records regulations: The Federal rules restrict any use of the information to criminally investigate or prosecute any alcohol or drug abuse patient.[facility] CenterIn the event this information is protected by the Federal Confidentiality of Alcohol and Drug Abuse Patient Records regulations: The Federal rules restrict any use of the information to criminally investigate or prosecute any alcohol or drug abuse patient.[facility] CenterIn the event this information is protected by the Federal Confidentiality of Alcohol and Drug Abuse Patient Records regulations: The Federal rules restrict any use of the information to criminally investigate or prosecute any alcohol or drug abuse patient.[facility] CenterIn the event this information is protected by the Federal Confidentiality of Alcohol and Drug Abuse Patient Records regulations: The Federal rules restrict any use of the information to criminally investigate or prosecute any alcohol or drug abuse patient.[facility] CenterIn the event this information is protected by the Federal Confidentiality of Alcohol and Drug Abuse Patient Records regulations: The Federal rules restrict any use of the information to criminally investigate or prosecute any alcohol or drug abuse patient.[facility] CenterIn the event this information is protected by the Federal Confidentiality of Alcohol and Drug Abuse Patient Records regulations: The Federal rules restrict any use of the information to criminally investigate or prosecute any alcohol or drug abuse patient.[facility] CenterIn the event this information is protected by the Federal Confidentiality of Alcohol and Drug Abuse Patient Records regulations: The Federal rules restrict any use of the information to criminally investigate or prosecute any alcohol or drug abuse patient.[facility] CenterIn the event this information is protected by the Federal Confidentiality of Alcohol and Drug Abuse Patient Records regulations: The Federal rules restrict any use of the information to criminally investigate or prosecute any alcohol or drug abuse patient.[facility] CenterIn the event this information is protected by the Federal Confidentiality of Alcohol and Drug Abuse Patient Records regulations: The Federal rules restrict any use of the information to criminally investigate or prosecute any alcohol or drug abuse patient.[facility] CenterIn the event this information is protected by the Federal Confidentiality of Alcohol and Drug Abuse Patient Records regulations: The Federal rules restrict any use of the information to criminally investigate or prosecute any alcohol or drug abuse patient.[facility] CenterIn the event this information is protected by the Federal Confidentiality of Alcohol and Drug Abuse Patient Records regulations: The Federal rules restrict any use of the information to criminally investigate or prosecute any alcohol or drug abuse patient.[facility] CenterIn the event this information is protected by the Federal Confidentiality of Alcohol and Drug Abuse Patient Records regulations: The Federal rules restrict any use of the information to criminally investigate or prosecute any alcohol or drug abuse patient.[facility] CenterIn the event this information is protected by the Federal Confidentiality of Alcohol and Drug Abuse Patient Records regulations: The Federal rules restrict any use of the information to criminally investigate or prosecute any alcohol or drug abuse patient.[facility] CenterIn the event this information is protected by the Federal Confidentiality of Alcohol and Drug Abuse Patient Records regulations: The Federal rules restrict any use of the information to criminally investigate or prosecute any alcohol or drug abuse patient.[facility] CenterIn the event this information is protected by the Federal Confidentiality of Alcohol and Drug Abuse Patient Records regulations: The Federal rules restrict any use of the information to criminally investigate or prosecute any alcohol or drug abuse patient.[facility] CenterIn the event this information is protected by the Federal Confidentiality of Alcohol and Drug Abuse Patient Records regulations: The Federal rules restrict any use of the information to criminally investigate or prosecute any alcohol or drug abuse patient.[facility] CenterIn the event this information is protected by the Federal Confidentiality of Alcohol and Drug Abuse Patient Records regulations: The Federal rules restrict any use of the information to criminally investigate or prosecute any alcohol or drug abuse patient.[facility] CenterIn the event this information is protected by the Federal Confidentiality of Alcohol and Drug Abuse Patient Records regulations: The Federal rules restrict any use of the information to criminally investigate or prosecute any alcohol or drug abuse patient.[facility] CenterIn the event this information is protected by the Federal Confidentiality of Alcohol and Drug Abuse Patient Records regulations: The Federal rules restrict any use of the information to criminally investigate or prosecute any alcohol or drug abuse patient.[facility] CenterIn the event this information is protected by the Federal Confidentiality of Alcohol and Drug Abuse Patient Records regulations: The Federal rules restrict any use of the information to criminally investigate or prosecute any alcohol or drug abuse patient.[facility] CenterIn the event this information is protected by the Federal Confidentiality of Alcohol and Drug Abuse Patient Records regulations: The Federal rules restrict any use of the information to criminally investigate or prosecute any alcohol or drug abuse patient.[facility] CenterIn the event this information is protected by the Federal Confidentiality of Alcohol and Drug Abuse Patient Records regulations: The Federal rules restrict any use of the information to criminally investigate or prosecute any alcohol or drug abuse patient.[facility] CenterIn the event this information is protected by the Federal Confidentiality of Alcohol and Drug Abuse Patient Records regulations: The Federal rules restrict any use of the information to criminally investigate or prosecute any alcohol or drug abuse patient.[facility] CenterIn the event this information is protected by the Federal Confidentiality of Alcohol and Drug Abuse Patient Records regulations: The Federal rules restrict any use of the information to criminally investigate or prosecute any alcohol or drug abuse patient.[facility] CenterIn the event this information is protected by the Federal Confidentiality of Alcohol and Drug Abuse Patient Records regulations: The Federal rules restrict any use of the information to criminally investigate or prosecute any alcohol or drug abuse patient.[facility] CenterIn the event this information is protected by the Federal Confidentiality of Alcohol and Drug Abuse Patient Records regulations: The Federal rules restrict any use of the information to criminally investigate or prosecute any alcohol or drug abuse patient.[facility] CenterIn the event this information is protected by the Federal Confidentiality of Alcohol and Drug Abuse Patient Records regulations: The Federal rules restrict any use of the information to criminally investigate or prosecute any alcohol or drug abuse patient.[facility] CenterIn the event this information is protected by the Federal Confidentiality of Alcohol and Drug Abuse Patient Records regulations: The Federal rules restrict any use of the information to criminally investigate or prosecute any alcohol or drug abuse patient.[facility] CenterIn the event this information is protected by the Federal Confidentiality of Alcohol and Drug Abuse Patient Records regulations: The Federal rules restrict any use of the information to criminally investigate or prosecute any alcohol or drug abuse patient.[facility] CenterIn the event this information is protected by the Federal Confidentiality of Alcohol and Drug Abuse Patient Records regulations: The Federal rules restrict any use of the information to criminally investigate or prosecute any alcohol or drug abuse patient.[facility] CenterIn the event this information is protected by the Federal Confidentiality of Alcohol and Drug Abuse Patient Records regulations: The Federal rules restrict any use of the information to criminally investigate or prosecute any alcohol or drug abuse patient.[facility] CenterIn the event this information is protected by the Federal Confidentiality of Alcohol and Drug Abuse Patient Records regulations: The Federal rules restrict any use of the information to criminally investigate or prosecute any alcohol or drug abuse patient.[facility] CenterIn the event this information is protected by the Federal Confidentiality of Alcohol and Drug Abuse Patient Records regulations: The Federal rules restrict any use of the information to criminally investigate or prosecute any alcohol or drug abuse patient.[facility] CenterIn the event this information is protected by the Federal Confidentiality of Alcohol and Drug Abuse Patient Records regulations: The Federal rules restrict any use of the information to criminally investigate or prosecute any alcohol or drug abuse patient.[facility] CenterIn the event this information is protected by the Federal Confidentiality of Alcohol and Drug Abuse Patient Records regulations: The Federal rules restrict any use of the information to criminally investigate or prosecute any alcohol or drug abuse patient.[facility] CenterIn the event this information is protected by the Federal Confidentiality of Alcohol and Drug Abuse Patient Records regulations: The Federal rules restrict any use of the information to criminally investigate or prosecute any alcohol or drug abuse patient.[facility] CenterIn the event this information is protected by the Federal Confidentiality of Alcohol and Drug Abuse Patient Records regulations: The Federal rules restrict any use of the information to criminally investigate or prosecute any alcohol or drug abuse patient.[facility] CenterIn the event this information is protected by the Federal Confidentiality of Alcohol and Drug Abuse Patient Records regulations: The Federal rules restrict any use of the information to criminally investigate or prosecute any alcohol or drug abuse patient.[facility] CenterIn the event this information is protected by the Federal Confidentiality of Alcohol and Drug Abuse Patient Records regulations: The Federal rules restrict any use of the information to criminally investigate or prosecute any alcohol or drug abuse patient.[facility] CenterIn the event this information is protected by the Federal Confidentiality of Alcohol and Drug Abuse Patient Records regulations: The Federal rules restrict any use of the information to criminally investigate or prosecute any alcohol or drug abuse patient.[facility] CenterIn the event this information is protected by the Federal Confidentiality of Alcohol and Drug Abuse Patient Records regulations: The Federal rules restrict any use of the information to criminally investigate or prosecute any alcohol or drug abuse patient.[facility] CenterIn the event this information is protected by the Federal Confidentiality of Alcohol and Drug Abuse Patient Records regulations: The Federal rules restrict any use of the information to criminally investigate or prosecute any alcohol or drug abuse patient.[facility] CenterIn the event this information is protected by the Federal Confidentiality of Alcohol and Drug Abuse Patient Records regulations: The Federal rules restrict any use of the information to criminally investigate or prosecute any alcohol or drug abuse patient.[facility] CenterIn the event this information is protected by the Federal Confidentiality of Alcohol and Drug Abuse Patient Records regulations: The Federal rules restrict any use of the information to criminally investigate or prosecute any alcohol or drug abuse patient.[facility] CenterIn the event this information is protected by the Federal Confidentiality of Alcohol and Drug Abuse Patient Records regulations: The Federal rules restrict any use of the information to criminally investigate or prosecute any alcohol or drug abuse patient.[facility] CenterIn the event this information is protected by the Federal Confidentiality of Alcohol and Drug Abuse Patient Records regulations: The Federal rules restrict any use of the information to criminally investigate or prosecute any alcohol or drug abuse patient.[facility] CenterIn the event this information is protected by the Federal Confidentiality of Alcohol and Drug Abuse Patient Records regulations: The Federal rules restrict any use of the information to criminally investigate or prosecute any alcohol or drug abuse patient.[facility] CenterIn the event this information is protected by the Federal Confidentiality of Alcohol and Drug Abuse Patient Records regulations: The Federal rules restrict any use of the information to criminally investigate or prosecute any alcohol or drug abuse patient.[facility] CenterIn the event this information is protected by the Federal Confidentiality of Alcohol and Drug Abuse Patient Records regulations: The Federal rules restrict any use of the information to criminally investigate or prosecute any alcohol or drug abuse patient.[facility] Reason for Visit (unrecogniz ed section and content) Reason Onset Date Comments Immunotherapy Allergy Injection 07/01/2021 Reason Onset Date Comments Immunotherapy Allergy Injection 07/08/2021 Reason Comments Pain Pt presented with pa rent x2 days prior (LT) finger abrasion with blister, pain rated 8 with touch Reason Onset Date Comments Refill Request 07/20/2021 Reason Onset Date Comments Immunotherapy Allergy Injection 08/05/2021 Reason Onset Date Comments Immunotherapy Allergy Injection 09/02/2021 Reason Onset Date Comments Immunotherapy Allergy Injection 09/10/2021 Reason Onset Date Comments Immunotherapy Allergy Injection 09/17/2021 Reason Onset Date Comments Immunotherapy Allergy Injection 09/23/2021 Reason Comments Knee Pain woke up yesterday fr om a nap and felt a sharp pain in right knee - no known injury Reason Onset Date Comments Immunotherapy Allergy Injection 10/08/2021 Reason Onset Date Comments Refill Request 10/15/2021 Reason Onset Date Comments Immunotherapy Allergy Injection 10/15/2021 Reason Comments Medication check Adderall XR 20mg Reason Onset Date Comments Immunotherapy Allergy Injection 11/04/2021 Reason Onset Date Comments Immunotherapy Allergy Injection 11/18/2021 Reason Comments Leg Pain Reason Comments Calf Pain Right calf pain, sta rted hurting night. Hurts when flexing or standing on it. Reason Comments Question Reason Onset Date Comments Refill Request 12/07/2021 Reason Onset Date Comments Allergy Injection 12/09/2021 Immunotherapy Reason Comments Future Appointment Reason Comments Pain, Throat Throat pain rated 2, nasal congestion+Covid exposure x4 days. Reason Onset Date Comments Immunotherapy Allergy Injection 01/14/2022 Reason Onset Date Comments Refill Request 01/27/2022 Reason Onset Date Comments Refill Request 02/11/2022 Reason Onset Date Comments Immunotherapy Allergy Injection 02/18/2022 Reason Onset Date Comments Immunotherapy Allergy Injection 03/03/2022 Reason Onset Date Comments Immunotherapy Allergy Injection 03/18/2022 Reason Comments Established Patient Allergy follow up Reason Comments Discussion Pt is wanting an IUD Reason Comments Well Adult 17 year old Reason Comments Cough Prolonged cough for about 3 weeks now. Reason Comments Cough Reason Comments Ear Pain Right ear pain since 01/03. Nasal Congestion Cough Pain Left side pain Reason Onset Date Comments Refill Request 01/23/2023 Reason Comments Urinary Frequency Urinary frequency, u rgency, and dysuria since last hs; denies fever, chills, N/V/hematuria or flank pain Reason Onset Date Comments Refill Request 05/16/2023 Reason Onset Date Comments Refill Request 06/23/2023 Reason Comments Eye Pain Left eye pain x 2 da ys. States she does have allergies and thought that's why eye was itching and watering. This morning pain started. Describes pain as slightly achy and irritation. Denies FO in eye. Reason Comments Well Adult 18 year old Reason Onset Date Comments Refill Request 09/27/2023 Reason Onset Date Comments Refill Request 10/20/2023 Reason Onset Date Comments Refill Request 11/28/2023 Reason Onset Date Comments Refill Request 01/09/2024 Reason Comments Immunization/Injection Flu shot Reason Comments Labs Only Reason Onset Date Comments Refill Request 02/14/2024 Reason Comments Anxiety ADHD Reason Onset Date Comments Refill Request 05/14/2024 Reason Onset Date Comments Refill Request 05/06/2024 Reason Comments Well Child 19 year old Reason Onset Date Comments Refill Request 10/11/2024 Care Teams (unrecognized sec tion and content) Hydraulic Design Engineer Relationship Specialty Start Date End Date Fay Calderon MD [address] [place] [address] PCP - General Pediatrics 04/24/18 Hydraulic Design Engineer Relationship Specialty Start Date End Date Fay Calderon MD [address], [place] [address] PCP - General Pediatrics 04/24/18 Hydraulic Design Engineer Relationship Specialty Start Date End Date Fay Calderon MD [address] [place], [place] [id number] PCP - General Pediatrics 04/24/18 Hydraulic Design Engineer Relationship Specialty Start Date End Date Fay Calderon MD [address] [place] [address] PCP - General Pediatrics 04/24/18 Hydraulic Design Engineer Relationship Specialty Start Date End Date Fay Calderon MD [address] [place] [address] PCP - General Pediatrics 04/24/18 Hydraulic Design Engineer Relationship Specialty Start Date End Date Fay Calderon MD [address] [place] [address] PCP - General Pediatrics 04/24/18 Hydraulic Design Engineer Relationship Specialty Start Date End Date Fay Calderon MD [address] [place] [address] PCP - General Pediatrics 04/24/18 Hydraulic Design Engineer Relationship Specialty Start Date End Date Fay Calderon MD [address] [place] [address] PCP - General Pediatrics 04/24/18 Hydraulic Design Engineer Relationship Specialty Start Date End Date Fay Calderon MD [address] [place] [address] PCP - General Pediatrics 04/24/18 Hydraulic Design Engineer Relationship Specialty Start Date End Date Fay Calderon MD [address] [place] [address] PCP - General Pediatrics 04/24/18 Hydraulic Design Engineer Relationship Specialty Start Date End Date Fay Calderon MD [address] [place] [address] PCP - General Pediatrics 04/24/18 Hydraulic Design Engineer Relationship Specialty Start Date End Date Fay Calderon MD [address] [place] [address] PCP - General Pediatrics 04/24/18 Hydraulic Design Engineer Relationship Specialty Start Date End Date Fay Calderon MD [address] [place] [address] PCP - General Pediatrics 04/24/18 Hydraulic Design Engineer Relationship Specialty Start Date End Date Fay Calderon MD [address] [place] [address] PCP - General Pediatrics 04/24/18 Hydraulic Design Engineer Relationship Specialty Start Date End Date Fay Calderon MD [address] [place] [address] PCP - General Pediatrics 04/24/18 Hydraulic Design Engineer Relationship Specialty Start Date End Date Fay Calderon MD [address] [place] [address] PCP - General Pediatrics 04/24/18 Hydraulic Design Engineer Relationship Specialty Start Date End Date Fay Calderon MD [address] [place] [address] PCP - General Pediatrics 12/20/22 Hydraulic Design Engineer Relationship Specialty Start Date End Date Fay Calderon MD [address] [place] [address] PCP - General Pediatrics 04/24/18 Hydraulic Design Engineer Relationship Specialty Start Date End Date Fay Calderon MD [address] [place] [address] PCP - General Pediatrics 04/24/18 Hydraulic Design Engineer Relationship Specialty Start Date End Date Fay Calderon MD [address] [place] [address] PCP - General Pediatrics 12/20/22 Hydraulic Design Engineer Relationship Specialty Start Date End Date Fay Calderon MD [address] [place] [address] PCP - General Pediatrics 04/24/18 Hydraulic Design Engineer Relationship Specialty Start Date End Date Fay Calderon MD [address] [place] [address] PCP - General Pediatrics 04/24/18 Hydraulic Design Engineer Relationship Specialty Start Date End Date Fay Calderon MD [address] [place] [address] PCP - General Pediatrics 12/20/22 Hydraulic Design Engineer Relationship Specialty Start Date End Date Fay Calderon MD [address] [place] [address] PCP - General Pediatrics 04/24/18 Hydraulic Design Engineer Relationship Specialty Start Date End Date Fay Calderon MD [address] [place] [address] PCP - General Pediatrics 12/20/22 Hydraulic Design Engineer Relationship Specialty Start Date End Date Fay Calderon MD [address] [place] [address] PCP - General Pediatrics 04/24/18 Hydraulic Design Engineer Relationship Specialty Start Date End Date Fay Calderon MD [address] [place] [address] PCP - General Pediatrics 04/24/18 Hydraulic Design Engineer Relationship Specialty Start Date End Date Fay Calderon MD [address] [place] [address] PCP - General Pediatrics 04/24/18 Hydraulic Design Engineer Relationship Specialty Start Date End Date Fay Calderon MD [address] [place] [address] PCP - General Pediatrics 12/20/22 Hydraulic Design Engineer Relationship Specialty Start Date End Date Fay Calderon MD [address] [place] [address] PCP - General Pediatrics 12/20/22 Hydraulic Design Engineer Relationship Specialty Start Date End Date Fay Calderon MD [address] [place] [address] PCP - General Pediatrics 04/24/18 Hydraulic Design Engineer Relationship Specialty Start Date End Date Fay Calderon MD [address] [place] [address] PCP - General Pediatrics 12/20/22 Hydraulic Design Engineer Relationship Specialty Start Date End Date Fay Calderon MD [address] [place] [address] PCP - General Pediatrics 12/20/22 Hydraulic Design Engineer Relationship Specialty Start Date End Date Fay Calderon MD [address] [place] [address] PCP - General Pediatrics 04/24/18 Hydraulic Design Engineer Relationship Specialty Start Date End Date Fay Calderon MD [address] [place] [address] PCP - General Pediatrics 04/24/18 Hydraulic Design Engineer Relationship Specialty Start Date End Date Fay Calderon MD [address] [place] [address] PCP - General Pediatrics 04/24/18 Hydraulic Design Engineer Relationship Specialty Start Date End Date Fay Calderon MD [address] [place] [address] PCP - General Pediatrics 04/24/18 Hydraulic Design Engineer Relationship Specialty Start Date End Date Fay Calderon MD [address] [place] [address] PCP - General Pediatrics 04/24/18 FOR RECORDS PERTAINING TO PATIENTS WHO ARE OR HAVE BEEN ENROLLED IN A CHEMICAL DEPENDENCY/SUBSTANCEABUSE PROGRAM, SOME INFORMATION MAY BE OMITTED. This clinical summary was aggregated from multiple sources. Caution should be exercised in using it in the provision of clinical care. This summary normalizes information from multiple sources, and as a consequence, information in this document may materially change the coding, format and clinical context of patient data. In addition, data may be omitted in some cases. CLINICAL DECISIONS SHOULD BE BASED ON THE PRIMARY CLINICAL RECORDS. [employer] [facility]. provides no warranty or guarantee of the accuracy or completeness of information in this document.
== END | disposition home or self-care (01) ==
LOC: LABSPEC 16:10
PROVIDERS: PCP Pediatrics; Referring Provider Otolaryngology; Visit Provider Otolaryngology
DX: J03.90 Acute tonsillitis, unspecified (principal)
CPT/HCPCS: 87070; 87077; 87186